=== PATIENT | female | born 1980 | race Caucasian/White ===

== ENCOUNTER 2017-12-11 01:31 | Emergency (ER) | payer SELFPAY ==
--- OUTSIDE RECORDS SUMMARY | 2017-12-11 01:33 | XMS REPORT ---
:1980 [facility] [address] [place] [address] [place] [id number] Care Team Providers Name Role Phone UNKNOWN, REFFERING Primary Care Provider Unavailable JUN LOWERY M.D. Unavailable Unavailable Problems This patient has no known problems. Allergies, Adverse Reactions, Alerts This patient has no known allergies or adverse reactions. Medications This patient has no known medications. Results Test Description Test Time Test Comments Text Results Atomic Results Result Comments Chlamydia/GC Amplification 2017-08-26 12:49:00 Test Item Value Reference Range Comments Chlamydia trachomatis, CECILIA (test vsec=601776) Negative Negative Neisseria gonorrhoeae, CECILIA (test wnwx=[id number]) Negative Negative Smear, Wet [id number] 10:19:00 Test Item Value Reference Range Comments WBC (test code=JWBC) NONE EPITHELIAL CELLS (test code=JEPITH) MODERATE BACTERIA (test code=JBACTERIA) MODERATE CLUE CELLS (test code=JCLUE) NONE YEAST (test code=JYEAST) NONE TRICHOMONAS (test code=JTRICH) NONE RPR, [id number] 02:13:00 Test Item Value Reference Range Comments RPR (test code=RPR) Non-Reactive Non-Reactive Thyroid Stimulating Hormone (TSH)2017-08-21 08:25:00 Test Item Value Reference Range Comments TSH (test code=TSH) 1.67 mIU/mL 0.270-4.200 Lipid [id number] 08:25:00 Test Item Value Reference Range Comments Cholesterol (test 172 mg/dL 0-200 code=CHOL) Triglycerides (test 106 mg/dL 9-200 code=TRIG) HDL (test code=HDL) 43 mg/dL 50-60 Chol/HDL (test 4.0 Ratio 0.0-4.4 code=CHOLPHDL) LDL, Calculated (test 108 0-130 (NOTE)RISK OF HEART code=LDLC) DISEASEPublished by [place] Heart AssociationAnalyte Optimal Boderline Increased RiskCHOL <200 200-239 >240TRIG <150 150-199 >200HDL Male: >60 <40HDL Female: >60 <50LDL <100 130-159 >160LDL NEAR OPTIMAL IS 100-129 VLDL (test code=VLDL) 21 mg/dL 5-40 LDL/HDL (test code=LDLPHDL) 3 BHCG, Serum, [id number] 07:53:00 Test Item Value Reference Range Comments Preg Qual [Se] (test code=BSHCG) Negative Negative Alcohol/Ethanol, [id number] 20:38:00 Test Item Value Reference Range Comments Alcohol, Ethyl (test <0.01 g/dL 0.00-0.01 Intoxicated 0.080 g/dL or code=ETOH) more Comprehensive Metabolic [id number] 20:38:00 Test Item Value Reference Range Comments Sodium (test code=NA) 137 mmol/L 135-145 Potassium (test code=K) 4.2 mmol/L 3.5-5.1 Chloride (test code=CL) 99 mmol/L 98-105 Carbon Dioxide (test 23 mmol/L 22-29 code=CO2) Glucose (test code=GLU) 83 mg/dL 70-115 Blood Urea Nitrogen 18 mg/dL 6-20 (test code=BUN) Creatinine (test 0.8 mg/dL 0.5-0.9 code=CREAT) Calcium (test code=CA) 10.2 mg/dL 8.3-10.5 Prot Total (test 9.1 g/dL 6.4-8.3 code=TP) Albumin (test code=ALB) 5.5 g/dL 3.5-5.2 A/G Ratio (test 1.5 Ratio code=AGRATIO) Globulin (test 3.6 2.9-3.1 code=GLOB) Bili Total (test 0.7 mg/dL 0.1-0.9 code=TBIL) Alk Phos (test 48 U/L 35-104 code=APHOS) AST (test code=AST) 16 U/L 1-32 ALT (test code=ALT) 11 U/L 1-33 BUN/Creatinine Ratio 22.5 (test code=BCRATIO) Anion Gap (test 15 mmol/L 7-16 code=AGAP) Estimated GFR (test >60 eGFR (estimated Glomerular code=GFR) mL/min/1.73m2 Filtration Rate) is an estimated value,calculated from the patient's serum creatinine using the MDRD equation.It is NOT the patient's actual GFR. The eGFR provides a more clinicallyuseful measure of kidney disease than serum creatinine alone.This calculation takes sex and race into account, if the informationis provided. If the race is not provided, and the patient isAfrican-[place]ian, multiply by 1.212. If sex is not provided, and thepatient is female, multiply by 0.742. Results for patients <18 years ofage have not been validated by the MDRD study and should be interpretedwith caution.eGFR Result Interpretation:eGFR > or=60 is in the Normal RangeeGFR < 60 may mean kidney diseaseeGFR < 15 may mean kidney failureRanges recommended by the National Kidney Foundation,http://nkdep.ni h.gov [id number] 20:31:00 Test Item Value Reference Range Comments Amphetamine (test code=AMPH) POSITIVE Negative For diagnostic purposes only, positive results should always be assessedin conjunctionwith the patient's medical history,clinical examination and otherfindings.To fulfill legal requirements, a more specific alternate chemical methodmust be used inorder to obtain a Confirmed analytical result. GC/MS is the preferred confirmatory method. Barbiturates (test code=KYRIE) Negative Negative Benzodiazepine (test Negative Negative code=CHARLIE) Cocaine (test code=COCA) Negative Negative Opiates (test code=OPIA) Negative Negative PCP (test code=PCP) Negative Negative THC (test code=THC) POSITIVE Negative CBC with [id number] 20:30:00 Test Item Value Reference Range Comments WBC (test code=WBC) 14.6 K/cumm 4.4-10.5 RBC (test code=RBC) 4.89 M/cumm 3.75-5.20 Hemoglobin (test code=HGB) 14.6 gm/dL 12.2-14.8 Hematocrit (test code=HCT) 41.7 % 36.5-44.4 MCV (test code=MCV) 85.2 fL 80-100 MCH (test code=MCH) 29.9 pg 27.0-32.5 MCHC (test code=MCHC) 35.1 g/dL 32.0-37.5 RDW (test code=RDW) 14.2 % 11.5-14.5 Platelet Count (test code=PLTCT) 351 K/cumm 140-440 MPV (test code=MPV) 9.5 fL Diff Method (test code=DIFFM) Auto Neutrophil (test code=NEUT) 51.6 % 36-70 Lymphocyte (test code=LYMPH) 39.7 % 12-44 Monocyte (test code=MONO) 5.1 % 0-11 Eosinophil (test code=EOS) 3.0 % 0-7 Basophil (test code=BASO) 0.7 % 0-2 Neutro Abs (test code=ANEUT) 7.5 K/cumm 1.6-7.4 Lymph Abs (test code=ALYMPH) 5.8 K/cumm 0.5-4.6 Limestone Abs (test code=AMONO) 0.8 K/cumm 0.0-1.2 Eos Abs (test code=AEOS) 0.43 K/cumm 0.00-0.74 Baso Abs (test code=ABASO) 0.1 K/cumm 0.00-0.21 BHCG, Serum, [id number] 20:29:00 Test Item Value Reference Range Comments Preg Qual [Se] (test code=BSHCG) Negative Negative
[2017-12-11] MEDS ORDERED: ONDANSETRON 4 MG/2 ML VIAL ONE (02:32)
[2017-12-11] MEDS ORDERED: NA CHLORIDE 0.9% 1,000 ML ONE (02:33)
[2017-12-11 02:42] LABS: Absolute Lymphocytes (CBC) 4.2 K/uL (0.7-4.9); Absolute Monocytes 0.6 K/uL (0.1-1.3); Absolute Neutrophil 3.2 K/uL (1.8-8.0); Basophils % 0.8 % (0-1.3); Eosinophils % 3.5 % (0-4.4); Hematocrit 37.6 % (36.0-45.0); Lymphocytes % 50.4 % (15.3-44.8); MCV 90.2 fL (80-100); MPV 8.6 fL (7.6-11.3); RBC Red Blood Cell Count 4.17 M/uL (3.86-4.86)
[2017-12-11 02:52] LABS: Bicarbonate 27 mEq/L (21-31); Glucose Level 91 mg/dL (65-120); Lipase 38 U/L (22-51); Potassium 3.3 mEq/L (3.6-5.0); Sodium Level 139 mEq/L (135-145)
[2017-12-11 02:58] LABS: ALT/SGPT 13 IU/L (10-60); AST/SGOT 18 IU/L (10-42); Albumin 4.1 g/dL (3.2-5.5); Alkaline Phosphatase 40 IU/L (42-121); Amylase Level 72 U/L (28-100); BUN Blood Urea Nitrogen 13 mg/dL (6-20); Bilirubin Direct < 0.1 mg/dL (0-0.2); Bilirubin Total 0.3 mg/dL (0.3-1.2)
[2017-12-11 03:05] LABS: Urine Blood NEGATIVE (NEG); Urine Glucose NEGATIVE (NEG); Urine Protein NEGATIVE (NEG); Urine Specific Gravity 1.025 (1.005-1.030)
[2017-12-11 03:09] LABS: Urine Amorphous Sediment 4+ /HPF (NONE SEEN)
[2017-12-11 03:10] LABS: Urine Bacteria <20 /HPF (<20); Urine Culture Reflex Order NOT NEEDED; Urine RBC NONE SEEN /HPF (NONE SEEN)
[2017-12-11] MEDS ORDERED: POTASSIUM CL SA 10 MEQ TAB PO ONE (03:20)
[2017-12-11] MEDS ORDERED: METRONIDAZOLE 500mg IVPB 500 MG/100 ML BAG IV ONE (05:23)
[2017-12-11] MEDS ORDERED: AZITHROMYCIN 250 MG TAB ONE (05:23)
--- NOTE | 2017-12-11 05:26 | ER ---
Nurse's Notes [facility] Name: Iliana Tolentino Age: 37 yrs Sex: Female : 1980 Arrival Date: 12/11/2017 Time: 01:33 Bed 15 Private MD: Diagnosis: Abdominal tenderness;Diverticular disease of intestine-sigmoid;Left sided colitis Presentation: 12/11 01:34 Presenting complaint: EMS states: "She is having upper abdominal pain for the last few ao days. Patient reports a positive test and a late menstruation period." Patient positive for nausea. Transition of care: patient was not received from another setting of care. Onset of symptoms is unknown. Initial Sepsis Screen: Does the patient meet any 2 criteria? No. Patient's initial sepsis screen is negative. Does the patient have a suspected source of infection? No. Patient's initial sepsis screen is negative. Care prior to arrival: None. 01:34 Method Of Arrival: EMS: [facility] ao 01:34 Acuity: KAROL 3 ao Triage Assessment: 01:39 General: Appears in no apparent distress. comfortable, Behavior is calm, cooperative, ao appropriate for age. General: Report use of meth. Pain: Complains of pain in abdomen Pain currently is 6 out of 10 on a pain scale. EENT: No signs and/or symptoms were reported regarding the EENT system. Neuro: Level of Consciousness is awake, alert, obeys commands, Oriented to person, place, time, situation, Moves all extremities. Speech is normal. Cardiovascular: Patient's skin is warm and dry. Respiratory: Airway is patent Respiratory effort is even, unlabored, Respiratory pattern is regular, symmetrical. GI: Abdomen is non-distended, Reports upper abdominal pain, nausea. : No signs and/or symptoms were reported regarding the genitourinary system. Derm: Skin is intact, Skin is pink, warm \\T\\ dry. normal. Musculoskeletal: Range of motion: intact in all extremities. 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 - Social history:: Smoking status: Patient uses tobacco products, smokes one pack cigarettes per day. Patient uses alcohol, occasionally. street drugs, Methamphetamine (Meth). - Family history:: not pertinent. Screenin:39 Abuse screen: Denies threats or abuse. Denies injuries from another. Nutritional ao screening: No deficits noted. Tuberculosis screening: No symptoms or risk factors identified. Fall Risk None identified. Assessment: 01:41 GI: Bowel sounds present X 4 quads. Abd is soft and non tender X 4 quads. ao 01:42 General: See triage note for full assessment. ao 02:52 Reassessment: Patient appears in no apparent distress at this time. No changes from ao previously documented assessment. Patient and/or family updated on plan of care and expected duration. Pain level reassessed. Patient is alert, oriented x 3, equal unlabored respirations, skin warm/dry/pink. Patient is done with contrast at 0250. CT was notified. 03:55 Reassessment: Patient appears in no apparent distress at this time. Patient and/or ao family updated on plan of care and expected duration. Pain level reassessed. Patient is alert, oriented x 3, equal unlabored respirations, skin warm/dry/pink. 04:22 Reassessment: Patient resting with significant other and shows no SS of distress. ao 05:37 Reassessment: Patient appears in no apparent distress at this time. Patient and/or ao family updated on plan of care and expected duration. Pain level reassessed. Patient is alert, oriented x 3, equal unlabored respirations, skin warm/dry/pink. Patient is currently getting Flagyl and will be discharge when is done about 30 min, Patient agree with POC. 06:26 Reassessment: DC instructions given to patient. Patient understand the POC and to ao follow up with PCP. Patient has no questions at this time. Vital Signs: 01:38 BP 134 / 91; Pulse 64; Resp 16; Temp 99.5(A); Pulse Ox 100% on R/A; Weight 54.43 kg ao (R); Height 5 ft. 1 in. (154.94 cm) (R); Pain 6/10; 02:52 BP 128 / 92; Pulse 61; Resp 12; Pulse Ox 99% on R/A; ao 03:55 BP 134 / 82; Pulse 60; Resp 14; Pulse Ox 100% on R/A; Pain 0/10; ao 04:48 BP 124 / 74; Pulse 59; Resp 16; Pulse Ox 100% on R/A; Pain 0/10; ao 06:10 BP 120 / 72; Pulse 64; Resp 14; Pulse Ox 100% ; ao 01:38 Body Mass Index 22.67 (54.43 kg, 154.94 cm) ao ED Course: 01:33 Patient arrived in ED. ao 01:36 Triage completed. ao 01:36 Arm band placed on right wrist. Patient placed in an exam room, Patient notified of ao wait time. 01:41 Patient has correct armband on for positive identification. Pulse ox on. NIBP on. ao 02:08 Wilbert Selby MD is Attending Physician. jay 02:18 Christiano Hayes RN is Primary Nurse. ao 02:25 Inserted saline lock: 22 gauge in right forearm, using aseptic technique. Blood ao collected. 02:35 X-ray completed. Portable x-ray completed in exam room. Patient tolerated procedure kw well. 02:36 Chest Single View XRAY In Process Unspecified. EDMS 04:13 CT Abd/Pelvis - W/Contrast In Process Unspecified. EDMS 05:20 Trevor Delgado MD is Referral Physician. jay 06:25 No provider procedures requiring assistance completed. IV discontinued, intact, ao bleeding controlled, No redness/swelling at site. Pressure dressing applied. Administered Medications: 02:37 Drug: NS 0.9% 1000 ml Route: IV; Rate: 1 bolus; Site: right forearm; ao 03:26 Follow up: IV Status: Completed infusion ao 02:37 Drug: Zofran 4 mg Route: IVP; Site: right forearm; ao 03:26 Follow up: Response: No adverse reaction ao 03:22 Drug: Potassium Chloride 40 mEq Route: PO; ao 05:09 Follow up: Response: No adverse reaction ao 05:37 Drug: Flagyl 500 mg Volume: 100 ml; Route: IVPB; Rate: 200 ml/hr; Infused Over: 30 ao mins; Site: right forearm; 06:44 Follow up: IV Status: Completed infusion; IV Intake: 100ml ao 05:37 Drug: Cipro 500 mg Route: PO; ao 06:43 Follow up: Response: No adverse reaction ao Intake: 06:44 IV: 100ml; Total: 100ml. ao Outcome: 05:26 Discharge ordered by . jay 06:25 Discharged to home ambulatory. ao 06:25 Condition: stable 06:25 Discharge instructions given to patient, Instructed on discharge instructions, follow up and referral plans. Demonstrated understanding of instructions, follow-up care, medications, wound care, Prescriptions given X x5 06:43 Patient left the ED. ao Signatures: Dispatcher [employer] EDSC Wilbert Selby MD MD cha Whitley, Kimberlee kw Ortiz, Alex RN RN ao Corrections: (The following items were deleted from the chart) 05:48 01:34 Presenting complaint: EMS states: " She is been having abdominal pain for the ao last few days. Patient reports upper abdominal pain. Patient reports a positive test and a late menstruation period." Patient positive for nausea. ao
--- NOTE | 2017-12-11 05:26 | EDPHYS ---
Physician Documentation [facility] Name: Iliana Tolentino Age: 37 yrs Sex: Female : 1980 Arrival Date: 12/11/2017 Time: 01:33 Bed 15 Private MD: ED Physician Wilbert Selby HPI: 12/11 02:19 This 37 yrs old Female presents to ER via EMS with complaints of Abdominal jay Pain. 02:19 The patient presents with abdominal pain in the upper abdomen, in the lower abdomen. jay Onset: The symptoms/episode began/occurred 2 day(s) ago. The symptoms do not radiate. Associated signs and symptoms: none. The symptoms are described as crampy. Modifying factors: The symptoms are alleviated by nothing, the symptoms are aggravated by nothing. Severity of pain: At its worst the pain was mild in the emergency department the pain is unchanged. The patient has not experienced similar symptoms in the past. 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 - Social history:: Smoking status: Patient uses tobacco products, smokes one pack cigarettes per day. Patient uses alcohol, occasionally. street drugs, Methamphetamine (Meth). - Family history:: not pertinent. ROS: 02:19 Constitutional: Negative for fever, chills, and weight loss, Eyes: Negative for injury, jay pain, redness, and discharge, ENT: Negative for injury, pain, and discharge, Neck: Negative for injury, pain, and swelling, Cardiovascular: Negative for chest pain, palpitations, and edema, Respiratory: Negative for shortness of breath, cough, wheezing, and pleuritic chest pain, Back: Negative for injury and pain, : Negative for injury, bleeding, discharge, and swelling, MS/Extremity: Negative for injury and deformity, Skin: Negative for injury, rash, and discoloration, Neuro: Negative for headache, weakness, numbness, tingling, and seizure, Psych: Negative for depression, anxiety, suicide ideation, homicidal ideation, and hallucinations, Allergy/Immunology: Negative for hives, rash, and allergies, Endocrine: Negative for neck swelling, polydipsia, polyuria, polyphagia, and marked weight changes. 02:19 Abdomen/GI: Positive for abdominal pain, of the right upper quadrant and left upper quadrant. Exam: 02:19 Constitutional: This is a well developed, well nourished patient who is awake, alert, jay and in no acute distress. Head/Face: Normocephalic, atraumatic. Eyes: Pupils equal round and reactive to light, extra-ocular motions intact. Lids and lashes normal. Conjunctiva and sclera are non-icteric and not injected. Cornea within normal limits. Periorbital areas with no swelling, redness, or edema. ENT: Nares patent. No nasal discharge, no septal abnormalities noted. Tympanic membranes are normal and external auditory canals are clear. Oropharynx with no redness, swelling, or masses, exudates, or evidence of obstruction, uvula midline. Mucous membranes moist. Neck: Trachea midline, no thyromegaly or masses palpated, and no cervical lymphadenopathy. Supple, full range of motion without nuchal rigidity, or vertebral point tenderness. No Meningismus. Chest/axilla: Normal chest wall appearance and motion. Nontender with no deformity. No lesions are appreciated. Cardiovascular: Regular rate and rhythm with a normal S1 and S2. No gallops, murmurs, or rubs. Normal PMI, no JVD. No pulse deficits. Respiratory: Lungs have equal breath sounds bilaterally, clear to auscultation and percussion. No rales, rhonchi or wheezes noted. No increased work of breathing, no retractions or nasal flaring. Back: No spinal tenderness. No costovertebral tenderness. Full range of motion. Female : Normal external genitalia. Skin: Warm, dry with normal turgor. Normal color with no rashes, no lesions, and no evidence of cellulitis. MS/ Extremity: Pulses equal, no cyanosis. Neurovascular intact. Full, normal range of motion. Neuro: Awake and alert, GCS 15, oriented to person, place, time, and situation. Cranial nerves II-XII grossly intact. Motor strength 5/5 in all extremities. Sensory grossly intact. Cerebellar exam normal. Normal gait. Psych: Awake, alert, with orientation to person, place and time. Behavior, mood, and affect are within normal limits. 02:19 Abdomen/GI: Inspection: abdomen appears normal, Bowel sounds: normal, Palpation: mild abdominal tenderness, in the umbilical area, right upper quadrant and left upper quadrant. Vital Signs: 01:38 BP 134 / 91; Pulse 64; Resp 16; Temp 99.5(A); Pulse Ox 100% on R/A; Weight 54.43 kg ao (R); Height 5 ft. 1 in. (154.94 cm) (R); Pain 6/10; 02:52 BP 128 / 92; Pulse 61; Resp 12; Pulse Ox 99% on R/A; ao 03:55 BP 134 / 82; Pulse 60; Resp 14; Pulse Ox 100% on R/A; Pain 0/10; ao 04:48 BP 124 / 74; Pulse 59; Resp 16; Pulse Ox 100% on R/A; Pain 0/10; ao 06:10 BP 120 / 72; Pulse 64; Resp 14; Pulse Ox 100% ; ao 01:38 Body Mass Index 22.67 (54.43 kg, 154.94 cm) ao MDM: 02:08 Patient medically screened. [facility] 02:19 Data reviewed: vital signs, nurses notes, lab test result(s), radiologic studies, CT jay scan, plain films. 12/11 02:18 Order name: Urine Dipstick--Ancillary (enter results); Complete Time: 05:18 em 12/11 02:18 Order name: Urine --Ancillary (enter results); Complete Time: 05:18 em 12/11 02:19 Order name: Amylase, Serum; Complete Time: 03:03 [facility] 12/11 02:19 Order name: Basic Metabolic Panel; Complete Time: 03:03 [facility] 12/11 02:19 Order name: CBC with Diff; Complete Time: 03:03 [facility] 12/11 02:19 Order name: Creatinine for Radiology; Complete Time: 03:03 [facility] 12/11 02:19 Order name: Hepatic Function; Complete Time: 03:03 [facility] 12/11 02:19 Order name: Lipase; Complete Time: 03:03 [facility] 12/11 02:19 Order name: Urine Microscopic Only; Complete Time: 05:18 [facility] 12/11 02:19 Order name: Chest Single View XRAY jay 12/11 02:19 Order name: CT Abd/Pelvis - W/Contrast [facility] 12/11 02:21 Order name: Test, Serum; Complete Time: 05:18 [facility] 12/11 02:18 Order name: Urine Dipstick-Ancillary (obtain specimen); Complete Time: 02:18 [facility] 12/11 02:18 Order name: Urine Test (obtain specimen); Complete Time: 02:18 em 12/11 02:19 Order name: Urine Test (obtain specimen); Complete Time: 02:22 [facility] 12/11 02:19 Order name: IV Saline Lock; Complete Time: 02:37 [facility] 12/11 02:19 Order name: Labs collected and sent; Complete Time: 02:37 [facility] 12/11 02:19 Order name: Urine Dipstick-Ancillary (obtain specimen); Complete Time: 02:21 [facility] Administered Medications: 02:37 Drug: NS 0.9% 1000 ml Route: IV; Rate: 1 bolus; Site: right forearm; ao 03:26 Follow up: IV Status: Completed infusion ao 02:37 Drug: Zofran 4 mg Route: IVP; Site: right forearm; ao 03:26 Follow up: Response: No adverse reaction ao 03:22 Drug: Potassium Chloride 40 mEq Route: PO; ao 05:09 Follow up: Response: No adverse reaction ao 05:37 Drug: Flagyl 500 mg Volume: 100 ml; Route: IVPB; Rate: 200 ml/hr; Infused Over: 30 ao mins; Site: right forearm; 06:44 Follow up: IV Status: Completed infusion; IV Intake: 100ml ao 05:37 Drug: Cipro 500 mg Route: PO; ao 06:43 Follow up: Response: No adverse reaction ao Disposition: 12/11/17 05:26 Discharged to Home. Impression: Abdominal tenderness, Diverticular disease of intestine - sigmoid, Left sided colitis. - Condition is Stable. - Discharge Instructions: Abdominal Pain, Adult, Diverticulitis, Diverticulosis, Diverticulitis, [id number], Abdominal Pain, Adult, Sudl-up-Mpup. - Prescriptions for Bentyl 20 mg Oral Tablet - take 1 tablet by ORAL route every 6 hours As needed; 20 tablet. Flagyl 500 mg Oral Tablet - take 1 tablet by ORAL route every 8 hours for 10 days; 21 tablet. Pepcid 20 mg Oral Tablet - take 1 tablet by ORAL route every 12 hours for 10 days; 20 tablet. Zofran 4 mg Oral Tablet - take 1 tablet by ORAL route every 12 hours As needed; 20 tablet. Cipro 500 mg Oral Tablet - take 1 tablet by ORAL route every 12 hours for 7 days; 14 tablet. - Medication Reconciliation Form, Thank You Letter, Antibiotic Education, Prescription Opioid Use form. - Follow up: Private Physician; When: 2 - 3 days; Reason: Recheck today's complaints, Continuance of care, Re-evaluation by your physician. Follow up: Trevor Delgado MD; When: 2 - 3 days; Reason: Recheck today's complaints, Continuance of care, Re-evaluation by your physician. - Problem is new. - Symptoms are unchanged. Signatures: Dispatcher [employer] EDWilbert Crews MD MD cha Martinez, Eric em1 Christiano Hayes, RN RN ao
--- NOTE | 2017-12-11 07:56 | RAD REPORT ---
EXAM DESCRIPTION: [facility] Single View12/11/2017 2:39 am CLINICAL HISTORY: Abdominal pain COMPARISON: 2014 FINDINGS: A 5 millimeter nodular opacity overlies the left upper lobe. The remainder of the lungs appear clear of acute infiltrate. The heart is normal size IMPRESSION: 5 millimeter nodular opacity overlies the left upper lobe. This may represent a pulmona ry nodule or confluence of bone and vessels. Followup chest film in 3 months is recommended for re-ev aluation. An apical lordotic view should also be obtained at this time
--- NOTE | 2017-12-11 08:43 | RAD REPORT ---
EXAM DESCRIPTION: CT - Abdomen Pelvis W Contrast - 12/11/2017 6:44 am CLINICAL HISTORY: Abdominal pain. Epigastric pain COMPARISON: 2014 TECHNIQUE: Computed axial tomography of the abdomen and pelvis was obtained. 100 cc Isovue-300 is ad ministered intravenously. Oral contrast was given.A preliminary report was generated by [employer] and review prior to this dictation All CT scans are performed using dose optimization technique as appropriate and may include automated exposure control or mA/KV adjustment according to patient size. FINDINGS: The liver, spleen, pancreas, adrenals and kidneys appear unremarkable. The wall of the proximal sigmoid colon is thickened. Diverticula are present. Slight stranding is see n within the adjacent fat. An adnexal mass is not noted. IMPRESSION: Thickening of the wall of the proximal sigmoid colon with slight stranding within the a djacent fat may be secondary to muscular hypertrophy related to diverticulosis and a minimal divertic ulitis. A mass can also have this appearance but is considered less likely. Direct visualization is r ecommended.
== END 2017-12-11 06:43 | disposition home or self-care (01) ==
LOC: ER 01:31
DX: K51.50 Left sided colitis without complications (principal); K57.30 Diverticulosis of large intestine without perforation or abscess without bleeding; F17.210 Nicotine dependence, cigarettes, uncomplicated; F31.9 Bipolar disorder, unspecified
CPT/HCPCS: 36415; 71045; 74177; 80048; 80076; 81003; 81015; 81025; 82150; 83690; 84703; 85025; 96361; 96365; 96375; 99284; J2405; J7030; Q9967

== ENCOUNTER 2018-06-14 16:18 | Emergency (ER) | payer SELFPAY ==
--- OUTSIDE RECORDS SUMMARY | 2018-06-14 16:19 | XMS REPORT ---
:1980 Author Organization [facility] Address [address] [place] [id number] Care Team Providers Name Role Phone UNKNOWN, [...] Reference Range Comments Chlamydia trachomatis, CECILIA (test [id number]) Negative Negative Neisseria gonorrhoeae, CECILIA (test [id number]) Negative Negative Smear, Wet [id number] 10:19:00 Test Item Value Reference Range Comments WBC (test code=JWBC) NONE EPITHELIAL CELLS (test code=JEPITH) MODERATE BACTERIA (test code=JBACTERIA) MODERATE CLUE CELLS (test code=JCLUE) NONE YEAST (test code=JYEAST) NONE TRICHOMONAS (test code=JTRICH) NONE RPR, [id number] 02:13:00 Test Item Value Reference Range Comments RPR (test code=RPR) Non-Reactive Non-Reactive Thyroid Stimulating Hormone (TSH)2017-08-21 08:25:00 Test Item Value Reference Range Comments TSH (test code=TSH) 1.67 mIU/mL 0.270-4.200 Lipid [id number] 08:25:00 Test Item Value Reference Range Comments Cholesterol (test 172 mg/dL 0-200 code=CHOL) Triglycerides (test 106 mg/dL 9-200 code=TRIG) HDL (test code=HDL) 43 mg/dL 50-60 Chol/HDL (test 4.0 Ratio 0.0-4.4 code=CHOLPHDL) LDL, Calculated (test 108 0-130 (NOTE)RISK OF HEART code=LDLC) DISEASEPublished by Barb[place] Heart AssociationAnalyte Optimal Boderline Increased RiskCHOL <200 200-239 >240TRIG <150 150-199 >200HDL Male: >60 <40HDL Female: >60 <50LDL <100 130-159 >160LDL NEAR OPTIMAL IS 100-129 VLDL (test code=VLDL) 21 mg/dL 5-40 LDL/HDL (test code=LDLPHDL) 3 BHCG, Serum, [id number] 07:53:00 Test Item Value Reference Range Comments Preg Qual [Se] (test code=BSHCG) Negative Negative Alcohol/Ethanol, [id number] 20:38:00 Test Item Value Reference Range Comments Alcohol, Ethyl (test <0.01 g/dL 0.00-0.01 Intoxicated 0.080 g/dL or code=ETOH) more Comprehensive Metabolic [id number] 20:38:00 Test Item Value Reference Range Comments [...] mmol/L 7-16 code=AGAP) Estimated GFR (test >60 mL/min/1.73m2 eGFR (estimated Glomerular code=GFR) Filtration Rate) is an estimated value,calculated from the patient's serum creatinine using the MDRD equation.It is NOT the patient's actual GFR. The eGFR provides a more clinicallyuseful measure of kidney disease than serum creatinine alone.This calculation takes sex and race into account, if the informationis provided. If the race is not provided, and the patient isAfrican-Barbadian, multiply by 1.212. If sex is not provided, and thepatient is female, multiply by 0.742. Results for patients <18 years ofage have not been validated by the MDRD study and should be interpretedwith caution.eGFR Result Interpretation:eGFR > or=60 is in the Normal RangeeGFR < 60 may mean kidney diseaseeGFR < 15 may mean kidney failureRanges recommended by the National Kidney Foundation,http://nkdep.nih .gov [id number] 20:31:00 Test Item Value Reference Range Comments [...] THC (test code=THC) POSITIVE Negative CBC with [id number] 20:30:00 Test Item Value Reference Range Comments [...] Lymph Abs (test code=ALYMPH) 5.8 K/cumm 0.5-4.6 [place]morton Abs (test code=AMONO) 0.8 K/cumm 0.0-1.2 Eos Abs (test code=AEOS) 0.43 K/cumm 0.00-0.74 Baso Abs (test code=ABASO) 0.1 K/cumm 0.00-0.21 BHCG, Serum, [id number] 20:29:00 Test Item Value Reference Range Comments Preg Qual [Se] (test code=BSHCG) Negative Negative
--- NOTE | 2018-06-14 17:27 | ER ---
Nurse's Notes [facility] Name: Iliana Tolentino Age: 38 yrs Sex: Female : 1980 Arrival Date: 06/14/2018 Time: 16:18 Bed DIS13 Private MD: Diagnosis: Encounter for Medication Refill Presentation: 06/14 16:46 Presenting complaint: Patient states: " I've been out of my meds for about 2 months.' ph Pt takes medications for bipolar disorder, reports feeling agitated. Transition of care: patient was not received from another setting of care. Onset of symptoms was June 14, 2018. Risk Assessment: Do you want to hurt yourself or someone else? Patient reports no desire to harm self or others. Initial Sepsis Screen: Does the patient meet any 2 criteria? No. Patient's initial sepsis screen is negative. Does the patient have a suspected source of infection? No. Patient's initial sepsis screen is negative. Care prior to arrival: None. 16:46 [facility]: [facility] 4 ph Historical: - Allergies: 16:46 No Known Allergies; ph - Home Meds: 16:46 Celexa Oral [Active]; Risperdal Oral [Active]; Vistaril Oral [Active]; ph - PMHx: 16:46 Bipolar disorder; Ovarian cyst; ph - Immunization history:: Adult Immunizations unknown. - Social history:: Smoking status: unknown. - Ebola Screening: : Patient denies exposure to infectious person Patient denies travel to an Ebola-affected area in the 21 days before illness onset. Screenin:25 Abuse screen: Denies threats or abuse. Denies injuries from another. Nutritional ss screening: No deficits noted. Tuberculosis screening: Never had TB. Fall Risk None identified. Assessment: 17:25 General: Appears in no apparent distress. comfortable, Behavior is calm, cooperative. ss Pain: Denies pain. Neuro: Level of Consciousness is awake, alert, obeys commands, Oriented to person, place, time, situation. Cardiovascular: Capillary refill < 3 seconds is brisk in bilateral fingers Patient's skin is warm and dry. Respiratory: Airway is patent Respiratory effort is even, unlabored, Respiratory pattern is regular, symmetrical. GI: No signs and/or symptoms were reported involving the gastrointestinal system. EENT: Nares are clear. Derm: Skin is intact, is healthy with good turgor, Skin is dry, Skin is pink, warm \\T\\ dry. normal. Vital Signs: 16:40 BP 183 / 80; Pulse 120; Resp 18; Temp 97.9; Pulse Ox 99% on R/A; Pain 0/10; dm5 ED Course: 16:18 Patient arrived in ED. as 16:47 Triage completed. ph 16:47 Arm band placed on. ph 17:21 Marc Reynolds PA is PHCP. jr8 17:21 Wilbert Selby MD is Attending Physician. jr8 17:25 Andria Castillo, RN is Primary Nurse. ss 17:25 Patient has correct armband on for positive identification. Bed in low position. Call ss light in reach. 17:34 No provider procedures requiring assistance completed. Patient did not have IV access ss during this emergency room visit. Administered Medications: No medications were administered Outcome: 17:27 Discharge ordered by . [facility] 17:34 Discharged to home ambulatory. ss 17:34 Condition: good 17:34 Discharge instructions given to patient, Instructed on discharge instructions, follow up and referral plans. medication usage, Demonstrated understanding of instructions, follow-up care, medications, Prescriptions given X 3. 17:34 Patient left the ED. ss Signatures: Cheyanne Gautam, RN RN dm5 Renee Berry as Andria Castillo, PUMA RN Marc Reynolds PA PA jr8 Martina Jimenez RN RN
--- NOTE | 2018-06-14 17:27 | EDPHYS ---
Physician Documentation [facility] Name: Iliana Tolentino Age: 38 yrs Sex: Female : 1980 Arrival Date: 06/14/2018 Time: 16:18 Bed DIS13 Private MD: ED Physician Wilbert Selby HPI: 06/14 17:31 This 38 yrs old Female presents to ER via EMS with complaints of Medication jr8 Refill. 17:31 The patient presents to the emergency department requesting refill(s) for: Celexa, jr8 Risperedol, and Hydroxizine. The patient chronically suffers from Bipoloar disorder . chronically . The patient has not recently seen a physician. Stated that her woman's insurance had lapsed and just got it back. Has been out of her meds and is needing back on them so she does not go into acute depression or rita. Starting to feel more aggravated. Has appointment with [facility] but not for another month . Historical: - Allergies: 16:46 No Known Allergies; ph - Home Meds: 16:46 Celexa Oral [Active]; Risperdal Oral [Active]; Vistaril Oral [Active]; ph - PMHx: 16:46 Bipolar disorder; Ovarian cyst; ph - Immunization history:: Adult Immunizations unknown. - Social history:: Smoking status: unknown. - Ebola Screening: : Patient denies exposure to infectious person Patient denies travel to an Ebola-affected area in the 21 days before illness onset. ROS: 17:31 Psych: Positive for depression, Negative for anxiety, auditory hallucinations, visual jr8 hallucinations, suicide gesture, suicidal ideation. 17:31 Constitutional: Negative for fever, chills, and weight loss. jr8 17:31 All other systems are negative. Exam: 17:31 Eyes: Pupils equal round and reactive to light, extra-ocular motions intact. Lids and jr8 lashes normal. Conjunctiva and sclera are non-icteric and not injected. Cornea within normal limits. Periorbital areas with no swelling, redness, or edema. ENT: Nares patent. No nasal discharge, no septal abnormalities noted. Tympanic membranes are normal and external auditory canals are clear. Oropharynx with no redness, swelling, or masses, exudates, or evidence of obstruction, uvula midline. Mucous membranes moist. Neck: Trachea midline, no thyromegaly or masses palpated, and no cervical lymphadenopathy. Supple, full range of motion without nuchal rigidity, or vertebral point tenderness. No Meningismus. Cardiovascular: Regular rate and rhythm with a normal S1 and S2. No gallops, murmurs, or rubs. Normal PMI, no JVD. No pulse deficits. Respiratory: Lungs have equal breath sounds bilaterally, clear to auscultation and percussion. No rales, rhonchi or wheezes noted. No increased work of breathing, no retractions or nasal flaring. Abdomen/GI: Soft, non-tender, with normal bowel sounds. No distension or tympany. No guarding or rebound. No evidence of tenderness throughout. Back: No spinal tenderness. No costovertebral tenderness. Full range of motion. Skin: Warm, dry with normal turgor. Normal color with no rashes, no lesions, and no evidence of cellulitis. MS/ Extremity: Pulses equal, no cyanosis. Neurovascular intact. Full, normal range of motion. Neuro: Awake and alert, GCS 15, oriented to person, place, time, and situation. Cranial nerves II-XII grossly intact. Motor strength 5/5 in all extremities. Sensory grossly intact. Cerebellar exam normal. Normal gait. Psych: Awake, alert, with orientation to person, place and time. Behavior, mood, and affect are within normal limits. Vital Signs: 16:40 BP 183 / 80; Pulse 120; Resp 18; Temp 97.9; Pulse Ox 99% on R/A; Pain 0/10; dm5 MDM: 17:21 Patient medically screened. [facility] 17:26 Data reviewed: vital signs, nurses notes, and as a result, I will discharge patient. [facility] Data interpreted: Pulse oximetry: on room air is 99 %. Interpretation: normal. Counseling: I had a detailed discussion with the patient and/or guardian regarding: the historical points, exam findings, and any diagnostic results supporting the discharge/admit diagnosis, the need for outpatient follow up, a psychiatrist, to return to the emergency department if symptoms worsen or persist or if there are any questions or concerns that arise at home. Administered Medications: No medications were administered Disposition: 06/15 09:26 Co-signature as Attending Physician, Wilbert Selby MD I agree with the assessment and jay plan of care. Disposition: 06/14/18 17:27 Discharged to Home. Impression: Encounter for Medication Refill . - Condition is Stable. - Prescriptions for Risperdal 2 mg Oral tablet - take 1 tablet by ORAL route once daily; 30 tablet. Celexa 20 mg Oral Tablet - take 1 tablet by ORAL route once daily; 30 tablet. Hydroxyzine HCl 50 mg Oral Tablet - take 1 tablet by ORAL route every 8 hours As needed; 30 tablet. - Medication Reconciliation Form, Thank You Letter, Antibiotic Education, Prescription Opioid Use form. - Follow up: Private Physician; When: 10 - 14 days; Reason: Recheck today's complaints, Continuance of care, Re-evaluation by your physician. - Problem is new. - Symptoms have improved. Signatures: Wilbert Selby MD MD cha Smirch, Shelby RN RN Marc Reynolds PA PA jr8 Martina Jimenez RN RN ph Corrections: (The following items were deleted from the chart) 06/14 17:34 17:27 06/14/2018 17:27 Discharged to Home. Impression: Encounter for Medication Refill ss . Condition is Stable. Forms are Medication Reconciliation Form, Thank You Letter, Antibiotic Education, Prescription Opioid Use. Follow up: Private Physician; When: 10 - 14 days; Reason: Recheck today's complaints, Continuance of care, Re-evaluation by your physician. Problem is new. Symptoms have improved. jr8
== END 2018-06-14 17:34 | disposition home or self-care (01) ==
LOC: ER 16:18
DX: Z76.0 Encounter for issue of repeat prescription (principal); F31.9 Bipolar disorder, unspecified
CPT/HCPCS: 99283

== ENCOUNTER 2019-05-19 12:17 | Emergency (ER) | payer SELFPAY ==
[2019-05-19 12:49] LABS: Absolute Lymphocytes (CBC) 3.7 K/uL (0.7-4.9); Hematocrit 36.8 % (36.0-45.0); Lymphocytes % 50.2 % (15.3-44.8); MPV 8.4 fL (7.6-11.3); RBC Red Blood Cell Count 3.86 M/uL (3.86-4.86)
[2019-05-19 12:54] LABS: Protime INR 0.96
[2019-05-19 12:55] LABS: Barbiturates NEGATIVE (NEGATIVE); Benzodiazepines NEGATIVE (NEGATIVE); Cocaine NEGATIVE (NEGATIVE); METHAMPHETAM POSITIVE (NEGATIVE); Methadone NEGATIVE (NEGATIVE); Opiates NEGATIVE (NEGATIVE); Phencyclidine NEGATIVE (NEGATIVE); THC Cannibis NEGATIVE (NEGATIVE)
[2019-05-19 13:02] LABS: Urine Blood NEGATIVE (NEG); Urine Glucose NEGATIVE (NEG); Urine Protein NEGATIVE (NEG); Urine Specific Gravity 1.025 (1.005-1.030); Urine pH 5.5 (5.0-7.0)
[2019-05-19 13:10] LABS: ALT/SGPT 24 U/L (12-78); AST/SGOT 13 U/L (15-37); Albumin 3.9 g/dL (3.4-5.0); Alkaline Phosphatase 56 U/L (45-117); BUN Blood Urea Nitrogen 13 mg/dL (7-18); Bicarbonate 31 mmol/L (21-32); Bilirubin Direct < 0.1 mg/dL (0-0.2); Bilirubin Total 0.1 mg/dL (0.2-1.0); Glucose Level 76 mg/dL (74-106); Potassium 3.8 mmol/L (3.5-5.1); Protein, Total 7.3 g/dL (6.4-8.2); Sodium Level 139 mmol/L (136-145)
[2019-05-19 15:54] LABS: Blood Morphology Comment NOT SEEN (NOT SEEN); Platelet Estimate ADEQ
--- NOTE | 2019-05-19 17:34 | ER ---
Nurse's Notes [facility] Name: Iliana Tolentino Age: 39 yrs Sex: Female : 1980 Arrival Date: 05/19/2019 Time: 12:22 Bed 17 Private MD: Diagnosis: suicidal ideations, resolved Presentation: 05/19 12:26 Presenting complaint: [facility] 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 Does not currently have a plan, but does have previous attempts by hanging. When asked if she is still suicidal, patient states that she is unsure. Denies HI. Transition of care: [facility]. Onset of symptoms is unknown. Risk Assessment: Do you want to hurt yourself or someone else? Patient reports no desire to harm self or others. Initial Sepsis Screen: Does the patient meet any 2 criteria? No. Patient's initial sepsis screen is negative. Does the patient have a suspected source of infection? No. Patient's initial sepsis screen is negative. Note Last used meth 2 days ago. Care prior to arrival: None. 12:26 Acuity: KAROL 2 ss 12:26 Method Of Arrival: Law Enforcement: [facility] deputy Historical: - Allergies: 12:32 No Known Allergies; ss - PMHx: 12:32 Bipolar disorder; Ovarian cyst; ss - Immunization history:: Adult Immunizations unknown. - Social history:: Smoking status: Patient uses tobacco products, smokes one pack cigarettes per day. Patient uses street drugs, marijuana, Methamphetamine (Meth) admits to abuses Suboxone . - Ebola Screening: : Patient denies exposure to infectious person Patient denies travel to an Ebola-affected area in the 21 days before illness onset. Screenin:39 Abuse screen: Denies threats or abuse. Denies injuries from another. Nutritional jl7 screening: No deficits noted. Tuberculosis screening: No symptoms or risk factors identified. Fall Risk IV access (20 points). Total Erwin Fall Scale indicates No Risk (0-24 pts). Assessment: 12:30 General: Appears in no apparent distress. uncomfortable, unkempt, Behavior is jl7 cooperative, quiet. Pain: Denies pain. Neuro: Level of Consciousness is awake, alert, obeys commands, Oriented to person, place, time, situation. Cardiovascular: Patient's skin is warm and dry. Respiratory: Airway is patent Respiratory effort is even, unlabored, Respiratory pattern is regular, symmetrical. GI: No signs and/or symptoms were reported involving the gastrointestinal system. : No signs and/or symptoms were reported regarding the genitourinary system. EENT: No signs and/or symptoms were reported regarding the EENT system. Derm: Skin is pink, warm \T\ dry. Musculoskeletal: No signs and/or symptoms reported regarding the musculoskeletal system. 13:30 Reassessment: Pt laying in bed with eyes closed, respirations even and unlabored, no [facility] signs of distress noted at this time. 14:44 Reassessment: [facility] at bedside. [facility] 14:57 Reassessment: Called [facility] center who reports that they do not ss have any female psych beds available at this time. 15:27 Reassessment: Patient appears in no apparent distress at this time. No changes from 7 previously documented assessment. Patient and/or family updated on plan of care and expected duration. Pain level reassessed. Patient is alert, oriented x 3, equal unlabored respirations, skin warm/dry/pink. 16:30 Reassessment: Patient appears in no apparent distress at this time. No changes from jl7 previously documented assessment. 17:30 Reassessment: Patient appears in no apparent distress at this time. No changes from jl7 previously documented assessment. 18:30 Reassessment: Patient appears in no apparent distress at this time. No changes from jl7 previously documented assessment. 19:00 General: Appears in no apparent distress. comfortable, Behavior is cooperative, quiet, rr5 sitter at bedside, awaiting for mental facility acceptance.. Pain: Denies pain. Neuro: Level of Consciousness is awake, alert, obeys commands, Oriented to person, place, time, situation. Cardiovascular: Capillary refill < 3 seconds Patient's skin is warm and dry. Respiratory: Airway is patent Respiratory effort is even, unlabored, Respiratory pattern is regular, symmetrical. GI: No signs and/or symptoms were reported involving the gastrointestinal system. : No signs and/or symptoms were reported regarding the genitourinary system. EENT: No signs and/or symptoms were reported regarding the EENT system. Derm: Skin is pink, warm \T\ dry. Musculoskeletal: No signs and/or symptoms reported regarding the musculoskeletal system. 20:00 Reassessment: Patient appears in no apparent distress at this time. No changes from rr5 previously documented assessment. 22:00 Reassessment: Patient appears in no apparent distress at this time. Patient is alert, rr5 oriented x 3, equal unlabored respirations, skin warm/dry/pink. went to restroom calm cooperative, not aggressive assisted by the sitter. 05/20 00:00 Reassessment: Patient appears in no apparent distress at this time. No changes from rr5 previously documented assessment. 01:15 Reassessment: Patient appears in no apparent distress at this time. Patient and/or rr5 family updated on plan of care and expected duration. Pain level reassessed. went to restroom voided freely. 02:32 Reassessment: eyes closed breathing spontaneously at room. not in distress. rr5 04:30 Reassessment: Patient appears in no apparent distress at this time. No changes from rr5 previously documented assessment. 06:30 Reassessment: Patient appears in no apparent distress at this time. went to restroom rr5 calm, quiet, not aggressive. no complaints made. awaiting for mental facility acceptance. 07:30 Reassessment: Patient appears in no apparent distress at this time. Patient and/or hb family updated on plan of care and expected duration. Pain level reassessed. Sitter remains at bedside. 13:59 Reassessment: Patient appears in no apparent distress at this time. Patient is alert, mg2 oriented x 3, equal unlabored respirations, skin warm/dry/pink. sitter at bedside.. 14:54 Reassessment: patient complained of itchiness in the left upper thigh. provider mg2 informed and ordered medicine. 16:56 Reassessment: Patient appears in no apparent distress at this time. Patient is alert, mg2 oriented x 3, equal unlabored respirations, skin warm/dry/pink. 18:37 Reassessment: patient complained of itchiness again in the same area. provider informed mg2 and ordered medicine. 19:17 Reassessment: Patient appears in no apparent distress at this time. patient sleeping on mg2 bed. sitter at the bedside. 20:00 Reassessment: Patient appears in no apparent distress at this time. Patient is alert, mg2 oriented x 3, equal unlabored respirations, skin warm/dry/pink. sitter at bedside. meal served. 21:00 Reassessment: Patient appears in no apparent distress at this time. patient sleeping on mg2 bed. 23:30 Reassessment: Patient appears in no apparent distress at this time. sitter at bedside. mg2 05/21 01:39 Reassessment: Patient appears in no apparent distress at this time. sitter at bedside. mg2 07:10 Reassessment: sitter at bedside. em 07:30 General: Appears in no apparent distress. comfortable, Behavior is calm, cooperative, em Denies SI/HI at this time. Neuro: Level of Consciousness is awake, alert, obeys commands, Oriented to person, place, time, situation. Cardiovascular: Capillary refill < 3 seconds Patient's skin is warm and dry. Respiratory: Airway is patent Respiratory effort is even, unlabored, Respiratory pattern is regular, symmetrical. Derm: Skin is intact, is healthy with good turgor, Skin is pink, warm \T\ dry. Reports itching. Musculoskeletal: Capillary refill < 3 seconds, Range of motion: intact in all extremities. 07:30 Reassessment: I agree with assessment completed by Guevara Saini LVN . aa5 09:30 Reassessment: Patient appears in no apparent distress at this time. Patient and/or em family updated on plan of care and expected duration. Pain level reassessed. Patient is alert, oriented x 3, equal unlabored respirations, skin warm/dry/pink. 11:30 Reassessment: Patient appears in no apparent distress at this time. Patient and/or em family updated on plan of care and expected duration. Pain level reassessed. Patient is alert, oriented x 3, equal unlabored respirations, skin warm/dry/pink. 13:00 Reassessment: Patient appears in no apparent distress at this time. Patient and/or em family updated on plan of care and expected duration. Pain level reassessed. Patient is alert, oriented x 3, equal unlabored respirations, skin warm/dry/pink. 14:03 Reassessment: Patient appears in no apparent distress at this time. showered and given em new gown, pt reports feeling better, pending placement, sitter at bedside. 16:00 Reassessment: Patient appears in no apparent distress at this time. Patient and/or em family updated on plan of care and expected duration. Pain level reassessed. Patient is alert, oriented x 3, equal unlabored respirations, skin warm/dry/pink. 18:40 Reassessment: Patient appears in no apparent distress at this time. Patient and/or em family updated on plan of care and expected duration. Pain level reassessed. Patient is alert, oriented x 3, equal unlabored respirations, skin warm/dry/pink. dinner tray given, request Atarax for itching, provider notified. 05/22 07:15 Reassessment: Patient appears in no apparent distress at this time. Patient and/or em family updated on plan of care and expected duration. Pain level reassessed. Patient is alert, oriented x 3, equal unlabored respirations, skin warm/dry/pink. 09:00 Reassessment: Patient appears in no apparent distress at this time. Patient and/or em family updated on plan of care and expected duration. Pain level reassessed. Patient is alert, oriented x 3, equal unlabored respirations, skin warm/dry/pink. 11:00 Reassessment: Patient appears in no apparent distress at this time. Patient and/or em family updated on plan of care and expected duration. Pain level reassessed. Patient is alert, oriented x 3, equal unlabored respirations, skin warm/dry/pink. 12:33 Reassessment: [facility] case hardener at bedside. em Psych: 05/19 12:30 Subjective: Patient's mood is sad, Delusions are denied, Hallucinations are auditory, jl7 Having thoughts of suicide. Denies suicidal plan. Objective: Patient is cooperative, using poor eye contact, Speech is soft. Interventions: Removed personal items and placed in bag. Patient placed in hospital gown. Searched person for dangerous items. Urine collected and sent for urine drug test. Belonging list filled out. Suicide Risk Assessment: Sad Person Scale: Sex of patient: Female: Score 0 points. Age of patient: Score 0 point if patient falls outside of specified age parameters. Depression: Score 1 point if signs of depression are present. Previous Attempt: Score 1 point if patient has previously attempted suicide. Substance Abuse: Score 1 point if patient abuses alcohol or drugs. Rational Thinking: Score 0 point if patient has rational thinking. Social Support: Score 0 if social support is present/available. Organized Plan: Score 0 if patient did not have an organized plan in place. Relationship: Score 0 point if patient has a spouse or domestic partner. Chronic Sickness: Score 0 point if patient does not have a chronic illness, debilitating, or severe disorder. TOTAL POINTS: If total points are 3-4, proposed clinical action is close follow-up/consider hospitalization. Safety Checks: Personal items have been removed. Door is open. No visitors are present at this time. Patient uses marijuana Last use was 2 days ago. Patient uses methamphetamines Last use was 2 days ago. Patient uses tobacco 1 pack Frequency daily. 05/21 19:00 Safety Checks: Personal items have been removed. Door is open. No visitors are present fs at this time. 19:15 Safety Checks: Personal items have been removed. Door is open. No visitors are present fs at this time. 19:30 Safety Checks: Personal items have been removed. Door is open. No visitors are present fs at this time. 19:45 Safety Checks: Personal items have been removed. Door is open. No visitors are present fs at this time. 20:00 Safety Checks: Personal items have been removed. Door is open. No visitors are present fs at this time. 20:15 Safety Checks: Personal items have been removed. Door is open. No visitors are present fs at this time. 20:30 Safety Checks: Personal items have been removed. Door is open. No visitors are present fs at this time. 20:45 Safety Checks: Personal items have been removed. Door is open. No visitors are present fs at this time. 21:00 Safety Checks: Personal items have been removed. Door is open. No visitors are present fs at this time. 21:15 Safety Checks: Personal items have been removed. Door is open. No visitors are present fs at this time. 21:30 Safety Checks: Personal items have been removed. Door is open. No visitors are present fs at this time. 21:45 Safety Checks: Personal items have been removed. Door is open. No visitors are present fs at this time. 22:00 Safety Checks: Personal items have been removed. Door is open. No visitors are present fs at this time. 22:15 Safety Checks: Personal items have been removed. Door is open. No visitors are present fs at this time. 22:30 Safety Checks: Personal items have been removed. Door is open. No visitors are present fs at this time. 22:45 Safety Checks: Personal items have been removed. Door is open. No visitors are present fs at this time. 23:00 Safety Checks: Personal items have been removed. Door is open. No visitors are present fs at this time. 23:15 Safety Checks: Personal items have been removed. Door is open. No visitors are present fs at this time. 23:30 Safety Checks: Personal items have been removed. Door is open. No visitors are present fs at this time. 23:45 Safety Checks: Personal items have been removed. Door is open. No visitors are present fs at this time. 05/22 00:00 Safety Checks: Personal items have been removed. Door is open. No visitors are present fs at this time. 00:15 Safety Checks: Personal items have been removed. Door is open. No visitors are present fs at this time. 00:30 Safety Checks: Personal items have been removed. Door is open. No visitors are present fs at this time. 00:45 Safety Checks: Personal items have been removed. Door is open. No visitors are present fs at this time. 01:00 Safety Checks: Personal items have been removed. Door is open. No visitors are present fs at this time. 01:15 Safety Checks: Personal items have been removed. Door is open. No visitors are present fs at this time. 01:30 Safety Checks: Personal items have been removed. Door is open. No visitors are present fs at this time. 01:45 Safety Checks: Personal items have been removed. Door is open. No visitors are present fs at this time. 02:00 Safety Checks: Personal items have been removed. Door is open. No visitors are present fs at this time. 02:15 Safety Checks: Personal items have been removed. Door is open. No visitors are present fs at this time. 02:30 Safety Checks: Personal items have been removed. Door is open. No visitors are present fs at this time. 02:45 Safety Checks: Personal items have been removed. Door is open. No visitors are present fs at this time. 03:00 Safety Checks: Personal items have been removed. Door is open. No visitors are present fs at this time. 03:15 Safety Checks: Personal items have been removed. Door is open. No visitors are present fs at this time. 03:30 Safety Checks: Personal items have been removed. Door is open. No visitors are present fs at this time. 03:45 Safety Checks: Personal items have been removed. Door is open. No visitors are present fs at this time. 04:00 Safety Checks: Personal items have been removed. Door is open. No visitors are present fs at this time. 04:15 Safety Checks: Personal items have been removed. Door is open. No visitors are present fs at this time. 04:30 Safety Checks: Personal items have been removed. Door is open. No visitors are present fs at this time. 04:45 Safety Checks: Personal items have been removed. Door is open. No visitors are present fs at this time. 05:00 Safety Checks: Personal items have been removed. Door is open. No visitors are present fs at this time. 05:15 Safety Checks: Personal items have been removed. Door is open. No visitors are present fs at this time. 05:30 Safety Checks: Personal items have been removed. Door is open. No visitors are present fs at this time. 05:45 Safety Checks: Personal items have been removed. Door is open. No visitors are present fs at this time. 06:00 Safety Checks: Personal items have been removed. Door is open. No visitors are present fs at this time. 06:15 Safety Checks: Personal items have been removed. Door is open. No visitors are present fs at this time. 06:30 Safety Checks: Personal items have been removed. Door is open. No visitors are present fs at this time. 06:45 Safety Checks: Personal items have been removed. Door is open. No visitors are present fs at this time. 07:00 Safety Checks: Personal items have been removed. Door is open. No visitors are present fs at this time. Vital Signs: 05/19 12:25 BP 146 / 97; Pulse 70; Resp 15; Temp 98.0(O); Pulse Ox 99% on R/A; Weight 54.43 kg; dh3 Height 5 ft. 3 in. (160.02 cm); Pain 0/10; 17:00 BP 106 / 61; Pulse 70; Resp 16; Temp 97.6(TE); Pulse Ox 97% on R/A; dh3 21:00 BP 122 / 75; Pulse 66; Resp 16; Pulse Ox 99% on R/A; mw2 10 01:00 BP 122 / 75; Pulse 70; Resp 16; Pulse Ox 100% on R/A; mw2 05:40 BP 120 / 70; Pulse 68; Resp 18; Pulse Ox 99% on R/A; mw2 09:06 BP 118 / 68; Pulse 70; Resp 16; Temp 97.8(O); Pulse Ox 99% on R/A; mh5 12:48 BP 108 / 68; Pulse 68; Resp 17; Temp 98.0(O); Pulse Ox 99% on R/A; mh5 16:40 BP 116 / 62; Pulse 68; Resp 17; Temp 97.6(O); Pulse Ox 99% on R/A; mh5 20:55 BP 120 / 84; Pulse 79; Resp 18; Temp 97.4(O); Pulse Ox 99% on R/A; ar5 10 03:09 BP 117 / 67; Pulse 69; Resp 16; Temp 98.5(O); Pulse Ox 99% on R/A; ar5 07:50 BP 116 / 82; Pulse 79; Resp 16; Temp 98.2(O); Pulse Ox 100% ; dh3 12:01 BP 117 / 83; Pulse 70; Resp 16; Temp 98.1(O); Pulse Ox 100% on R/A; dh3 16:04 BP 118 / 81; Pulse 71; Resp 16; Pulse Ox 100% on R/A; dh3 20:00 BP 109 / 61; Pulse 70; Resp 18; Temp 98.5; Pulse Ox 98% ; fs 10 00:16 BP 112 / 74; Pulse 67; Resp 16; Pulse Ox 98% on R/A; mt 04:34 BP 104 / 72; Pulse 77; Resp 16; Temp 98.1; Pulse Ox 98% ; fs 08:07 BP 127 / 78; Pulse 70; Resp 18; Temp 98.5; Pulse Ox 97% ; jd2 12:52 BP 134 / 70; Pulse 85; Resp 20; Temp 98; Pulse Ox 98% on R/A; jd2 05/19 12:25 Body Mass Index 21.26 (54.43 kg, 160.02 cm) 3 ED Course: 05/19 12:22 Patient arrived in ED. bd 12:25 Arm band placed on left wrist. ss 12:25 Safety checks: Items removed: yes. Door open/sign placed on door: yes. Family/friend dh3 present: no. Sitter present: Yes. 12:25 Patient has correct armband on for positive identification. Placed in gown. Bed in low jl7 position. Call light in reach. Side rails up X 1. Sitter at bedside. Warm blanket given. 12:25 Urine collected: clean catch specimen, clear. dh3 12:26 Asia Ramos FNP-C is PHCP. kb 12:26 Wilbert Selby MD is Attending Physician. kb 12:30 Triage completed. ss 12:30 Safety checks: Items removed: yes. Door open/sign placed on door: yes. Family/friend dh3 present: no. Sitter present: Yes. 12:32 Initial lab(s) drawn, by me, sent to lab. Inserted saline lock: 22 gauge in right [facility] antecubital area, using aseptic technique. Blood collected. 12:35 Mariola Rubalcava, RN is Primary Nurse. jl7 12:40 Diet: Patient given snack. Patient given juice. Patient given water. 3 12:45 Safety checks: Items removed: yes. Door open/sign placed on door: yes. Family/friend dh3 present: no. Sitter present: Yes. 13:00 Safety checks: Items removed: yes. Door open/sign placed on door: yes. Family/friend dh3 present: no. Sitter present: Yes. 13:07 EKG done, by nursery technician. reviewed by Wilbert Selby MD. 3 13:15 Safety checks: Items removed: yes. Door open/sign placed on door: yes. Family/friend dh3 present: no. Sitter present: Yes. 13:30 Safety checks: Items removed: yes. Door open/sign placed on door: yes. Family/friend dh3 present: no. Sitter present: Yes. 13:36 contacted [facility], screener will come out to evaluate pt. bd 13:37 faxed chart to [facility], (hospital is on diversion, per mental health deputy ( jeana pereira vandergrift but pt is on waiting list) faxed chart to chanda salgado,. 13:40 Diet: Patient given a regular meal tray. dh3 13:45 Safety checks: Items removed: yes. Door open/sign placed on door: yes. Family/friend jp3 present: no. Sitter present: Yes. 14:00 Safety checks: Items removed: yes. Door open/sign placed on door: yes. Family/friend jp3 present: no. Sitter present: Yes. 14:15 Safety checks: Items removed: yes. Door open/sign placed on door: yes. Family/friend jp3 present: no. Sitter present: Yes. 14:30 Safety checks: Items removed: yes. Door open/sign placed on door: yes. Family/friend dh3 present: no. Sitter present: Yes. 14:45 Safety checks: Items removed: yes. Door open/sign placed on door: yes. Family/friend dh3 present: no. Sitter present: Yes. 14:48 screener from [facility] arrived to evaluate pt. bd 15:00 Safety checks: Items removed: yes. Door open/sign placed on door: yes. Family/friend dh3 present: no. Sitter present: Yes. 15:04 refaxed chart to [facility]. bd 15:15 Safety checks: Items removed: yes. Door open/sign placed on door: yes. Family/friend dh3 present: no. Sitter present: Yes. 15:24 talked to [facility], chart was received, no beds at this time, pt is on waiting bd list. 15:30 Safety checks: Items removed: yes. Door open/sign placed on door: yes. Family/friend dh3 present: no. Sitter present: Yes. 15:45 Safety checks: Items removed: yes. Door open/sign placed on door: yes. Family/friend dh3 present: no. Sitter present: Yes. 16:00 Safety checks: Items removed: yes. Door open/sign placed on door: yes. Family/friend dh3 present: no. Sitter present: Yes. 16:15 Safety checks: Items removed: yes. Door open/sign placed on door: yes. Family/friend dh3 present: no. Sitter present: Yes. 16:30 Safety checks: Items removed: yes. Door open/sign placed on door: yes. Family/friend dh3 present: no. Sitter present: Yes. 16:45 Safety checks: Items removed: yes. Door open/sign placed on door: yes. Family/friend dh3 present: no. Sitter present: Yes. 17:00 Safety checks: Items removed: yes. Door open/sign placed on door: yes. Family/friend dh3 present: no. Sitter present: Yes. 17:15 Safety checks: Items removed: yes. Door open/sign placed on door: yes. Family/friend dh3 present: no. Sitter present: Yes. 17:20 Diet: Patient given a regular meal tray. dh3 17:30 Safety checks: Items removed: yes. Door open/sign placed on door: yes. Family/friend dh3 present: no. Sitter present: Yes. 17:45 Safety checks: Items removed: yes. Door open/sign placed on door: yes. Family/friend dh3 present: no. Sitter present: Yes. 18:00 Safety checks: Items removed: yes. Door open/sign placed on door: yes. Family/friend dh3 present: no. Sitter present: Yes. 18:15 Safety checks: Items removed: yes. Door open/sign placed on door: yes. Family/friend dh3 present: no. Sitter present: Yes. 18:30 Safety checks: Items removed: yes. Door open/sign placed on door: yes. Family/friend dh3 present: no. Sitter present: Yes. 18:41 PHCP role handed off by Asia Ramos FNP-C sn 18:41 Trish Lobato FNP-C is PHCP. formerly [facility] 18:45 Safety checks: Items removed: yes. Door open/sign placed on door: yes. Family/friend dh3 present: no. Sitter present: Yes. 19:00 Safety checks: Items removed: yes. Door open/sign placed on door: yes. Family/friend dh3 present: no. Sitter present: Yes. 19:15 Safety checks: Items removed: yes. Door open/sign placed on door: yes. Family/friend mw2 present: no. Sitter present: Yes. 19:30 Safety checks: Items removed: yes. Door open/sign placed on door: yes. Family/friend mw2 present: no. Sitter present: Yes. 19:45 Safety checks: Items removed: yes. Door open/sign placed on door: yes. Family/friend mw2 present: no. Sitter present: Yes. 20:00 Safety checks: Items removed: yes. Door open/sign placed on door: yes. Family/friend mw2 present: no. Sitter present: Yes. 20:15 Safety checks: Items removed: yes. Door open/sign placed on door: yes. Family/friend mw2 present: no. Sitter present: Yes. 20:30 Safety checks: Items removed: yes. Door open/sign placed on door: yes. Family/friend mw2 present: no. Sitter present: Yes. 20:45 Safety checks: Items removed: yes. Door open/sign placed on door: yes. Family/friend mw2 present: no. Sitter present: Yes. 21:00 Safety checks: Items removed: yes. Door open/sign placed on door: yes. Family/friend mw2 present: no. Sitter present: Yes. 21:06 Diet: Patient given juice. mw2 21:15 Safety checks: Items removed: yes. Door open/sign placed on door: yes. Family/friend mw2 present: no. Sitter present: Yes. 21:30 Safety checks: Items removed: yes. Door open/sign placed on door: yes. Family/friend mw2 present: no. Sitter present: Yes. 21:45 Safety checks: Items removed: yes. Door open/sign placed on door: yes. Family/friend mw2 present: no. Sitter present: Yes. 22:00 Safety checks: Items removed: yes. Door open/sign placed on door: yes. Family/friend mw2 present: no. Sitter present: Yes. 22:15 Safety checks: Items removed: yes. Door open/sign placed on door: yes. Family/friend mw2 present: no. Sitter present: Yes. 22:30 Safety checks: Items removed: yes. Door open/sign placed on door: yes. Family/friend mw2 present: no. Sitter present: Yes. 22:45 Safety checks: Items removed: yes. Door open/sign placed on door: yes. Family/friend mw2 present: no. Sitter present: Yes. 23:00 Safety checks: Items removed: yes. Door open/sign placed on door: yes. Family/friend mw2 present: no. Sitter present: Yes. 23:15 Safety checks: Items removed: yes. Door open/sign placed on door: yes. Family/friend mw2 present: no. Sitter present: Yes. 23:30 Safety checks: Items removed: yes. Door open/sign placed on door: yes. Family/friend mw2 present: no. Sitter present: Yes. 23:45 Safety checks: Items removed: yes. Door open/sign placed on door: yes. Family/friend mw2 present: no. Sitter present: Yes. 05/20 00:00 Safety checks: Items removed: yes. Door open/sign placed on door: yes. Family/friend mw2 present: no. Sitter present: Yes. 00:00 Safety checks: Items removed: yes. Door open/sign placed on door: yes. Family/friend ar5 present: no. Sitter present: Yes. 00:15 Safety checks: Items removed: yes. Door open/sign placed on door: yes. Family/friend mw2 present: no. Sitter present: Yes. 00:30 Safety checks: Items removed: yes. Door open/sign placed on door: yes. Family/friend mw2 present: no. Sitter present: Yes. 00:45 Safety checks: Items removed: yes. Door open/sign placed on door: yes. Family/friend mw2 present: no. Sitter present: Yes. 01:00 Safety checks: Items removed: yes. Door open/sign placed on door: yes. Family/friend mw2 present: no. Sitter present: Yes. 01:15 Safety checks: Items removed: yes. Door open/sign placed on door: yes. Family/friend mw2 present: no. Sitter present: Yes. 01:18 Diet: pt given sandwhich and chips with a soda.. mw2 01:30 Safety checks: Items removed: yes. Door open/sign placed on door: yes. Family/friend mw2 present: no. Sitter present: Yes. 01:45 Safety checks: Items removed: yes. Door open/sign placed on door: yes. Family/friend mw2 present: no. Sitter present: Yes. 02:00 Safety checks: Items removed: yes. Door open/sign placed on door: yes. Family/friend mw2 present: no. Sitter present: Yes. 02:15 Safety checks: Items removed: yes. Door open/sign placed on door: yes. Family/friend mw2 present: no. Sitter present: Yes. 02:30 Safety checks: Items removed: yes. Door open/sign placed on door: yes. Family/friend mw2 present: no. Sitter present: Yes. 02:45 Safety checks: Items removed: yes. Door open/sign placed on door: yes. Family/friend mw2 present: no. Sitter present: Yes. 03:00 Safety checks: Items removed: yes. Door open/sign placed on door: yes. Family/friend mw2 present: no. Sitter present: Yes. 03:15 Safety checks: Items removed: yes. Door open/sign placed on door: yes. Family/friend mw2 present: no. Sitter present: Yes. 03:30 Safety checks: Items removed: yes. Door open/sign placed on door: yes. Family/friend mw2 present: no. Sitter present: Yes. 03:45 Safety checks: Items removed: yes. Door open/sign placed on door: yes. Family/friend mw2 present: no. Sitter present: Yes. 04:00 Safety checks: Items removed: yes. Door open/sign placed on door: yes. Family/friend mw2 present: no. Sitter present: Yes. 04:15 Safety checks: Items removed: yes. Door open/sign placed on door: yes. Family/friend mw2 present: no. Sitter present: Yes. 04:30 Safety checks: Items removed: yes. Door open/sign placed on door: yes. Family/friend mw2 present: no. Sitter present: Yes. 04:45 Safety checks: Items removed: yes. Door open/sign placed on door: yes. Family/friend mw2 present: no. Sitter present: Yes. 05:00 Safety checks: Items removed: yes. Door open/sign placed on door: yes. Family/friend mw2 present: no. Sitter present: Yes. 05:15 Safety checks: Items removed: yes. Door open/sign placed on door: yes. Family/friend mw2 present: no. Sitter present: Yes. 05:30 Safety checks: Items removed: yes. Door open/sign placed on door: yes. Family/friend mw2 present: no. Sitter present: Yes. 05:45 Safety checks: Items removed: yes. Door open/sign placed on door: yes. Family/friend mw2 present: no. Sitter present: Yes. 06:00 Safety checks: Items removed: yes. Door open/sign placed on door: yes. Family/friend mw2 present: no. Sitter present: Yes. 06:15 Safety checks: Items removed: yes. Door open/sign placed on door: yes. Family/friend mw2 present: no. Sitter present: Yes. 06:30 Safety checks: Items removed: yes. Door open/sign placed on door: yes. Family/friend mw2 present: no. Sitter present: Yes. 06:39 PHCP role handed off by Trish Lobato FNP-C kb 06:39 Asia Ramos FNP-C is PHCP. kb 06:45 Safety checks: Items removed: yes. Door open/sign placed on door: yes. Family/friend mw2 present: no. Sitter present: Yes. 06:48 Diet: Patient given juice. mw2 07:00 Safety checks: Items removed: yes. Door open/sign placed on door: yes. Family/friend mh5 present: no. Sitter present: Yes. 07:15 Safety checks: Items removed: yes. Door open/sign placed on door: yes. Family/friend mh5 present: no. Sitter present: Yes. 07:30 Safety checks: Items removed: yes. Door open/sign placed on door: yes. Family/friend mh5 present: no. Sitter present: Yes. 07:45 Safety checks: Items removed: yes. Door open/sign placed on door: yes. Family/friend mh5 present: no. Sitter present: Yes. 08:00 Safety checks: Items removed: yes. Door open/sign placed on door: yes. Family/friend mh5 present: no. Sitter present: Yes. 08:45 Diet: Patient given a regular meal tray. mh5 08:45 Safety checks: Items removed: yes. Door open/sign placed on door: yes. Family/friend mh5 present: no. Sitter present: Yes. 09:00 Safety checks: Items removed: yes. Door open/sign placed on door: yes. Family/friend mh5 present: no. Sitter present: Yes. 09:15 Safety checks: Items removed: yes. Door open/sign placed on door: yes. Family/friend mh5 present: no. Sitter present: Yes. 09:30 Safety checks: Items removed: yes. Door open/sign placed on door: yes. Family/friend mh5 present: no. Sitter present: Yes. 09:45 Safety checks: Items removed: yes. Door open/sign placed on door: yes. Family/friend mh5 present: no. Sitter present: Yes. 10:00 Safety checks: Items removed: yes. Door open/sign placed on door: yes. Family/friend mh5 present: no. Sitter present: Yes. 10:15 Safety checks: Items removed: yes. Door open/sign placed on door: yes. Family/friend mh5 present: no. Sitter present: Yes. 10:30 Safety checks: Items removed: yes. Door open/sign placed on door: yes. Family/friend mh5 present: no. Sitter present: Yes. 10:45 Safety checks: Items removed: yes. Door open/sign placed on door: yes. Family/friend mh5 present: no. Sitter present: Yes. 11:00 Safety checks: Items removed: yes. Door open/sign placed on door: yes. Family/friend mh5 present: no. Sitter present: Yes. 11:15 Safety checks: Items removed: yes. Door open/sign placed on door: yes. Family/friend mh5 present: no. Sitter present: Yes. 11:30 Safety checks: Items removed: yes. Door open/sign placed on door: yes. Family/friend mh5 present: no. Sitter present: Yes. 11:45 Safety checks: Items removed: yes. Door open/sign placed on door: yes. Family/friend mh5 present: no. Sitter present: Yes. 12:00 Safety checks: Items removed: yes. Door open/sign placed on door: yes. Family/friend mh5 present: no. Sitter present: Yes. 12:15 Safety checks: Items removed: yes. Door open/sign placed on door: yes. Family/friend mh5 present: no. Sitter present: Yes. 12:30 Safety checks: Items removed: yes. Door open/sign placed on door: yes. Family/friend mh5 present: no. Sitter present: Yes. 12:30 Diet: Patient given a regular meal tray. mh5 12:45 Safety checks: Items removed: yes. Door open/sign placed on door: yes. Family/friend mh5 present: no. Sitter present: Yes. 13:00 Safety checks: Items removed: yes. Door open/sign placed on door: yes. Family/friend mh5 present: yes. Sitter present: Yes. 13:15 Safety checks: Items removed: yes. Door open/sign placed on door: yes. Family/friend mh5 present: no. Sitter present: Yes. 13:30 Safety checks: Items removed: yes. Door open/sign placed on door: yes. Family/friend mh5 present: no. 13:45 Safety checks: Items removed: yes. Door open/sign placed on door: yes. Family/friend mh5 present: no. Sitter present: Yes. 14:00 Safety checks: Items removed: yes. Door open/sign placed on door: yes. Family/friend mh5 present: no. Sitter present: Yes. 14:15 Safety checks: Items removed: yes. Door open/sign placed on door: yes. Family/friend mh5 present: no. Sitter present: Yes. 14:30 Safety checks: Items removed: yes. Door open/sign placed on door: yes. Family/friend mh5 present: no. Sitter present: Yes. Diet: Patient given juice. 14:45 Safety checks: Items removed: yes. Door open/sign placed on door: yes. Family/friend mh5 present: no. Sitter present: Yes. 14:55 Patient did not have IV access during this emergency room visit. Pressure dressing mh5 applied. 15:00 Safety checks: Items removed: yes. Door open/sign placed on door: yes. Family/friend mh5 present: no. Sitter present: Yes. 15:15 Safety checks: Items removed: yes. Door open/sign placed on door: yes. Family/friend mh5 present: no. Sitter present: Yes. 15:30 Safety checks: Items removed: yes. Door open/sign placed on door: yes. Family/friend mh5 present: no. Sitter present: Yes. 15:45 Safety checks: Items removed: yes. Door open/sign placed on door: yes. Family/friend mh5 present: no. Sitter present: Yes. 16:00 Safety checks: Items removed: yes. Door open/sign placed on door: yes. Family/friend mh5 present: no. Sitter present: Yes. 16:15 Safety checks: Items removed: yes. Door open/sign placed on door: yes. Family/friend mh5 present: no. Sitter present: Yes. 16:30 Safety checks: Items removed: yes. Door open/sign placed on door: yes. Family/friend mh5 present: no. Sitter present: Yes. 16:30 Diet: Patient given snack. 5 16:45 Safety checks: Items removed: yes. Door open/sign placed on door: yes. Family/friend mh5 present: no. Sitter present: Yes. 17:00 PHCP role handed off by Asia Ramos FNP-C 17:00 Wilbert Shea PA is PHCP. 17:00 Safety checks: Items removed: yes. Door open/sign placed on door: yes. Family/friend mh5 present: no. Sitter present: Yes. 17:15 Safety checks: Items removed: yes. Door open/sign placed on door: yes. Family/friend mh5 present: no. Sitter present: Yes. 17:30 Safety checks: Items removed: yes. Door open/sign placed on door: yes. Family/friend mh5 present: no. Sitter present: Yes. 17:30 Diet: Patient given a regular meal tray. [facility] 17:45 Safety checks: Items removed: yes. Door open/sign placed on door: yes. Family/friend mh5 present: no. Sitter present: Yes. 18:00 Safety checks: Items removed: yes. Door open/sign placed on door: yes. Family/friend mh5 present: no. Sitter present: Yes. 18:14 Diet: Patient given snack. Patient given juice. Patient given water. 5 18:15 Safety checks: Items removed: yes. Door open/sign placed on door: yes. Family/friend mh5 present: no. Sitter present: Yes. 18:30 Safety checks: Items removed: yes. Door open/sign placed on door: yes. Family/friend mh5 present: no. Sitter present: Yes. 18:45 Safety checks: Items removed: yes. Door open/sign placed on door: yes. Family/friend mh5 present: no. Sitter present: Yes. 19:00 Safety checks: Items removed: yes. Door open/sign placed on door: yes. Family/friend ar5 present: no. Sitter present: Yes. 19:15 Safety checks: Items removed: yes. Door open/sign placed on door: yes. Family/friend ar5 present: no. Sitter present: Yes. 19:17 No provider procedures requiring assistance completed. mg2 19:30 Safety checks: Items removed: yes. Door open/sign placed on door: yes. Family/friend ar5 present: no. Sitter present: Yes. 19:45 Safety checks: Items removed: yes. Door open/sign placed on door: yes. Family/friend ar5 present: no. Sitter present: Yes. 20:00 Safety checks: Items removed: yes. Door open/sign placed on door: yes. Family/friend ar5 present: no. Sitter present: Yes. 20:15 Safety checks: Items removed: yes. Door open/sign placed on door: yes. Family/friend ar5 present: no. Sitter present: Yes. 20:30 Safety checks: Items removed: yes. Door open/sign placed on door: yes. Family/friend ar5 present: no. Sitter present: Yes. 20:45 Safety checks: Items removed: yes. Door open/sign placed on door: yes. Family/friend ar5 present: no. Sitter present: Yes. 21:00 Safety checks: Items removed: yes. Door open/sign placed on door: yes. Family/friend ar5 present: no. Sitter present: Yes. 21:15 Safety checks: Items removed: yes. Door open/sign placed on door: yes. Family/friend ar5 present: no. Sitter present: Yes. 21:30 Safety checks: Items removed: yes. Door open/sign placed on door: yes. Family/friend ar5 present: no. Sitter present: Yes. 21:45 Safety checks: Items removed: yes. Door open/sign placed on door: yes. Family/friend ar5 present: no. Sitter present: Yes. 22:00 Safety checks: Items removed: yes. Door open/sign placed on door: yes. Family/friend ar5 present: no. Sitter present: Yes. 22:15 Safety checks: Items removed: yes. Door open/sign placed on door: yes. Family/friend ar5 present: no. Sitter present: Yes. 22:30 Safety checks: Items removed: yes. Door open/sign placed on door: yes. Family/friend ar5 present: no. Sitter present: Yes. 22:45 Safety checks: Items removed: yes. Door open/sign placed on door: yes. Family/friend ar5 present: no. Sitter present: Yes. 23:00 Safety checks: Items removed: yes. Door open/sign placed on door: yes. Family/friend ar5 present: no. Sitter present: Yes. 23:15 Safety checks: Items removed: yes. Door open/sign placed on door: yes. Family/friend ar5 present: no. Sitter present: Yes. 23:30 Safety checks: Items removed: yes. Door open/sign placed on door: yes. Family/friend ar5 present: no. Sitter present: Yes. 23:45 Safety checks: Items removed: yes. Door open/sign placed on door: yes. Family/friend ar5 present: no. Sitter present: Yes. 05/21 00:15 Safety checks: Items removed: yes. Door open/sign placed on door: yes. Family/friend ar5 present: no. Sitter present: Yes. 00:30 Safety checks: Items removed: yes. Door open/sign placed on door: yes. Family/friend ar5 present: no. Sitter present: Yes. 00:45 Safety checks: Items removed: yes. Door open/sign placed on door: yes. Family/friend ar5 present: no. Sitter present: Yes. 01:00 Safety checks: Items removed: yes. Door open/sign placed on door: yes. Family/friend ar5 present: no. Sitter present: Yes. 01:15 Safety checks: Items removed: yes. Door open/sign placed on door: yes. Family/friend ar5 present: no. Sitter present: Yes. 01:30 Safety checks: Items removed: yes. Door open/sign placed on door: yes. Family/friend ar5 present: no. Sitter present: Yes. 01:45 Safety checks: Items removed: yes. Door open/sign placed on door: yes. Family/friend ar5 present: no. Sitter present: Yes. 02:00 Safety checks: Items removed: yes. Door open/sign placed on door: yes. Family/friend ar5 present: no. Sitter present: Yes. 02:15 Safety checks: Items removed: yes. Door open/sign placed on door: yes. Family/friend ar5 present: no. Sitter present: Yes. 02:30 Safety checks: Items removed: yes. Door open/sign placed on door: yes. Family/friend ar5 present: no. Sitter present: Yes. 02:45 Safety checks: Items removed: yes. Door open/sign placed on door: yes. Family/friend ar5 present: no. Sitter present: Yes. 03:00 Safety checks: Items removed: yes. Door open/sign placed on door: yes. Family/friend ar5 present: no. Sitter present: Yes. 03:15 Safety checks: Items removed: yes. Door open/sign placed on door: yes. Family/friend ar5 present: no. Sitter present: Yes. 03:30 Safety checks: Items removed: yes. Door open/sign placed on door: yes. Family/friend ar5 present: no. Sitter present: Yes. 03:45 Safety checks: Items removed: yes. Door open/sign placed on door: yes. Family/friend ar5 present: no. Sitter present: Yes. 04:00 Safety checks: Items removed: yes. Door open/sign placed on door: yes. Family/friend ar5 present: no. Sitter present: Yes. 04:15 Safety checks: Items removed: yes. Door open/sign placed on door: yes. Family/friend ar5 present: no. Sitter present: Yes. 04:30 Safety checks: Items removed: yes. Door open/sign placed on door: yes. Family/friend ar5 present: no. Sitter present: Yes. 04:45 Safety checks: Items removed: yes. Door open/sign placed on door: yes. Family/friend ar5 present: no. Sitter present: Yes. 05:00 Safety checks: Items removed: yes. Door open/sign placed on door: yes. Family/friend ar5 present: no. Sitter present: Yes. 05:15 Safety checks: Items removed: yes. Door open/sign placed on door: yes. Family/friend ar5 present: no. Sitter present: Yes. 05:30 Safety checks: Items removed: yes. Door open/sign placed on door: yes. Family/friend ar5 present: no. Sitter present: Yes. 05:45 Safety checks: Items removed: yes. Door open/sign placed on door: yes. Family/friend ar5 present: no. Sitter present: Yes. 06:00 Safety checks: Items removed: yes. Door open/sign placed on door: yes. Family/friend ar5 present: no. Sitter present: Yes. 06:15 Safety checks: Items removed: yes. Door open/sign placed on door: yes. Family/friend ar5 present: no. Sitter present: Yes. 06:30 Safety checks: Items removed: yes. Door open/sign placed on door: yes. Family/friend ar5 present: no. Sitter present: Yes. 07:00 Safety checks: Items removed: yes. Door open/sign placed on door: yes. Family/friend dh3 present: no. Sitter present: Yes. 07:15 Safety checks: Items removed: yes. Door open/sign placed on door: yes. Family/friend dh3 present: no. Sitter present: Yes. 07:30 Safety checks: Items removed: yes. Door open/sign placed on door: yes. Family/friend dh3 present: no. Sitter present: Yes. 07:45 Safety checks: Items removed: yes. Door open/sign placed on door: yes. Family/friend dh3 present: no. Sitter present: Yes. 08:00 Safety checks: Items removed: yes. Door open/sign placed on door: yes. Family/friend dh3 present: no. Sitter present: Yes. 08:06 Attending Physician role handed off by Wilbert Selby MD rn 08:06 Adalberto Slater MD is Attending Physician. rn 08:15 Safety checks: Items removed: yes. Door open/sign placed on door: yes. Family/friend dh3 present: no. Sitter present: Yes. 08:30 Safety checks: Items removed: yes. Door open/sign placed on door: yes. Family/friend dh3 present: no. Sitter present: Yes. 08:41 Diet: Patient given a regular meal tray. dh3 08:45 Safety checks: Items removed: yes. Door open/sign placed on door: yes. Family/friend dh3 present: no. Sitter present: Yes. 08:57 \[id number] called [facility] [phone]. patient is third on the wait list. gm 09:00 Safety checks: Items removed: yes. Door open/sign placed on door: yes. Family/friend dh3 present: no. Sitter present: Yes. 09:01 \T\[id number] called [facility] spoke with jatinder and she stated there was no bed for psych. 09:04 faxed to [facility], [facility], [facility], [facility]. \T\ 0907 on 05/21/19 GM. 09:15 Safety checks: Items removed: yes. Door open/sign placed on door: yes. Family/friend dh3 present: no. Sitter present: Yes. 09:30 Safety checks: Items removed: yes. Door open/sign placed on door: yes. Family/friend dh3 present: no. Sitter present: Yes. 09:45 Safety checks: Items removed: yes. Door open/sign placed on door: yes. Family/friend dh3 present: no. Sitter present: Yes. 10:00 \T\1000 trinity from [facility] [address] called and said they have to deny patient due to lack of capacity. 10:00 Safety checks: Items removed: yes. Door open/sign placed on door: yes. Family/friend dh3 present: no. Sitter present: Yes. 10:15 Safety checks: Items removed: yes. Door open/sign placed on door: yes. Family/friend dh3 present: no. Sitter present: Yes. 10:30 Safety checks: Items removed: yes. Door open/sign placed on door: yes. Family/friend dh3 present: no. Sitter present: Yes. 10:45 Safety checks: Items removed: yes. Door open/sign placed on door: yes. Family/friend dh3 present: no. Sitter present: Yes. 11:00 Safety checks: Items removed: yes. Door open/sign placed on door: yes. Family/friend ms present: no. Sitter present: Yes. 11:15 Safety checks: Items removed: yes. Door open/sign placed on door: yes. Family/friend dh3 present: no. Sitter present: Yes. 11:30 Safety checks: Items removed: yes. Door open/sign placed on door: yes. Family/friend dh3 present: no. Sitter present: Yes. 11:45 Safety checks: Items removed: yes. Door open/sign placed on door: yes. Family/friend dh3 present: no. Sitter present: Yes. 12:00 Safety checks: Items removed: yes. Door open/sign placed on door: yes. Family/friend dh3 present: no. Sitter present: Yes. 12:15 Safety checks: Items removed: yes. Door open/sign placed on door: yes. Family/friend dh3 present: no. Sitter present: Yes. 12:30 Safety checks: Items removed: yes. Door open/sign placed on door: yes. Family/friend dh3 present: no. Sitter present: Yes. 12:45 Safety checks: Items removed: yes. Door open/sign placed on door: yes. Family/friend dh3 present: no. Sitter present: Yes. 13:00 Safety checks: Items removed: yes. Door open/sign placed on door: yes. Family/friend dh3 present: no. Sitter present: Yes. 13:15 Safety checks: Items removed: yes. Door open/sign placed on door: yes. Family/friend dh3 present: no. Sitter present: Yes. 13:30 Safety checks: Items removed: yes. Door open/sign placed on door: yes. Family/friend dh3 present: no. Sitter present: Yes. 13:45 Safety checks: Items removed: yes. Door open/sign placed on door: yes. Family/friend dh3 present: no. Sitter present: Yes. 14:00 Oral care given. Shower given. dh3 14:00 Safety checks: Items removed: yes. Door open/sign placed on door: yes. Family/friend dh3 present: no. Sitter present: Yes. 14:15 Safety checks: Items removed: yes. Door open/sign placed on door: yes. Family/friend dh3 present: no. Sitter present: Yes. 14:30 Safety checks: Items removed: yes. Door open/sign placed on door: yes. Family/friend dh3 present: no. Sitter present: Yes. 14:45 Safety checks: Items removed: yes. Door open/sign placed on door: yes. Family/friend dh3 present: no. Sitter present: Yes. 15:00 Safety checks: Items removed: yes. Door open/sign placed on door: yes. Family/friend dh3 present: no. Sitter present: Yes. 15:15 Safety checks: Items removed: yes. Door open/sign placed on door: yes. Family/friend dh3 present: no. Sitter present: Yes. Diet: Patient given snack. 15:30 Safety checks: Items removed: yes. Door open/sign placed on door: yes. Family/friend dh3 present: no. Sitter present: Yes. 15:45 Safety checks: Items removed: yes. Door open/sign placed on door: yes. Family/friend dh3 present: no. Sitter present: Yes. 16:00 Safety checks: Items removed: yes. Door open/sign placed on door: yes. Family/friend dh3 present: no. Sitter present: Yes. 16:15 Safety checks: Items removed: yes. Door open/sign placed on door: yes. Family/friend dh3 present: no. Sitter present: Yes. 16:30 Safety checks: Items removed: yes. Door open/sign placed on door: yes. Family/friend dh3 present: no. Sitter present: Yes. 16:45 Safety checks: Items removed: yes. Door open/sign placed on door: yes. Family/friend dh3 present: no. Sitter present: Yes. 17:00 Safety checks: Items removed: yes. Door open/sign placed on door: yes. Family/friend dh3 present: no. Sitter present: Yes. 17:15 Safety checks: Items removed: yes. Door open/sign placed on door: yes. Family/friend dh3 present: no. Sitter present: Yes. 17:30 Safety checks: Items removed: yes. Door open/sign placed on door: yes. Family/friend dh3 present: no. Sitter present: Yes. 17:45 Safety checks: Items removed: yes. Door open/sign placed on door: yes. Family/friend dh3 present: no. Sitter present: Yes. 18:00 Safety checks: Items removed: yes. Door open/sign placed on door: yes. Family/friend dh3 present: no. Sitter present: Yes. 18:00 Diet: Patient given a regular meal tray. dh3 18:15 Safety checks: Items removed: yes. Door open/sign placed on door: yes. Family/friend dh3 present: no. Sitter present: Yes. 18:30 Safety checks: Items removed: yes. Door open/sign placed on door: yes. Family/friend dh3 present: no. Sitter present: Yes. 18:45 Safety checks: Items removed: yes. Door open/sign placed on door: yes. Family/friend dh3 present: no. Sitter present: Yes. 19:00 Safety Checks: Sitter present at this time. fs 19:00 Safety checks: Items removed: yes. Door open/sign placed on door: yes. Family/friend dh3 present: no. Sitter present: Yes. 19:15 Safety Checks: Sitter present at this time. fs 19:30 Safety Checks: Sitter present at this time. fs 19:45 Safety Checks: Sitter present at this time. fs 20:00 Safety Checks: Sitter present at this time. fs 20:15 Safety Checks: Sitter present at this time. fs 20:30 Safety Checks: Sitter present at this time. fs 20:37 Diet: Patient given snack. Patient given juice. fs 20:45 Safety Checks: Sitter present at this time. fs 21:00 Safety Checks: Sitter present at this time. fs 21:15 Safety Checks: Sitter present at this time. fs 21:30 Safety Checks: Sitter present at this time. fs 21:45 Safety Checks: Sitter present at this time. fs 22:00 Safety Checks: Sitter present at this time. fs 22:15 Safety Checks: Sitter present at this time. fs 22:30 Safety Checks: Sitter present at this time. fs 22:45 Safety Checks: Sitter present at this time. fs 23:00 Safety Checks: Sitter present at this time. fs 23:00 Appears to be sleeping. fs 23:15 Safety Checks: Sitter present at this time. fs 23:30 Safety Checks: Sitter present at this time. fs 23:45 Safety Checks: Sitter present at this time. fs 05/22 00:00 Safety Checks: Sitter present at this time. fs 00:00 Appears to be sleeping. fs 00:15 Safety Checks: Sitter present at this time. fs 00:15 Safety checks: Items removed: yes. Door open/sign placed on door: yes. Family/friend mt present: no. Sitter present: Yes. 00:30 Safety Checks: Sitter present at this time. fs 00:30 Safety checks: Items removed: yes. Door open/sign placed on door: yes. Family/friend mt present: no. Sitter present: Yes. 00:45 Safety Checks: Sitter present at this time. fs 00:45 Safety checks: Items removed: yes. Door open/sign placed on door: yes. Family/friend mt present: no. Sitter present: Yes. 01:00 Safety Checks: Sitter present at this time. fs 01:00 Appears to be sleeping. fs 01:15 Safety Checks: Sitter present at this time. fs 01:30 Safety Checks: Sitter present at this time. fs 01:45 Safety Checks: Sitter present at this time. fs 02:00 Appears to be sleeping. fs 02:00 Safety Checks: Sitter present at this time. fs 02:15 Safety Checks: Sitter present at this time. fs 02:30 Safety Checks: Sitter present at this time. fs 02:45 Safety Checks: Sitter present at this time. fs 03:00 Safety Checks: Sitter present at this time. fs 03:00 Appears to be sleeping. fs 03:15 Safety Checks: Sitter present at this time. fs 03:30 Safety Checks: Sitter present at this time. fs 03:45 Safety Checks: Sitter present at this time. fs 04:00 Appears to be sleeping. fs 04:00 Safety Checks: Sitter present at this time. fs 04:15 Safety Checks: Sitter present at this time. fs 04:30 Safety Checks: Sitter present at this time. fs 04:45 Safety Checks: Sitter present at this time. fs 04:45 Diet: Patient given snack. Patient given juice. fs 05:00 Safety Checks: Sitter present at this time. fs 05:15 Safety Checks: Sitter present at this time. fs 05:15 Appears to be sleeping. fs 05:30 Safety Checks: Sitter present at this time. fs 05:45 Safety Checks: Sitter present at this time. fs 06:00 Safety Checks: Sitter present at this time. fs 06:00 Appears to be sleeping. fs 06:15 Safety Checks: Sitter present at this time. fs 06:30 Safety Checks: Sitter present at this time. fs 06:45 Safety Checks: Sitter present at this time. fs 07:00 Safety Checks: Sitter present at this time. fs 07:15 Safety checks: Items removed: yes. Door open/sign placed on door: yes. Family/friend jd2 present: no. Sitter present: Yes. 07:30 Safety checks: Items removed: yes. Door open/sign placed on door: yes. Family/friend jd2 present: no. Sitter present: Yes. 07:45 Safety checks: Items removed: yes. Door open/sign placed on door: yes. Family/friend jd2 present: no. Sitter present: Yes. 08:00 Safety checks: Items removed: yes. Door open/sign placed on door: yes. Family/friend jd2 present: no. Sitter present: Yes. 08:15 Safety checks: Items removed: yes. Door open/sign placed on door: yes. Family/friend jd2 present: no. Sitter present: Yes. 08:28 Patient up to restroom coffee,juice and water given breakfast tray ordered. jd2 08:30 Safety checks: Items removed: yes. Door open/sign placed on door: yes. Family/friend jd2 present: no. Sitter present: Yes. 08:45 Safety checks: Items removed: yes. Door open/sign placed on door: yes. Family/friend jd2 present: no. Sitter present: Yes. 09:00 Safety checks: Items removed: yes. Door open/sign placed on door: yes. Family/friend jd2 present: no. Sitter present: Yes. 09:15 Safety checks: Items removed: yes. Door open/sign placed on door: yes. Family/friend jd2 present: yes. Sitter present: Yes. 09:30 Safety checks: Items removed: yes. Door open/sign placed on door: yes. Family/friend jd2 present: no. Sitter present: Yes. 09:45 Safety checks: Items removed: yes. Door open/sign placed on door: yes. Family/friend jd2 present: no. Sitter present: Yes. 10:00 Safety checks: Items removed: yes. Door open/sign placed on door: yes. Family/friend jd2 present: no. Sitter present: Yes. 10:15 Safety checks: Items removed: yes. Door open/sign placed on door: yes. Family/friend jd2 present: no. Sitter present: Yes. 10:30 Safety checks: Items removed: yes. Door open/sign placed on door: yes. Family/friend jd2 present: no. Sitter present: Yes. 10:37 called [facility] at 1033. spoke with Yusef. let her know provider wants patient to be gm re evaluation. 10:45 Safety checks: Items removed: yes. Door open/sign placed on door: yes. Family/friend jd2 present: no. Sitter present: Yes. 11:00 Safety checks: Items removed: yes. Door open/sign placed on door: yes. Family/friend jd2 present: no. Sitter present: Yes. 11:15 Safety checks: Items removed: yes. Door open/sign placed on door: yes. Family/friend jd2 present: no. Sitter present: Yes. 11:30 Safety checks: Items removed: yes. Door open/sign placed on door: yes. Family/friend jd2 present: no. Sitter present: Yes. 11:45 Safety checks: Items removed: yes. Door open/sign placed on door: yes. Family/friend jd2 present: no. Sitter present: Yes. 12:00 Patient and I went outside looking for something to smoke, I told her this is a smoke jd2 free campus, she felt better just by getting some fresh air. 12:15 Patient is making phone calls to her family states she's ready to leave this place she jd2 has been here to long. 12:30 [facility] phone representative here to re evaluate patient. jd2 12:45 Safety checks: Items removed: yes. Door open/sign placed on door: yes. Family/friend jd2 present: no. Sitter present: Yes. 13:00 Safety checks: Items removed: yes. Door open/sign placed on door: yes. Family/friend jd2 present: no. Sitter present: Yes. 13:15 Safety checks: Items removed: yes. Door open/sign placed on door: yes. Family/friend jd2 present: no. Sitter present: Yes. 13:40 IV discontinued, intact, bleeding controlled, No redness/swelling at site. Pressure em dressing applied. Administered Medications: 05/20 14:51 Drug: Benadryl 25 mg Route: PO; mg2 15:30 Follow up: Response: No adverse reaction; Marked relief of symptoms mg2 18:37 Drug: Atarax 25 mg Route: PO; mg2 05/21 08:06 Follow up: Response: No adverse reaction em 12:34 Drug: Atarax 25 mg Route: PO; em 13:30 Follow up: Response: No adverse reaction em 21:04 Drug: Atarax 25 mg Route: PO; ea 05/22 09:06 Follow up: Response: No adverse reaction em 09:44 Drug: Atarax 25 mg Route: PO; em 12:35 Follow up: Response: No adverse reaction; Marked relief of symptoms em Outcome: 05/19 17:33 ER care complete, transfer ordered by . jay 05/22 13:22 Discharge ordered by MD. rn 13:37 Discharged to home ambulatory, with friend. em 13:37 Condition: stable 13:37 Discharge instructions given to patient, Instructed on discharge instructions, follow up and referral plans. Demonstrated understanding of instructions, follow-up care. 13:41 Patient left the ED. em Signatures: Asia Ramos, COMMUNITY MARKETING MANAGER-C COMMUNITY MARKETING MANAGER-CkMary Hill Corey, MD MD cha Therrien, Shelly, COMMUNITY MARKETING MANAGER-C COMMUNITY MARKETING MANAGER-Csnw Guevara Saini, WOOD FURNITURE ASSEMBLER WOOD FURNITURE ASSEMBLER [place] Ambrocio ms, Roman, MD MD rn Calderon, Audri RN PUMA aa5 Andria Castillo RN Wilbert Burks PA PA cp Baxter, Heather RN Citlali Del Angel Maria Mariola Gomez RN RN jl7 Yani Riggins mt, Deanna 3 Shellie Valladares RN RN ea Hugo Lion 2 Wesley Heaton RN RN mg2 Angelica Douglass 3 Alex Ocampo 3 Chase Mendez RN RN rr5 Yulissa Velazquez gm, Autumn ny5 Mora García Corrections: (The following items were deleted from the chart) 05/19 15:26 12:30 Subjective: Patient's mood is sad, Delusions are denied, Hallucinations are jl7 denied Having thoughts of suicide. Denies suicidal plan. jl7 17:23 12:25 BP 146 / 97; Pulse 70bpm; Resp 15bpm; Pulse Ox 99% RA; 54.43 kg; Height 5 ft. 3 [facility] in.; BMI: 21.2; Pain 0/10; ss 17:23 17:00 BP 106 / 61; Pulse 70bpm; Resp 16bpm; Pulse Ox 97% RA; 3 3 21:05 20:58 BP 122 / 75; Pulse 66bpm; Resp 16bpm; Pulse Ox 99% RA; mw2 mw2 10 05:32 05:31 Safety checks: Items removed: yes. Door open/sign placed on door: yes. ar5 Family/friend present: no. Sitter present: Yes. [facility] 14:03 13:34 Safety checks: Items removed: yes. Door open/sign placed on door: yes. 3 Family/friend present: no. Sitter present: Yes. [facility] 14:06 14:02 Safety checks: Items removed: yes. Door open/sign placed on door: yes. 3 Family/friend present: no. Sitter present: Yes. [facility] 05/22 00:50 00:30 Safety checks: Items removed: yes. Door open/sign placed on door: yes. mt Family/friend present: no. Sitter present: Yes. mt
--- NOTE | 2019-05-19 17:34 | EDPHYS ---
Physician Documentation [facility] Name: Iliana Tolentino Age: 39 yrs Sex: Female : 1980 Arrival Date: 05/19/2019 Time: 12:22 Bed 17 Private MD: ED Physician Adalberto Slater HPI: 05/19 14:31 This 39 yrs old Female presents to ER via [employer] with complaints of kb Suicidal Ideation. 14:31 The patient presents to the emergency department with suicide ideation, but the patient kb has no formulated plan. Onset: The symptoms/episode began/occurred today. Past psychiatric history: Prior diagnosis: bipolar disorder. Associated signs and symptoms: Pertinent positives; substance abuse, suicide ideation. Severity of symptoms: At their worst the symptoms were moderate in the emergency department the symptoms are unchanged. The patient has experienced similar episodes in the past. The patient has not recently seen a physician. Pt reports she was at a drug rehab and told them she had thoughts of harming herself. Reports she is coming off of meth and thinks that is why she is having the feelings. Has tried to hang herself before and it a recreational cutter. . Historical: - Allergies: 12:32 No Known Allergies; ss - PMHx: 12:32 Bipolar disorder; Ovarian cyst; ss - Immunization history:: Adult Immunizations unknown. - Social history:: Smoking status: Patient uses tobacco products, smokes one pack cigarettes per day. Patient uses street drugs, marijuana, Methamphetamine (Meth) admits to abuses Suboxone . - Ebola Screening: : Patient denies exposure to infectious person Patient denies travel to an Ebola-affected area in the 21 days before illness onset. ROS: 14:30 Constitutional: Negative for fever, chills, and weight loss, ENT: Negative for injury, kb pain, and discharge, Neck: Negative for injury, pain, and swelling, Cardiovascular: Negative for chest pain, palpitations, and edema, Respiratory: Negative for shortness of breath, cough, wheezing, and pleuritic chest pain, Abdomen/GI: Negative for abdominal pain, nausea, vomiting, diarrhea, and constipation, Back: Negative for injury and pain, MS/Extremity: Negative for injury and deformity, Skin: Negative for injury, rash, and discoloration, Neuro: Negative for headache, weakness, numbness, tingling, and seizure. 14:30 Psych: Positive for suicidal ideation. Exam: 14:29 Constitutional: This is a well developed, well nourished patient who is awake, alert, kb and in no acute distress. Head/Face: Normocephalic, atraumatic. ENT: Nares patent. No nasal discharge, no septal abnormalities noted. Tympanic membranes are normal and external auditory canals are clear. Oropharynx with no redness, swelling, or masses, exudates, or evidence of obstruction, uvula midline. Mucous membranes moist. Neck: Trachea midline, no thyromegaly or masses palpated, and no cervical lymphadenopathy. Supple, full range of motion without nuchal rigidity, or vertebral point tenderness. No Meningismus. Chest/axilla: Normal chest wall appearance and motion. Nontender with no deformity. No lesions are appreciated. Cardiovascular: Regular rate and rhythm with a normal S1 and S2. No gallops, murmurs, or rubs. Normal PMI, no JVD. No pulse deficits. Respiratory: Lungs have equal breath sounds bilaterally, clear to auscultation and percussion. No rales, rhonchi or wheezes noted. No increased work of breathing, no retractions or nasal flaring. Abdomen/GI: Soft, non-tender, with normal bowel sounds. No distension or tympany. No guarding or rebound. No evidence of tenderness throughout. Back: No spinal tenderness. No costovertebral tenderness. Full range of motion. Skin: Warm, dry with normal turgor. Normal color with no rashes, no lesions, and no evidence of cellulitis. MS/ Extremity: Pulses equal, no cyanosis. Neurovascular intact. Full, normal range of motion. Neuro: Awake and alert, GCS 15, oriented to person, place, time, and situation. Cranial nerves II-XII grossly intact. Motor strength 5/5 in all extremities. Sensory grossly intact. Cerebellar exam normal. Normal gait. 14:29 Psych: Behavior/mood is cooperative, Affect is calm, Oriented to person, place, time, Patient having thoughts of suicide. Denies suicidal plan. Judgement / Insight is normal. Memory is normal. Delusions/hallucinations are not present. Vital Signs: 12:25 BP 146 / 97; Pulse 70; Resp 15; Temp 98.0(O); Pulse Ox 99% on R/A; Weight 54.43 kg; dh3 Height 5 ft. 3 in. (160.02 cm); Pain 0/10; 17:00 BP 106 / 61; Pulse 70; Resp 16; Temp 97.6(TE); Pulse Ox 97% on R/A; dh3 21:00 BP 122 / 75; Pulse 66; Resp 16; Pulse Ox 99% on R/A; mw2 10 01:00 BP 122 / 75; Pulse 70; Resp 16; Pulse Ox 100% on R/A; mw2 05:40 BP 120 / 70; Pulse 68; Resp 18; Pulse Ox 99% on R/A; mw2 09:06 BP 118 / 68; Pulse 70; Resp 16; Temp 97.8(O); Pulse Ox 99% on R/A; 5 12:48 BP 108 / 68; Pulse 68; Resp 17; Temp 98.0(O); Pulse Ox 99% on R/A; 5 16:40 BP 116 / 62; Pulse 68; Resp 17; Temp 97.6(O); Pulse Ox 99% on R/A; mh5 20:55 BP 120 / 84; Pulse 79; Resp 18; Temp 97.4(O); Pulse Ox 99% on R/A; ar5 1005 03:09 BP 117 / 67; Pulse 69; Resp 16; Temp 98.5(O); Pulse Ox 99% on R/A; ar5 07:50 BP 116 / 82; Pulse 79; Resp 16; Temp 98.2(O); Pulse Ox 100% ; dh3 12:01 BP 117 / 83; Pulse 70; Resp 16; Temp 98.1(O); Pulse Ox 100% on R/A; dh3 16:04 BP 118 / 81; Pulse 71; Resp 16; Pulse Ox 100% on R/A; dh3 20:00 BP 109 / 61; Pulse 70; Resp 18; Temp 98.5; Pulse Ox 98% ; fs 10 00:16 BP 112 / 74; Pulse 67; Resp 16; Pulse Ox 98% on R/A; mt 04:34 BP 104 / 72; Pulse 77; Resp 16; Temp 98.1; Pulse Ox 98% ; fs 08:07 BP 127 / 78; Pulse 70; Resp 18; Temp 98.5; Pulse Ox 97% ; jd2 12:52 BP 134 / 70; Pulse 85; Resp 20; Temp 98; Pulse Ox 98% on R/A; jd2 05/19 12:25 Body Mass Index 21.26 (54.43 kg, 160.02 cm) dh3 MDM: 05/19 12:26 Patient medically screened. kb 14:29 Data reviewed: vital signs, nurses notes. Data interpreted: Pulse oximetry: on room air kb is 99 %. Interpretation: normal. 05/20 02:21 ED course: pt has been sleeping peacefully most of shift. walks to bathroom at snw intervals. no needs/concerns voiced. 12:37 ED course: Pt still reportinh suicidal ideations. kb 05/21 08:06 ED course: Pt sleeping and cooperative. Reports indifference and not sure if she will rn harm herself. Evaluated by mental health and recommended transfer, awaiting transfer. . 05/22 13:22 ED course: Patient denies suicidal ideation since last night, called out [facility] to rn reevaluate, they confirmed that patient is no longer suicidal, patient denies suicidal ideation to me. Is supposed to be discharged to [facility], completed safety plan, has outpt f/u. [facility] braille teacher states ok to dc home at this point.. 05/19 12:26 Order name: Acetaminophen; Complete Time: 13:11 kb 05/19 12:26 Order name: Basic Metabolic Panel; Complete Time: 13:11 kb 05/19 12:26 Order name: CBC with Diff; Complete Time: 15:57 kb 05/19 12:26 Order name: ETOH Level; Complete Time: 13:10 kb 05/19 12:26 Order name: Hepatic Function; Complete Time: 13:11 kb 05/19 12:26 Order name: PT-INR; Complete Time: 13:10 kb 05/19 12:26 Order name: Ptt, Activated; Complete Time: 13:10 kb 05/19 12:26 Order name: Salicylate; Complete Time: 13:24 kb 05/19 12:26 Order name: Urine Drug Screen; Complete Time: 12:56 kb 05/19 12:59 Order name: Urine Dipstick--Ancillary (enter results); Complete Time: 13:07 bd 05/19 12:59 Order name: Urine --Ancillary (enter results); Complete Time: 13:07 bd 05/19 13:11 Order name: Manual Differential; Complete Time: 15:57 EDMS 05/19 12:26 Order name: Urine Test (obtain specimen); Complete Time: 12:47 kb 05/19 12:26 Order name: EKG; Complete Time: 12:28 kb 05/19 12:26 Order name: EKG - Nurse/Tech; Complete Time: 13:00 kb 05/19 12:26 Order name: IV Saline Lock; Complete Time: 12:47 kb 05/19 13:01 Order name: Diet Regular; Complete Time: 13:02 3 05/19 15:50 Order name: Diet Regular; Complete Time: 15:51 3 05/20 05:01 Order name: Diet Regular; Complete Time: 05:02 2 05/20 10:11 Order name: Diet Regular; Complete Time: 10:12 5 05/20 14:17 Order name: Diet Regular; Complete Time: 14:17 5 05/21 07:34 Order name: Diet Regular; Complete Time: 07:34 3 05/21 10:49 Order name: Diet Regular; Complete Time: 10:49 3 05/21 14:33 Order name: Diet Regular; Complete Time: 14:34 3 05/22 08:27 Order name: Diet Regular; Complete Time: 08:27 jd2 05/19 12:26 Order name: Labs collected and sent; Complete Time: 12:47 kb 05/19 12:26 Order name: Urine Dipstick-Ancillary (obtain specimen); Complete Time: 12:47 kb Administered Medications: 05/20 14:51 Drug: Benadryl 25 mg Route: PO; mg2 15:30 Follow up: Response: No adverse reaction; Marked relief of symptoms mg2 18:37 Drug: Atarax 25 mg Route: PO; mg2 05/21 08:06 Follow up: Response: No adverse reaction em 12:34 Drug: Atarax 25 mg Route: PO; em 13:30 Follow up: Response: No adverse reaction em 21:04 Drug: Atarax 25 mg Route: PO; ea 05/22 09:06 Follow up: Response: No adverse reaction em 09:44 Drug: Atarax 25 mg Route: PO; em 12:35 Follow up: Response: No adverse reaction; Marked relief of symptoms em Disposition: 17:28 Co-signature as Attending Physician, Adalberto Slater MD. rn Disposition: 05/22/19 13:22 Discharged to Home. Impression: suicidal ideations, resolved. - Condition is Stable. - Discharge Instructions: Suicidal Feelings: How to Help Yourself. - Medication Reconciliation Form, Thank You Letter, Antibiotic Education, Prescription Opioid Use form. - Follow up: Private Physician; When: As needed; Reason: Recheck today's complaints, Re-evaluation by your physician. - Problem is new. - Symptoms have improved. Signatures: Dispatcher [employer] EDMS Asia Ramos, RESEARCH DIETITIAN-C RESEARCH DIETITIAN-Ckb Wilbert Selby MD MD cha Therrien, Shelly, RESEARCH DIETITIAN-C RESEARCH DIETITIAN-Csnw Guevara Saini, SECURITY STRATEGIST SECURITY STRATEGIST em Adalberto Slater MD MD rn Smirch, Shelby, RN RN ss Page, Corey, PA PA cp Antunez, Elena, RN Wesley Woodward ea RN PUMA mg2 Corrections: (The following items were deleted from the chart) 13:21 05/19 17:33 05/19/2019 17:33 Transfer ordered to Psych Facility. Diagnosis is Suicidal rn ideations; Bipolar disorder. Reason for transfer: Higher level of care. Accepting physician is to psych. Condition is Stable. Problem is new. Symptoms have improved. [facility] 05/22 13:41 13:22 05/22/2019 13:22 Discharged to Home. Impression: suicidal ideations, resolved. em Condition is Stable. Forms are Medication Reconciliation Form, Thank You Letter, Antibiotic Education, Prescription Opioid Use. Follow up: Private Physician; When: As needed; Reason: Recheck today's complaints, Re-evaluation by your physician. Problem is new. Symptoms have improved. rn
[2019-05-20] MEDS ORDERED: DIPHENHYDRAMINE 25 MG TAB/CAP ONE (14:51)
[2019-05-20] MEDS ORDERED: hydrOXYzine HCl 25 MG TAB ONE (18:27)
--- NOTE | 2019-05-20 19:07 | EKG ---
Test Date: 2019-05-19 Test Time: 13:01:08 Intermediate Teacher: HERNANDEZ MEASUREMENT RESULTS: Intervals: Rate: 68 KS: 126 QRSD: 94 QT: 406 QTc: 431 [place]: P: 46 KS: 126 QRS: 82 T: 25 INTERPRETIVE STATEMENTS: Normal sinus rhythm Normal ECG Compared to ECG 03/16/2015 02:40:16 Sinus arrhythmia no longer present Electronically Signed On 05-19-19 17:50:48 CDT by Wilver Lawrence
[2019-05-21] MEDS ORDERED: hydrOXYzine HCl 25 MG TAB ONE ×2 (12:15→20:53)
[2019-05-22] MEDS ORDERED: hydrOXYzine HCl 25 MG TAB ONE (09:42)
[2019-05-22 14:18] VITALS: BP 134/70; TEMP 98; O2SAT 98
== END 2019-05-22 13:41 | disposition home or self-care (01) ==
LOC: ER 12:17
DX: R45.851 Suicidal ideations (principal); F17.210 Nicotine dependence, cigarettes, uncomplicated
CPT/HCPCS: 36415; 80048; 80076; 80307; 80320; 80329; 81003; 81025; 85025; 85610; 85730; 93005; 99285

== ENCOUNTER 2019-05-25 16:16 | Emergency (ER) | payer SELFPAY ==
[2019-05-25] MEDS ORDERED: NA CHLORIDE 0.9% 1,000 ML ONE (17:28)
[2019-05-25 17:36] LABS: Protime INR 1.12
[2019-05-25 17:57] LABS: ALT/SGPT 43 U/L (12-78); AST/SGOT 30 U/L (15-37); Albumin 4.4 g/dL (3.4-5.0); Alkaline Phosphatase 74 U/L (45-117); BUN Blood Urea Nitrogen 19 mg/dL (7-18); Bicarbonate 28 mmol/L (21-32); Bilirubin Direct 0.1 mg/dL (0-0.2); Bilirubin Total 0.4 mg/dL (0.2-1.0); Glucose Level 88 mg/dL (74-106); Potassium 3.8 mmol/L (3.5-5.1); Sodium Level 139 mmol/L (136-145)
[2019-05-25 18:07] LABS: Absolute Lymphocytes (CBC) 3.6 K/uL (0.7-4.9); Hematocrit 36.5 % (36.0-45.0); MPV 8.6 fL (7.6-11.3); RBC Red Blood Cell Count 3.87 M/uL (3.86-4.86)
--- NOTE | 2019-05-25 18:24 | EKG ---
Test Date: 2019-05-25 Test Time: 17:28:36 Disciplinary Hearing Officer: JORDON MEASUREMENT RESULTS: Intervals: Rate: 72 OR: 122 QRSD: 94 QT: 422 QTc: 462 [place]: P: 47 OR: 122 QRS: 67 T: 26 INTERPRETIVE STATEMENTS: Normal sinus rhythm Normal ECG Compared to ECG 05/19/2019 13:01:08 No significant changes Electronically Signed On 05-25-19 18:23:33 CDT by Wilver Lawrence
--- NOTE | 2019-05-25 18:30 | EDPHYS ---
Physician Documentation [facility] Name: Iliana Tolentino Age: 39 yrs Sex: Female : 1980 Arrival Date: 05/25/2019 Time: 16:19 Bed 25 Private MD: ED Physician Wilbert Selby HPI: 05/25 17:13 This 39 yrs old Female presents to ER via Ambulatory with complaints of jay Unable to sleep. 17:13 substance abuse, insomnia. Severity of symptoms: At their worst the symptoms were mild jay in the emergency department the symptoms are unchanged. The patient has experienced similar episodes in the past, a few times. 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 - Social history:: Smoking status: Patient uses tobacco products, smokes one pack cigarettes per day. - Ebola Screening: : No symptoms or risks identified at this time. - Family history:: not pertinent. ROS: 17:13 Constitutional: Negative for fever, chills, and weight loss, Eyes: Negative for injury, jay pain, redness, and discharge, ENT: Negative for injury, pain, and discharge, Neck: Negative for injury, pain, and swelling, Cardiovascular: Negative for chest pain, palpitations, and edema, Respiratory: Negative for shortness of breath, cough, wheezing, and pleuritic chest pain, Abdomen/GI: Negative for abdominal pain, nausea, vomiting, diarrhea, and constipation, Back: Negative for injury and pain, : Negative for injury, bleeding, discharge, and swelling, MS/Extremity: Negative for injury and deformity, Skin: Negative for injury, rash, and discoloration, Neuro: Negative for headache, weakness, numbness, tingling, and seizure, Allergy/Immunology: Negative for hives, rash, and allergies, Endocrine: Negative for neck swelling, polydipsia, polyuria, polyphagia, and marked weight changes, Hematologic/Lymphatic: Negative for swollen nodes, abnormal bleeding, and unusual bruising. 17:13 Psych: Positive for drug dependence, insomnia. Exam: 17:13 Constitutional: This is a well developed, well nourished patient who is awake, alert, jay and in no acute distress. Head/Face: Normocephalic, atraumatic. Eyes: Pupils equal round and reactive to light, extra-ocular motions intact. Lids and lashes normal. Conjunctiva and sclera are non-icteric and not injected. Cornea within normal limits. Periorbital areas with no swelling, redness, or edema. ENT: Nares patent. No nasal discharge, no septal abnormalities noted. Tympanic membranes are normal and external auditory canals are clear. Oropharynx with no redness, swelling, or masses, exudates, or evidence of obstruction, uvula midline. Mucous membranes moist. Neck: Trachea midline, no thyromegaly or masses palpated, and no cervical lymphadenopathy. Supple, full range of motion without nuchal rigidity, or vertebral point tenderness. No Meningismus. Chest/axilla: Normal chest wall appearance and motion. Nontender with no deformity. No lesions are appreciated. Cardiovascular: Regular rate and rhythm with a normal S1 and S2. No gallops, murmurs, or rubs. Normal PMI, no JVD. No pulse deficits. Respiratory: Lungs have equal breath sounds bilaterally, clear to auscultation and percussion. No rales, rhonchi or wheezes noted. No increased work of breathing, no retractions or nasal flaring. Abdomen/GI: Soft, non-tender, with normal bowel sounds. No distension or tympany. No guarding or rebound. No evidence of tenderness throughout. Back: No spinal tenderness. No costovertebral tenderness. Full range of motion. Skin: Warm, dry with normal turgor. Normal color with no rashes, no lesions, and no evidence of cellulitis. MS/ Extremity: Pulses equal, no cyanosis. Neurovascular intact. Full, normal range of motion. Neuro: Awake and alert, GCS 15, oriented to person, place, time, and situation. Cranial nerves II-XII grossly intact. Motor strength 5/5 in all extremities. Sensory grossly intact. Cerebellar exam normal. Normal gait. Psych: Awake, alert, with orientation to person, place and time. Behavior, mood, and affect are within normal limits. Vital Signs: 16:27 BP 121 / 87; Pulse 95; Resp 20 S; Temp 97.8(TE); Pulse Ox 97% on R/A; aa5 17:38 BP 126 / 85; Pulse 89; Resp 17 S; Pulse Ox 100% on R/A; ca1 18:31 BP 132 / 89; Pulse 92; Resp 17 S; Pulse Ox 98% on R/A; ca1 MDM: 16:30 Patient medically screened. [facility] 18:29 Data reviewed: vital signs, nurses notes, lab test result(s), EKG. [facility] 05/25 17:12 Order name: Acetaminophen; Complete Time: 18:28 [facility] 05/25 17:12 Order name: Basic Metabolic Panel; Complete Time: 18:28 [facility] 05/25 17:12 Order name: CBC with Diff; Complete Time: 18:28 [facility] 05/25 17:12 Order name: ETOH Level; Complete Time: 18:28 [facility] 05/25 17:12 Order name: Hepatic Function; Complete Time: 18:28 [facility] 05/25 17:12 Order name: PT-INR; Complete Time: 17:49 [facility] 05/25 17:12 Order name: Urine Test (obtain specimen); Complete Time: 18:26 [facility] 05/25 17:12 Order name: Ptt, Activated; Complete Time: 17:49 [facility] 05/25 17:12 Order name: Salicylate; Complete Time: 18:28 [facility] 05/25 17:12 Order name: Urine Drug Screen [facility] 05/25 17:12 Order name: EKG; Complete Time: 17:13 [facility] 05/25 18:26 Order name: Urine Dipstick--Ancillary (enter results) 05/25 18:26 Order name: Urine --Ancillary (enter results) 05/25 17:12 Order name: EKG - Nurse/Tech; Complete Time: 17:28 [facility] 05/25 17:12 Order name: IV Saline Lock; Complete Time: 17:28 [facility] 05/25 17:12 Order name: Labs collected and sent; Complete Time: 17:28 [facility] 05/25 17:12 Order name: Urine Dipstick-Ancillary (obtain specimen); Complete Time: 18:26 [facility] Administered Medications: 17:34 Drug: NS 0.9% 1000 ml Route: IV; Rate: 1 bolus; Site: left antecubital; [facility] 18:25 Follow up: Urine output 210 ml; Response: No adverse reaction; IV Status: Completed ca1 infusion Disposition: 05/25/19 18:29 Discharged to Home. Impression: Bipolar disorder, Abuse of non-psychoactive substances, Adverse effect of amphetamines, Insomnia. - Condition is Stable. - Discharge Instructions: Stimulant Use Disorder-Amphetamines, Insomnia, Bipolar Disorder, Substance Use Disorder, Stimulant Use Disorder-Methamphetamines. - Prescriptions for Benadryl 25 mg Oral Capsule - take 1 capsule by ORAL route every 6 hours As needed; 30 tablet. - Medication Reconciliation Form, Thank You Letter, Antibiotic Education, Prescription Opioid Use form. - Follow up: Private Physician; When: 2 - 3 days; Reason: Recheck today's complaints, Continuance of care, Re-evaluation by your physician. - Problem is new. - Symptoms have improved. Signatures: Dispatcher [employer] EDMS Wilbert Selby MD MD cha Calderon, Audri RN RN aa5 Avril Troncoso RN RN ca1 Corrections: (The following items were deleted from the chart) 18:37 18:29 05/25/2019 18:29 Discharged to Home. Impression: Bipolar disorder; Abuse of ca1 non-psychoactive substances; Adverse effect of amphetamines; Insomnia. Condition is Stable. Discharge Instructions: Stimulant Use Disorder-Amphetamines, Insomnia, Substance Use Disorder, Stimulant Use Disorder-Methamphetamines. Prescriptions for Benadryl 25 mg Oral Capsule - take 1 capsule by ORAL route every 6 hours As needed; 30 tablet. and Forms are Medication Reconciliation Form, Thank You Letter, Antibiotic Education, Prescription Opioid Use. Follow up: Private Physician; When: 2 - 3 days; Reason: Recheck today's complaints, Continuance of care, Re-evaluation by your physician. Problem is new. Symptoms have improved. jay
--- NOTE | 2019-05-25 18:30 | ER ---
Nurse's Notes [facility] Name: Iliana Tolentino Age: 39 yrs Sex: Female : 1980 Arrival Date: 05/25/2019 Time: 16:19 Bed 25 Private MD: Diagnosis: Bipolar disorder;Abuse of non-psychoactive substances;Adverse effect of amphetamines;Insomnia Presentation: 05/25 16:24 Presenting complaint: Patient states: "I was discharged a few days ago from here and I aa5 went to [facility] the next day but then I ended up leaving to go get high". Pt states "I did some meth and heroin". Pt states "I am here because I haven't been able to sleep in days". Pt denies suicidal or homicidal thoughts. 16:24 Method Of Arrival: Ambulatory aa5 16:24 Transition of care: patient was not received from another setting of care. Onset of aa5 symptoms was May 25, 2019. Risk Assessment: Do you want to hurt yourself or someone else? Patient reports no desire to harm self or others. Initial Sepsis Screen: Does the patient meet any 2 criteria? No. Patient's initial sepsis screen is negative. Does the patient have a suspected source of infection? No. Patient's initial sepsis screen is negative. Care prior to arrival: None. 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 - Social history:: Smoking status: Patient uses tobacco products, smokes one pack cigarettes per day. - Ebola Screening: : No symptoms or risks identified at this time. - Family history:: not pertinent. Screenin:38 Abuse screen: Denies threats or abuse. Denies injuries from another. Nutritional ca1 screening: No deficits noted. Tuberculosis screening: No symptoms or risk factors identified. Fall Risk None identified. Assessment: 16:32 General: Appears in no apparent distress. comfortable, Behavior is calm, cooperative, ca1 appropriate for age, Reports fatigue for >3 days, inability to sleep for about a week now. Pain: Denies pain. Neuro: Level of Consciousness is awake, alert, obeys commands, Oriented to person, place, time, situation, Appropriate for age. Cardiovascular: Heart tones S1 S2 present Capillary refill < 3 seconds Patient's skin is warm and dry. Respiratory: Airway is patent Respiratory effort is even, unlabored, Respiratory pattern is regular, symmetrical, Breath sounds are clear bilaterally. GI: Abdomen is flat, non-distended, Bowel sounds present X 4 quads. Abd is soft and non tender X 4 quads. : No deficits noted. No signs and/or symptoms were reported regarding the genitourinary system. EENT: No deficits noted. No signs and/or symptoms were reported regarding the EENT system. Derm: Skin is intact, is healthy with good turgor, Skin is pink, warm \\T\\ dry. Rash noted that is red, raised, urticaria, on gluteal cleft, groin. Musculoskeletal: Circulation, motion, and sensation intact. Capillary refill < 3 seconds, Range of motion: intact in all extremities. 17:38 Reassessment: Patient appears in no apparent distress at this time. Patient and/or ca1 family updated on plan of care and expected duration. Pain level reassessed. Patient is alert, oriented x 3, equal unlabored respirations, skin warm/dry/pink. 18:31 Reassessment: Patient appears in no apparent distress at this time. Patient is alert, ca1 oriented x 3, equal unlabored respirations, skin warm/dry/pink. Vital Signs: 16:27 BP 121 / 87; Pulse 95; Resp 20 S; Temp 97.8(TE); Pulse Ox 97% on R/A; aa5 17:38 BP 126 / 85; Pulse 89; Resp 17 S; Pulse Ox 100% on R/A; ca1 18:31 BP 132 / 89; Pulse 92; Resp 17 S; Pulse Ox 98% on R/A; ca1 ED Course: 16:19 Patient arrived in ED. as 16:23 Arm band placed on. aa5 16:26 Triage completed. aa5 16:28 Avril Troncoso, PUMA is Primary Nurse. ca1 16:30 Wilbert Selby MD is Attending Physician. [facility] 16:38 Patient has correct armband on for positive identification. Bed in low position. Call ca1 light in reach. Side rails up X 1. Pulse ox on. NIBP on. Warm blanket given. 16:38 No provider procedures requiring assistance completed. ca1 17:30 Initial lab(s) drawn, by me, sent to lab. Inserted saline lock: 20 gauge in left ca1 antecubital area, using aseptic technique. Blood collected. 17:31 EKG done, by glass technician/installer. reviewed by Wilbert Selby MD. 3 18:36 IV discontinued, intact, bleeding controlled, No redness/swelling at site. Pressure ca1 dressing applied. Administered Medications: 17:34 Drug: NS 0.9% 1000 ml Route: IV; Rate: 1 bolus; Site: left antecubital; ca1 18:25 Follow up: Urine output 210 ml; Response: No adverse reaction; IV Status: Completed ca1 infusion Output: 18:25 Urine: 210ml; Total: 210ml. ca1 Outcome: 18:29 Discharge ordered by . jay 18:36 Discharged to home ambulatory. ca1 18:36 Condition: stable 18:36 Discharge instructions given to patient, Instructed on discharge instructions, follow up and referral plans. medication usage, Demonstrated understanding of instructions, follow-up care, medications, Prescriptions given X 1. 18:37 Patient left the ED. ca1 Signatures: Wilbert Selby MD MD cha Martinez, Amelia as Calderon, Audri, RN RN aa5 Angelica Douglass 3 Avril Troncoso, RN RN ca1 Corrections: (The following items were deleted from the chart) 16:26 16:24 Presenting complaint: Patient states: "I was discharged a few days ago from here aa5 and I went to [facility] the next day but then I ended up leaving to go get high" aa5 17:35 16:38 Patient did not have IV access during this emergency room visit. ca1 ca1
[2019-05-25 18:54] LABS: Barbiturates NEGATIVE (NEGATIVE); Benzodiazepines NEGATIVE (NEGATIVE); Cocaine NEGATIVE (NEGATIVE); METHAMPHETAM POSITIVE (NEGATIVE); Methadone NEGATIVE (NEGATIVE); Opiates NEGATIVE (NEGATIVE); Phencyclidine NEGATIVE (NEGATIVE); THC Cannibis NEGATIVE (NEGATIVE)
[2019-05-25 19:12] VITALS: TEMP 97.8
[2019-05-25 19:15] VITALS: BP 132/89; O2SAT 98
[2019-05-25 19:40] LABS: Urine Blood NEGATIVE (NEG); Urine Glucose NEGATIVE (NEG); Urine Protein NEGATIVE (NEG); Urine Specific Gravity >1.030 (1.005-1.030)
== END 2019-05-25 18:37 | disposition home or self-care (01) ==
LOC: ER 16:16
DX: F31.9 Bipolar disorder, unspecified (principal); T43.625A Adverse effect of amphetamines, initial encounter; Y92.9 Unspecified place or not applicable; F55.8 Abuse of other non-psychoactive substances; G47.00 Insomnia, unspecified; F17.210 Nicotine dependence, cigarettes, uncomplicated
CPT/HCPCS: 36415; 80048; 80076; 80307; 80320; 80329; 81003; 81025; 85025; 85610; 85730; 93005; 96360; 99284; J7030

== ENCOUNTER 2019-08-15 17:44 | Inpatient (IN) | payer SELFPAY ==
--- OUTSIDE RECORDS SUMMARY | 2019-08-15 17:47 | XMS REPORT ---
:1980 [facility] Address [address] [place] [address] [place] [id number] Care Team Providers Name Role Phone UNKNOWN, [...] Reference Range Comments Chlamydia trachomatis, CECILIA (test [id number]) Negative Negative Neisseria gonorrhoeae, CECILIA (test [id number]) Negative Negative Smear, Wet [id number] 10:19:00 Test Item Value Reference Range Comments WBC (test code=JWBC) NONE EPITHELIAL CELLS (test code=JEPITH) MODERATE BACTERIA (test code=JBACTERIA) MODERATE CLUE CELLS (test code=JCLUE) NONE YEAST (test code=JYEAST) NONE TRICHOMONAS (test code=JTRICH) NONE RPR, [id number] 02:13:00 Test Item Value Reference Range Comments RPR (test code=RPR) Non-Reactive Non-Reactive Thyroid Stimulating Hormone (TSH)2017-08-21 08:25:00 Test Item Value Reference Range Comments TSH (test code=TSH) 1.67 mIU/mL 0.270-4.200 Lipid [id number] 08:25:00 Test Item Value Reference Range Comments Cholesterol (test 172 mg/dL 0-200 code=CHOL) Triglycerides (test 106 mg/dL 9-200 code=TRIG) HDL (test code=HDL) 43 mg/dL 50-60 Chol/HDL (test 4.0 Ratio 0.0-4.4 code=CHOLPHDL) LDL, Calculated (test 108 0-130 (NOTE)RISK OF HEART code=LDLC) DISEASEPublished by Indian Heart AssociationAnalyte Optimal Boderline Increased RiskCHOL <200 200-239 >240TRIG <150 150-199 >200HDL Male: >60 <40HDL Female: >60 <50LDL <100 130-159 >160LDL NEAR OPTIMAL IS 100-129 VLDL (test code=VLDL) 21 mg/dL 5-40 LDL/HDL (test code=LDLPHDL) 3 BHCG, Serum, [id number] 07:53:00 Test Item Value Reference Range Comments Preg Qual [Se] (test code=BSHCG) Negative Negative Alcohol/Ethanol, [id number] 20:38:00 Test Item Value Reference Range Comments Alcohol, Ethyl (test <0.01 g/dL 0.00-0.01 Intoxicated 0.080 g/dL or code=ETOH) more Comprehensive Metabolic [id number] 20:38:00 Test Item Value Reference Range Comments [...] race is not provided, and the patient isAfrican-Indian, multiply by 1.212. If sex is not provided, and thepatient is female, multiply by 0.742. Results for patients <18 years ofage have not been validated by the MDRD study and should be interpretedwith caution.eGFR Result Interpretation:eGFR > or=60 is in the Normal RangeeGFR < 60 may mean kidney diseaseeGFR < 15 may mean kidney failureRanges recommended by the National Kidney Foundation,http://nkdep.nih .gov [id number] 20:31:00 Test Item Value Reference Range Comments [...] THC (test code=THC) POSITIVE Negative CBC with [id number] 20:30:00 Test Item Value Reference Range Comments [...] Lymph Abs (test code=ALYMPH) 5.8 K/cumm 0.5-4.6 Pacific Abs (test code=AMONO) 0.8 K/cumm 0.0-1.2 Eos Abs (test code=AEOS) 0.43 K/cumm 0.00-0.74 Baso Abs (test code=ABASO) 0.1 K/cumm 0.00-0.21 BHCG, Serum, [id number] 20:29:00 Test Item Value Reference Range Comments Preg Qual [Se] (test code=BSHCG) Negative Negative
--- NOTE | 2019-08-15 19:22 | RAD REPORT ---
EXAM DESCRIPTION: RAD - Humerus Right - 08/15/2019 7:11 pm CLINICAL HISTORY: Right arm pain FINDINGS: No fracture is seen No bony lesion noted
--- NOTE | 2019-08-15 19:23 | RAD REPORT ---
EXAM DESCRIPTION: RAD - Forearm Right - 08/15/2019 7:11 pm CLINICAL HISTORY: Right arm pain FINDINGS: No fracture is seen. No bony destructive lesion noted. Edema is present within the subcutaneous tissues
[2019-08-15 19:42] LABS: Potassium 3.1 mmol/L (3.5-5.1)
[2019-08-15] MEDS ORDERED: CLINDAMYCIN 900MG/D5W 900 MG/50 ML IVPB IV ONE (19:45)
[2019-08-15] MEDS ORDERED: ONDANSETRON 4 MG/2 ML VIAL ONE (19:45)
[2019-08-15] MEDS ORDERED: MORPHINE 4 MG/ML SYR ONE (19:45)
[2019-08-15 19:54] LABS: Absolute Lymphocytes (CBC) 1.3 K/uL (0.7-4.9); Basophils % 0.3 % (0-1.3); Hematocrit 38.2 % (36.0-45.0); Lymphocytes % 8.4 % (15.3-44.8); MPV 8.8 fL (7.6-11.3); RBC Red Blood Cell Count 4.06 M/uL (3.86-4.86)
[2019-08-15] MEDS ORDERED: FENTANYL CITR 100 MCG/2 ML ONE (20:01)
--- NOTE | 2019-08-15 20:16 | ER ---
Nurse's Notes [facility] Name: Iliana Tolentino Age: 39 yrs Sex: Female : 1980 Arrival Date: 08/15/2019 Time: 17:48 Bed 17 Private MD: None, None Diagnosis: Cellulitis of right upper limb;Urinary tract infection, site not specified Presentation: 08/15 18:19 Presenting complaint: Patient states: Fever and body aches for 1-2 days, reports pain sg and swelling to the right elbow and right fore arm with reddness, pt states having chills as well. Transition of care: patient was not received from another setting of care. Onset of symptoms was August 15, 2019. Risk Assessment: Do you want to hurt yourself or someone else? Patient reports no desire to harm self or others. Initial Sepsis Screen: Does the patient meet any 2 criteria? HR > 90 bpm. Does the patient have a suspected source of infection? Yes: Skin breakdown/wound. Care prior to arrival: None. 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 - Social history:: Smoking status: Patient/guardian denies using tobacco. - Ebola Screening: : Patient negative for fever greater than or equal to 101.5 degrees Fahrenheit, and additional compatible Ebola Virus Disease symptoms Patient denies exposure to infectious person Patient denies travel to an Ebola-affected area in the 21 days before illness onset No symptoms or risks identified at this time. Screenin:56 Abuse screen: Denies threats or abuse. Nutritional screening: No deficits noted. tw2 Tuberculosis screening: No symptoms or risk factors identified. Fall Risk None identified. Assessment: 18:25 General: Appears uncomfortable, Behavior is cooperative. Pain: Complains of pain in tw2 right arm. Neuro: Level of Consciousness is awake, alert, obeys commands, Oriented to person, place, time, situation. Cardiovascular: Heart tones S1 S2 Patient's skin is warm and dry. Respiratory: Airway is patent Respiratory effort is even, unlabored, Respiratory pattern is regular, symmetrical, Breath sounds are clear bilaterally. GI: No signs and/or symptoms were reported involving the gastrointestinal system. Abdomen is flat, Bowel sounds present X 4 quads. : No signs and/or symptoms were reported regarding the genitourinary system. EENT: No signs and/or symptoms were reported regarding the EENT system. Derm: redness and swelling noted to right arm. 18:55 Reassessment: xray at bedside at this time. tw2 19:15 Musculoskeletal: Reports pain in right arm. tw2 19:42 Reassessment: Verbal order from Provider for Morphine 4mg IV now, Zofran 4 mg IV now. lp1 20:00 Reassessment: Patient blood pressure low, Provider notified, new orders as follows, vc fentanyl 25mg IVP times one dose. VORB. 21:00 Reassessment: Patient and/or family updated on plan of care and expected duration. Pain vc level reassessed. Patient is alert, oriented x 3, equal unlabored respirations, skin warm/dry/pink. Patient running oral temp of 103.2, provider notified. 22:00 Reassessment: Patient resting with eyes closed. Family at bedside. Waiting on a room. vc 23:00 Reassessment: Patient laying with eyes closed, resting comfortably. No complaints of vc pain at this time. 23:00 Reassessment: Patient resting comfortable, waiting on room assignment. No complaints of vc pain at this time. 08/16 00:46 Reassessment: Attempted to call report to 4th floor. Will try back. vc 01:20 Reassessment: Attempted to call report to 4th floor, nurse states they will call back. vc Patient resting with eyes closed, no complaint of pain at this time. 01:35 Reassessment: Patient ambulating to bathroom. vc Vital Signs: 08/15 18:21 BP 106 / 66; Pulse 106; Resp 18; Temp 99.1; Pulse Ox 99% on R/A; Weight 63.5 kg; Pain sg 10/10; 19:30 BP 97 / 59; Pulse 110; Resp 20; Pulse Ox 100% on R/A; Pain 10/10; vc 20:00 BP 83 / 47; Pulse 106; Resp 22; Pulse Ox 100% on R/A; Pain 10/10; vc 21:00 BP 110 / 67; Pulse 103; Resp 18; Pulse Ox 100% on R/A; Pain 10/10; vc 21:30 Temp 103.2(O); vc 22:00 BP 93 / 55; Pulse 99; Resp 18; Pulse Ox 100% on R/A; vc 23:00 BP 96 / 61; Pulse 87; Resp 16; Temp 98.1(O); Pulse Ox 97% on R/A; Pain 0/10; vc 08/16 00:00 BP 74 / 52; Pulse 83; Resp 16; Pulse Ox 100% on R/A; vc 01:00 BP 99 / 61; Pulse 80; Resp 18; Temp 99.1(O); Pulse Ox 100% on R/A; vc ED Course: 08/15 17:48 Patient arrived in ED. mr 17:48 None, None is Private Physician. mr 18:10 Bed in low position. Call light in reach. Adult w/ patient. tw2 18:21 Triage completed. sg 18:21 Asia Ramos FNP-C is PHCP. kb 18:21 Wilbert Selby MD is Attending Physician. kb 18:22 Arm band placed on. sg 19:11 Humerus Right XRAY In Process Unspecified. EDMS 19:12 Forearm Right XRAY In Process Unspecified. EDMS 20:07 Notified Nurse Practitioner and/or Physician Graphite Disk Assembler of a critical lab result(s), lp1 Lactate 2.2. 20:14 Mary Wang MD is Hospitalizing Provider. kb 20:35 Nidia Issa, RN is Primary Nurse. vc 20:37 Blood Culture Adult (2) Sent. vc 20:37 Inserted saline lock: 22 gauge. vc 20:38 Urine Culture Sent. vc 20:38 Urine Microscopic Only Sent. vc 08/16 01:53 No provider procedures requiring assistance completed. vc 01:54 Patient admitted, IV remains in place. vc Administered Medications: 08/15 19:58 CANCELLED (Other Intervention Used): morphine 4 mg IVP once; RASS on ADMIN: Combtv4, kb Very Agttd3, Agttd2, Rstlss1, AlertClm0, Drwsy-1, Lt Sdtn-2, Mod Sdtn-3, Dp Sdtn-4, UnArsble-5 20:05 Drug: Clindamycin 900 mg Route: IVPB; Infused Over: 30 mins; Site: left forearm; vc 21:00 Follow up: Response: No adverse reaction; IV Status: Completed infusion vc 20:05 Drug: Zofran 4 mg Route: IVP; Site: left antecubital; vc 08/16 00:10 Follow up: Response: No adverse reaction vc 08/15 20:05 Drug: fentaNYL (PF) 25 mcg Route: IVP; Site: left antecubital; vc 08/16 00:09 Follow up: Response: No adverse reaction; Pain is decreased vc 08/15 21:35 Drug: NS 0.9% 1000 ml Route: IV; Rate: 1000 ml; Site: left antecubital; vc 08/16 00:09 Follow up: Response: No adverse reaction; IV Status: Completed infusion vc 08/15 21:35 Drug: Macrobid 100 mg Route: PO; vc 23:00 Follow up: Response: No adverse reaction vc 21:35 Drug: Ibuprofen 600 mg {Note: Temp 103.2.} Route: PO; vc 23:00 Follow up: Response: No adverse reaction; Temperature is decreased vc Outcome: 20:15 Decision to Hospitalize by Provider. kb 08/16 01:53 Admitted to Tele accompanied by tech, via wheelchair, room 424, Report called to Fabian Mota Condition: improved Discharge instructions given to patient, Instructed on the need for admit, Demonstrated understanding of instructions. 02:26 Patient left the ED. vc Signatures: Dispatcher [employer] EDMS Asia Ramos, YASMEEN GARSIAP-Estuardo Lyon RN PUMA MasBlaire mr Shruthi Amaya RN RN lp1 May Loco RN RN tw2 Nidia Issa RN RN vc Corrections: (The following items were deleted from the chart) 08/15 19:15 18:25 Derm: redness and swelling noted to right arm. tw2 tw2
--- NOTE | 2019-08-15 20:17 | EDPHYS ---
Physician Documentation [facility] Name: Iliana Tolentino Age: 39 yrs Sex: Female : 1980 Arrival Date: 08/15/2019 Time: 17:48 Bed 17 Private MD: None, None ED Physician Wilbert Selby HPI: 08/15 21:21 This 39 yrs old Female presents to ER via Ambulatory with complaints of Fall kb Injury, Arm Pain, Fever. 21:23 The patient presents with cellulitis of the right arm. Description: erythematous, hot, kb swollen, tense. Onset: The symptoms/episode began/occurred 2 day(s) ago. Possible cause(s): unknown. Associated signs and symptoms: Pertinent positives: erythema, fever, swelling. Modifying factors: the symptoms are alleviated by nothing, the symptoms are aggravated by movement, pressure, squeezing the lesion and expressing the contents, touching. Severity of symptoms: At their worst the symptoms were moderate, severe, in the emergency department the symptoms are unchanged. The patient has not experienced similar symptoms in the past. The patient has not recently seen a physician. 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 - Social history:: Smoking status: Patient/guardian denies using tobacco. - Ebola Screening: : Patient negative for fever greater than or equal to 101.5 degrees Fahrenheit, and additional compatible Ebola Virus Disease symptoms Patient denies exposure to infectious person Patient denies travel to an Ebola-affected area in the 21 days before illness onset No symptoms or risks identified at this time. ROS: 21:20 Constitutional: Negative for fever, chills, and weight loss, ENT: Negative for injury, kb pain, and discharge, Neck: Negative for injury, pain, and swelling, Cardiovascular: Negative for chest pain, palpitations, and edema, Respiratory: Negative for shortness of breath, cough, wheezing, and pleuritic chest pain, Abdomen/GI: Negative for abdominal pain, nausea, vomiting, diarrhea, and constipation, Back: Negative for injury and pain, Neuro: Negative for headache, weakness, numbness, tingling, and seizure. 21:20 MS/extremity: Positive for decreased range of motion, erythema, pain, swelling, tenderness, warmth. 21:20 Skin: Positive for cellulitis, erythema, swelling. 21:22 : Positive for burning with urination. kb Exam: 21:18 Constitutional: This is a well developed, well nourished patient who is awake, alert, kb and in no acute distress. Head/Face: Normocephalic, atraumatic. ENT: Nares patent. No nasal discharge, no septal abnormalities noted. Tympanic membranes are normal and external auditory canals are clear. Oropharynx with no redness, swelling, or masses, exudates, or evidence of obstruction, uvula midline. Mucous membranes moist. Neck: Trachea midline, no thyromegaly or masses palpated, and no cervical lymphadenopathy. Supple, full range of motion without nuchal rigidity, or vertebral point tenderness. No Meningismus. Chest/axilla: Normal chest wall appearance and motion. Nontender with no deformity. No lesions are appreciated. Cardiovascular: Regular rate and rhythm with a normal S1 and S2. No gallops, murmurs, or rubs. Normal PMI, no JVD. No pulse deficits. Respiratory: Lungs have equal breath sounds bilaterally, clear to auscultation and percussion. No rales, rhonchi or wheezes noted. No increased work of breathing, no retractions or nasal flaring. Abdomen/GI: Soft, non-tender, with normal bowel sounds. No distension or tympany. No guarding or rebound. No evidence of tenderness throughout. Neuro: Awake and alert, GCS 15, oriented to person, place, time, and situation. Cranial nerves II-XII grossly intact. Motor strength 5/5 in all extremities. Sensory grossly intact. Cerebellar exam normal. Normal gait. 21:18 Musculoskeletal/extremity: Extremities: grossly normal except: noted in the right arm: decreased ROM, erythema, pain, swelling, tenderness, ROM: limited active range of motion due to pain, in the right elbow, Circulation is intact in all extremities. Sensation intact. 21:21 Skin: cellulitis, that is severe, on the right arm. kb Vital Signs: 18:21 BP 106 / 66; Pulse 106; Resp 18; Temp 99.1; Pulse Ox 99% on R/A; Weight 63.5 kg; Pain sg 10/10; 19:30 BP 97 / 59; Pulse 110; Resp 20; Pulse Ox 100% on R/A; Pain 10/10; vc 20:00 BP 83 / 47; Pulse 106; Resp 22; Pulse Ox 100% on R/A; Pain 10/10; vc 21:00 BP 110 / 67; Pulse 103; Resp 18; Pulse Ox 100% on R/A; Pain 10/10; vc 21:30 Temp 103.2(O); vc 22:00 BP 93 / 55; Pulse 99; Resp 18; Pulse Ox 100% on R/A; vc 23:00 BP 96 / 61; Pulse 87; Resp 16; Temp 98.1(O); Pulse Ox 97% on R/A; Pain 0/10; vc 12 00:00 BP 74 / 52; Pulse 83; Resp 16; Pulse Ox 100% on R/A; vc 01:00 BP 99 / 61; Pulse 80; Resp 18; Temp 99.1(O); Pulse Ox 100% on R/A; vc MDM: 08/15 18:21 Patient medically screened. kb 20:13 Data reviewed: vital signs, nurses notes. Data interpreted: Pulse oximetry: on room air kb is 99 %. Interpretation: normal. Counseling: I had a detailed discussion with the patient and/or guardian regarding: the historical points, exam findings, and any diagnostic results supporting the discharge/admit diagnosis, lab results, radiology results, the need for further work-up and treatment in the hospital. Physician consultation: Mary Wang MD was called at 20:14, regarding admission, to the medical/surgical unit. patient's condition, and will see patient. 08/15 18:29 Order name: CBC with Diff kb 08/15 18: Order name: Basic Metabolic Panel; Complete Time: 19:49 kb 08/15 18:29 Order name: Blood Culture Adult (2) kb 08/15 18:29 Order name: Procalcitonin; Complete Time: 19:58 kb 08/15 18: Order name: Lactate; Complete Time: 20:11 kb 08/15 20:32 Order name: Urine Microscopic Only; Complete Time: 21:04 ar5 08/15 20:32 Order name: Urine Culture ar5 08/15 20:35 Order name: Urine Dipstick--Ancillary (enter results); Complete Time: 21:04 ar5 08/15 20:35 Order name: Urine --Ancillary (enter results); Complete Time: 21:04 ar5 08/15 21:31 Order name: Manual Differential EDMS 08/15 21:34 Order name: CBC Smear Scan EDMS 08/15 21:44 Order name: Basic Metabolic Panel EDMS 08/15 21:44 Order name: Basic Metabolic Panel EDMS 08/15 21:44 Order name: CBC with Automated Diff EDMS 08/15 18:29 Order name: Humerus Right XRAY; Complete Time: 19:27 kb 08/15 18:29 Order name: Forearm Right XRAY; Complete Time: 19:30 kb 08/15 21:44 Order name: CBC with Automated Diff EDMS 08/15 21:44 Order name: Protime (+INR) EDMS 08/15 21:44 Order name: Protime (+INR) EDMS 08/15 21:44 Order name: PTT, Activated Partial Thromb EDMS 08/15 21:44 Order name: PTT, Activated Partial Thromb EDMS 08/15 21:52 Order name: Urine Drug Screen; Complete Time: 02:10 EDMS 08/16 00:28 Order name: Lactate Sepsis 2 HR Follow-up; Complete Time: 00:29 EDMS 08/15 18:29 Order name: IV Start; Complete Time: 20:37 kb 08/15 18:29 Order name: Urine Dipstick-Ancillary (obtain specimen); Complete Time: 20:36 kb 08/15 21:43 Order name: CONS Pharmacy Consult EDMS 08/15 21:43 Order name: CONS Pharmacy Consult EDMS 08/15 21:44 Order name: CONS Pharmacy Consult EDMS 08/15 21:44 Order name: CONS Physician Consult EDMS 08/15 21:44 Order name: NPO EDMS Administered Medications: 19:58 CANCELLED (Other Intervention Used): morphine 4 mg IVP once; RASS on ADMIN: Combtv4, kb Very Agttd3, Agttd2, Rstlss1, AlertClm0, Drwsy-1, Lt Sdtn-2, Mod Sdtn-3, Dp Sdtn-4, UnArsble-5 20:05 Drug: Clindamycin 900 mg Route: IVPB; Infused Over: 30 mins; Site: left forearm; vc 21:00 Follow up: Response: No adverse reaction; IV Status: Completed infusion vc 20:05 Drug: Zofran 4 mg Route: IVP; Site: left antecubital; vc 08/16 00:10 Follow up: Response: No adverse reaction vc 08/15 20:05 Drug: fentaNYL (PF) 25 mcg Route: IVP; Site: left antecubital; vc 08/16 00:09 Follow up: Response: No adverse reaction; Pain is decreased vc 08/15 21:35 Drug: NS 0.9% 1000 ml Route: IV; Rate: 1000 ml; Site: left antecubital; vc 08/16 00:09 Follow up: Response: No adverse reaction; IV Status: Completed infusion vc 08/15 21:35 Drug: Macrobid 100 mg Route: PO; vc 23:00 Follow up: Response: No adverse reaction vc 21:35 Drug: Ibuprofen 600 mg {Note: Temp 103.2.} Route: PO; vc 23:00 Follow up: Response: No adverse reaction; Temperature is decreased vc Disposition: 08/15/19 20:15 Hospitalization ordered by Mary Wang for Inpatient Admission. Preliminary diagnosis are Cellulitis of right upper limb, Urinary tract infection, site not specified. - Bed requested for Telemetry/MedSurg (Inpatient). - Status is Inpatient Admission. vc - Condition is Stable. - Problem is new. - Symptoms are unchanged. UTI on Admission? Yes Addendum: 08/22/2019 10:49 Co-signature as Attending Physician, Wilbert Selby MD I agree with the assessment and c chavez plan of care. Signatures: Dispatcher [employer] Asia Belle, CASSIDY-C [employer]INDOW GL[employer] CUTTER OFF-Estuardo Lyon, RN Wilbert Kenny MD MD cha Pena, Laura, RN RN lp1 Jasmina Arnold RN RN cg May Loco RN RN tw2 Nidia Issa RN RN vc Corrections: (The following items were deleted from the chart) 08/15 19:58 19:42 morphine 4 mg IVP once; RASS on ADMIN: Combtv4, Very Agttd3, Agttd2, Rstlss1, kb AlertClm0, Drwsy-1, Lt Sdtn-2, Mod Sdtn-3, Dp Sdtn-4, UnArsble-5 ordered. lp1 19:58 19:57 morphine 4 mg IVP once; RASS on ADMIN: Combtv4, Very Agttd3, Agttd2, Rstlss1, kb AlertClm0, Drwsy-1, Lt Sdtn-2, Mod Sdtn-3, Dp Sdtn-4, UnArsble-5 ordered. kb 20:32 20:15 Hospitalization Ordered by Mary Wang MD for Inpatient Admission. Preliminary kb diagnosis is Cellulitis of right upper limb. Bed requested for Telemetry/MedSurg (Inpatient). Status is Inpatient Admission. Condition is Stable. Problem is new. Symptoms are unchanged. UTI on Admission? No. kb 21:21 21:18 Constitutional: This is a well developed, well nourished patient who is awake, kb alert, and in no acute distress. Head/Face: Normocephalic, atraumatic. ENT: Nares patent. No nasal discharge, no septal abnormalities noted. Tympanic membranes are normal and external auditory canals are clear. Oropharynx with no redness, swelling, or masses, exudates, or evidence of obstruction, uvula midline. Mucous membranes moist. Neck: Trachea midline, no thyromegaly or masses palpated, and no cervical lymphadenopathy. Supple, full range of motion without nuchal rigidity, or vertebral point tenderness. No Meningismus. Chest/axilla: Normal chest wall appearance and motion. Nontender with no deformity. No lesions are appreciated. Cardiovascular: Regular rate and rhythm with a normal S1 and S2. No gallops, murmurs, or rubs. Normal PMI, no JVD. No pulse deficits. Respiratory: Lungs have equal breath sounds bilaterally, clear to auscultation and percussion. No rales, rhonchi or wheezes noted. No increased work of breathing, no retractions or nasal flaring. Abdomen/GI: Soft, non-tender, with normal bowel sounds. No distension or tympany. No guarding or rebound. No evidence of tenderness throughout. Neuro: Awake and alert, GCS 15, oriented to person, place, time, and situation. Cranial nerves II-XII grossly intact. Motor strength 5/5 in all extremities. Sensory grossly intact. Cerebellar exam normal. Normal gait. 21:22 21:20 Constitutional: Negative for fever, chills, and weight loss, ENT: Negative for kb injury, pain, and discharge, Neck: Negative for injury, pain, and swelling, Cardiovascular: Negative for chest pain, palpitations, and edema, Respiratory: Negative for shortness of breath, cough, wheezing, and pleuritic chest pain, Abdomen/GI: Negative for abdominal pain, nausea, vomiting, diarrhea, and constipation, Back: Negative for injury and pain, Neuro: Negative for headache, weakness, numbness, tingling, and seizure, 08/16 00:08 08/15 20:32 08/15/2019 20:15 Hospitalization Ordered by Mary Wang MD for Inpatient cg Admission. Preliminary diagnosis is Cellulitis of right upper limb; Urinary tract infection, site not specified. Bed requested for Telemetry/MedSurg (Inpatient). Status is Inpatient Admission. Condition is Stable. Problem is new. Symptoms are unchanged. UTI on Admission? Yes. 08/16 02:26 00:08 08/15/2019 20:15 Hospitalization Ordered by Mary Wang MD for Inpatient vc Admission. Preliminary diagnosis is Cellulitis of right upper limb; Urinary tract infection, site not specified. Bed requested for Telemetry/MedSurg (Inpatient). Status is Inpatient Admission. Condition is Stable. Problem is new. Symptoms are unchanged. UTI on Admission? Yes. cg
[2019-08-15] MEDS ORDERED: NITROFURAN MACRO 100 MG CAP PO ONE (20:49)
[2019-08-15] MEDS ORDERED: NA CHLORIDE 0.9% 1,000 ML ONE (20:49)
[2019-08-15 21:00] LABS: Urine Bacteria LOADED /HPF (<20); Urine Culture Reflex Order NOT NEEDED; Urine RBC <5 /HPF (NONE SEEN); Urine Urothelial Cells <5 /HPF (NONE SEEN)
[2019-08-15 21:00] LABS: Urine Blood 2+ (NEG); Urine Glucose NEGATIVE (NEG); Urine Protein 3+ (NEG); Urine Specific Gravity 1.025 (1.005-1.030)
[2019-08-15 21:29] LABS: Platelet Estimate ADEQ; Urine White Blood Cell Casts OK
[2019-08-15 21:30] LABS: Blood Morphology Comment NOT SEEN (NOT SEEN)
[2019-08-15] MEDS ORDERED: IBUPROFEN 200 MG TAB PO ONE (21:34)
[2019-08-15] MEDS ORDERED: ONDANSETRON 4 MG/2 ML VIAL IV PRN (21:38)
[2019-08-15] MEDS ORDERED: MORPHINE 4 MG/ML SYR IV PRN (21:38)
[2019-08-16 02:08] LABS: Barbiturates NEGATIVE (NEGATIVE); Benzodiazepines NEGATIVE (NEGATIVE); Cocaine NEGATIVE (NEGATIVE); METHAMPHETAM NEGATIVE (NEGATIVE); Methadone NEGATIVE (NEGATIVE); Opiates NEGATIVE (NEGATIVE); Phencyclidine NEGATIVE (NEGATIVE); THC Cannibis NEGATIVE (NEGATIVE)
[2019-08-16 02:53] VITALS: BMI 20.9
[2019-08-16] MEDS: Levofloxacin 750mg IV 750 MG/150 ML BAG IV SCH (03:45)
[2019-08-16] MEDS: NA CHLORIDE 0.9% 1,000 ML IV SCH ×3 (03:45→22:34)
[2019-08-16] MEDS ORDERED: VANCOMYCIN/NS 1 gm 1 GM/250 ML BAG IVPB SCH (04:00)
[2019-08-16 04:17] LABS: Absolute Lymphocytes (CBC) 1.3 K/uL (0.7-4.9); Basophils % 0.5 % (0-1.3); Hematocrit 32.3 % (36.0-45.0); Lymphocytes % 11.2 % (15.3-44.8); MPV 8.7 fL (7.6-11.3); Protime INR 1.2; RBC Red Blood Cell Count 3.43 M/uL (3.86-4.86)
[2019-08-16 04:27] LABS: Potassium 3.3 mmol/L (3.5-5.1)
[2019-08-16] MEDS ORDERED: VANCOMYCIN 1 GM/VIAL ONE (05:15)
[2019-08-16] MEDS ORDERED: NA CHLORIDE 0.9% 250 ML ONE (06:11)
[2019-08-16] MEDS: FENTANYL CITR 100 MCG/2 ML IV PRN ×2 (07:30→11:41)
[2019-08-16] MEDS ORDERED: NA CHLORIDE 0.9% 500 ML IV ONE (07:35)
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
--- NOTE | 2019-08-16 09:15 | RAD REPORT ---
EXAM DESCRIPTION: CT - Upper Extremity W/ Cont - 08/16/2019 8:56 am CLINICAL HISTORY: Arm swelling and pain COMPARISON: None. TECHNIQUE: Computed axial tomography of the right arm obtained. 50 cc Isovue-300 administered intrav enously. Coronal and sagittal reconstruction All CT scans are performed using dose optimization technique as appropriate and may include automated exposure control or mA/KV adjustment according to patient size. FINDINGS: Edema is present within predominately the dorsal subcutaneous tissues of the upper elbow e xtending into the forearm. An abscess is not visualized. No bony destructive lesion noted. IMPRESSION: Cellulitis involving the right arm.
[2019-08-16] MEDS ORDERED: INFLUENZA VACCINE (for 3y+) 0.5 ML DOSE IMVAC ONE (10:00)
[2019-08-16] MEDS: ACETAMINOPHEN 500 MG TAB PO PRN ×2 (16:28→22:50)
[2019-08-16] MEDS: HYDROMORPHONE HCL 1 MG/ML INJ IV PRN ×2 (16:34→22:35)
[2019-08-16] MEDS: VANCOMYCIN/NS 1 gm 1 GM/250 ML BAG IVPB SCH (22:29)
[2019-08-17] MEDS: Levofloxacin 750mg IV 750 MG/150 ML BAG IV SCH (02:13)
[2019-08-17] MEDS: HYDROMORPHONE HCL 1 MG/ML INJ IV PRN ×4 (06:30→20:59)
[2019-08-17] MEDS: ACETAMINOPHEN 500 MG TAB PO PRN (06:37)
[2019-08-17] MEDS: VANCOMYCIN/NS 1 gm 1 GM/250 ML BAG IVPB SCH (16:41)
[2019-08-17] MEDS ORDERED: HYDROCORTISONE SUC 100 MG INJ IV ONE (18:16)
[2019-08-17] MEDS: NICOTINE 21 MG/PAT TD SCH (22:43)
[2019-08-18] MEDS: Levofloxacin 750mg IV 750 MG/150 ML BAG IV SCH (01:46)
[2019-08-18] MEDS: HYDROMORPHONE HCL 1 MG/ML INJ IV PRN ×4 (01:59→14:35)
[2019-08-18] MEDS ORDERED: HYDROCORTISONE SUC 100 MG INJ IV ONE (03:42)
[2019-08-18] MEDS ORDERED: DIPHENHYDRAMINE 50 MG/ML VIAL IV ONE (03:43)
[2019-08-18 07:35] LABS: ALT/SGPT 117 U/L (12-78); AST/SGOT 30 U/L (15-37); Albumin 2.4 g/dL (3.4-5.0); Alkaline Phosphatase 157 U/L (45-117); BUN Blood Urea Nitrogen 9 mg/dL (7-18); Bicarbonate 27 mmol/L (21-32); Bilirubin Total 0.5 mg/dL (0.2-1.0); Creatine Phosphokinase 37 U/L (26-192); Glucose Level 131 mg/dL (74-106); Potassium 3.4 mmol/L (3.5-5.1); Protein, Total 6.4 g/dL (6.4-8.2); Sodium Level 137 mmol/L (136-145)
[2019-08-18 07:45] LABS: Absolute Lymphocytes (CBC) 0.7 K/uL (0.7-4.9); Basophils % 0.2 % (0-1.3); Hematocrit 26.4 % (36.0-45.0); Lymphocytes % 4.2 % (15.3-44.8); MPV 8.9 fL (7.6-11.3); RBC Red Blood Cell Count 2.84 M/uL (3.86-4.86)
[2019-08-18 07:48] LABS: Protime INR 1.22
[2019-08-18 08:40] LABS: Blood Morphology Comment NOT SEEN (NOT SEEN); Platelet Estimate ADEQ
--- NOTE | 2019-08-18 08:55 | P.PN ---
Subjective Date of Service: 08/16/19 Subjective: No new changes, Other (Patient still having significant pain in the right arm. CT of the right upper extremity is pending) Review of Systems 10-point ROS is otherwise unremarkable Physical Examination - Vital Signs Temperature: 97.4 F Blood Pressure: 103/60 Pulse: 75 Respirations: 18 Pulse Ox (%): 98 - Physical Exam General: Alert, In no apparent distress, Oriented x3 Respiratory: Clear to auscultation bilaterally, Normal air movement Cardiovascular: Regular rate/rhythm, Normal S1 S2 Gastrointestinal: Normal bowel sounds, Soft and benign, Non-distended, No tenderness Musculoskeletal: No clubbing, No swelling, No tenderness Neurological: Normal tone, Sensation intact, Cranial nerves 3-12 intact, Normal affect - Studies Microbiology Data (last 24 hrs): 08/15/19 20:36 Clean Catch Urine [place] Count - Final >100,000 CFU/ML. 08/15/19 20:36 Clean Catch Urine - Final Escherichia Coli Medications List Reviewed: Yes Assessment & Plan - Problems (Diagnosis) (1) Cellulitis of right upper extremity Current Visit: Yes Status: Acute (2) History of drug abuse Current Visit: Yes Status: Acute - Plan Continue with current plan of care as mentioned 1. Continue with IV antibiotic 2. Continue with local wound care 3. Wound care consultation/ID consultation 4. Gentle IV hydration 5. Monitor CBC 6. Strict blood sugar monitoring 7. Pain control 8. GI and DVT prophylaxis Discharge Plan: Home Plan to discharge in: Greater than 2 days - Advance Directives Does patient have a Living Will: No Does patient have a Durable POA for Healthcare: No - Code Status/Comfort Care Code Status: Full Code Critical Care: No Time Spent Managing PTS Care (In Minutes): 30
--- NOTE | 2019-08-18 08:58 | P.PN ---
Date of Service: 08/17/19 Subjective Subjective: No new changes, Other (Patient still having significant pain in the right arm. CT of the right upper extremity is pending) Review of Systems 10-point ROS is otherwise unremarkable Physical Examination - Vital Signs reviewed - Physical Exam General: Alert, In no apparent distress, Oriented x3 Respiratory: Clear to auscultation bilaterally, Normal air movement Cardiovascular: Regular rate/rhythm, Normal S1 S2 Gastrointestinal: Normal bowel sounds, Soft and benign, Non-distended, No tenderness Musculoskeletal: Significant pain in cellulitis of the right upper extremity extends from the bicep elbow and to the forearm and wrist Neurological: Normal tone, Sensation intact, Cranial nerves 3-12 intact, Normal affect Assessment & Plan - Problems (Diagnosis) (1) Cellulitis of right upper extremity Current Visit: Yes Status: Acute (2) History of drug abuse Current Visit: Yes Status: Acute - Plan Continue with current plan of care as mentioned 1. Continue with IV antibiotic 2. Continue with keeping right upper extremity elevated 3. Hand surgery consultation 4. Hep-Lock IV 5. Monitor CBC 6. Strict blood sugar monitoring 7. Pain control 8. GI and DVT prophylaxis
[2019-08-18] MEDS: VANCOMYCIN/NS 1 gm 1 GM/250 ML BAG IVPB SCH ×2 (09:54→21:00)
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
--- NOTE | 2019-08-18 15:45 | P.PN ---
Subjective Date of Service: 08/18/19 Primary Care Provider: None Chief Complaint: Right upper extremity cellulitis Subjective: Improving Physical Examination - Vital Signs Temperature: 97.3 F Blood Pressure: 97/53 Pulse: 78 Respirations: 18 Pulse Ox (%): 98 - Physical Exam General: Alert HEENT: Atraumatic Neck: Supple Respiratory: Clear to auscultation bilaterally, Normal air movement Cardiovascular: Normal pulses, Regular rate/rhythm Integumentary: Other (Upper extremity edema noted.) - Studies Medications List Reviewed: Yes Assessment & Plan Discharge Plan: Home Plan to discharge in: 24 Hours Physician Review Additional Text: Impression: Right upper extremity cellulitis with history of IV drug use. UTI, urine culture positive for E coli Tobacco abuse Plan: Right upper extremity cellulitis with history of IV drug use: Continue IV antibiotic therapy-Levaquin and vancomycin. Will transition off IV pain medication. Will provide medication for pain. Plastic surgery has evaluated patient. No surgical intervention required. White count remains elevated but pro calcitonin negative. Anticipate discharge in the next 1-2 days with clinical improvement. UTI, urine culture positive for E coli: Will continue with antibiotic therapy. Will transition Levaquin to oral medication. Tobacco abuse: Will provide nicotine patch. Encourage cessation education. Time Spent Managing Pts Care (In Minutes): 55
[2019-08-18] MEDS: HYDROCODONE/APAP 7.5/325 MG TAB PO PRN (18:54)
[2019-08-18] MEDS ORDERED: FLUCONAZOLE 100mg IVPB 100 MG/50 ML BAG IV SCH (19:00)
[2019-08-18] MEDS ORDERED: FLUCONAZOLE 200mg IVPB 200 MG/100 ML BAG IV ONE (20:47)
[2019-08-18] MEDS: LACTOBACILLUS/ACIDOPHILUS TAB PO SCH (20:54)
[2019-08-18] MEDS: FLUCONAZOLE 200mg IVPB 100 MG/50 ML BAG IV SCH (20:54)
[2019-08-18] MEDS ORDERED: MICONAZOLE 7 APPL/48 GM TUBE VAG SCH (21:00)
[2019-08-19] MEDS: HYDROCODONE/APAP 7.5/325 MG TAB PO PRN ×3 (03:41→18:43)
[2019-08-19 06:02] LABS: Absolute Lymphocytes (CBC) 2.6 K/uL (0.7-4.9); Basophils % 0.5 % (0-1.3); Lymphocytes % 18.9 % (15.3-44.8); RBC Red Blood Cell Count 2.78 M/uL (3.86-4.86)
[2019-08-19 06:11] LABS: BUN Blood Urea Nitrogen 13 mg/dL (7-18); Bicarbonate 30 mmol/L (21-32); Glucose Level 94 mg/dL (74-106); Magnesium 1.8 mg/dL (1.8-2.4); Potassium 3.5 mmol/L (3.5-5.1); Sodium Level 143 mmol/L (136-145)
[2019-08-19] MEDS ORDERED: MAGNESIUM SULFATE 1 gm IVPB 1 GM/100 ML BAG IV ONE (08:00)
[2019-08-19] MEDS: NICOTINE 21 MG/PAT TD SCH (08:25)
[2019-08-19] MEDS: levoFLOXacin 500 MG TAB PO SCH (08:26)
[2019-08-19] MEDS: LACTOBACILLUS/ACIDOPHILUS TAB PO SCH ×2 (08:26→21:03)
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
[2019-08-19] MEDS: VANCOMYCIN/NS 1 gm 1 GM/250 ML BAG IVPB SCH ×3 (09:36→23:31)
--- NOTE | 2019-08-19 13:43 | P.PN ---
Date of Service: 08/19/19 Subjective Subjective: Patient continues to improve; pain is minimal; increased ROM Review of Systems 10-point ROS is otherwise unremarkable Physical Examination - Vital Signs reviewed - Physical Exam General: Alert, In no apparent distress, Oriented x3 Respiratory: Clear to auscultation bilaterally, Normal air movement Cardiovascular: Regular rate/rhythm, Normal S1 S2 Gastrointestinal: Normal bowel sounds, Soft and benign, Non-distended, No tenderness Musculoskeletal: Significant pain in cellulitis of the right upper extremity extends from the bicep elbow and to the forearm and wrist Neurological: Normal tone, Sensation intact, Cranial nerves 3-12 intact, Normal affect Assessment & Plan - Problems (Diagnosis) (1) Cellulitis of right upper extremity Current Visit: Yes Status: Acute (2) History of drug abuse Current Visit: Yes Status: Acute - Plan Continue with current plan of care as mentioned 1. Continue with IV antibiotic 2. Continue with keeping right upper extremity elevated 3. Hand surgery consultation appreciated 4. Hep-Lock IV 5. Monitor CBC 6. Strict blood sugar monitoring 7. Pain control 8. Anticipate DC later today or in the AM 9. GI and DVT prophylaxis
[2019-08-19] MEDS: MORPHINE 2 MG/ML SYR IV PRN ×2 (15:43→21:01)
--- NOTE | 2019-08-19 18:27 | RAD REPORT ---
EXAM DESCRIPTION: MRI - Upper Extremity Wo Con - 08/19/2019 5:01 pm CLINICAL HISTORY: Arm swelling and pain COMPARISON: July cat scan TECHNIQUE: Axial, sagittal and coronal magnetic resonance imaging of right elbow was obtained. Axial coronal images of the right forearm obtained. Patient refused to have images of upper arm. Contrast was not requested FINDINGS: Extensive edema is present throughout the subcutaneous tissues of the forearm and elbow. T1 weighted sequences demonstrate increased signal within the brachioradialis muscle just above the e lbow measuring 2.3 centimeters. This probably represents hemorrhage No abnormal signal within the bones to suggest osteomyelitis. A soft tissue abscess is not seen. Small to moderate elbow joint effusion IMPRESSION: Extensive cellulitis involving of the forearm and elbow. Small amount of hemorrhage within the brachioradialis muscle just above the elbow
[2019-08-19] MEDS: FLUCONAZOLE 200mg IVPB 100 MG/50 ML BAG IV SCH (21:00)
[2019-08-19] MEDS: MICONAZOLE 7 APPL/48 GM TUBE VAG SCH (21:02)
[2019-08-20] MEDS ORDERED: DIPHENHYDRAMINE 50 MG/ML VIAL IV ONE (02:03)
[2019-08-20] MEDS ORDERED: HYDROCORTISONE SUC 100 MG INJ IV ONE (02:03)
[2019-08-20 04:57] LABS: Magnesium 1.8 mg/dL (1.8-2.4); Potassium 3.8 mmol/L (3.5-5.1)
[2019-08-20 05:46] LABS: Absolute Lymphocytes (CBC) 1.4 K/uL (0.7-4.9); Basophils % 0.6 % (0-1.3); Hematocrit 27.3 % (36.0-45.0); Lymphocytes % 9.4 % (15.3-44.8); MPV 8.2 fL (7.6-11.3); RBC Red Blood Cell Count 2.97 M/uL (3.86-4.86)
[2019-08-20] MEDS: MORPHINE 2 MG/ML SYR IV PRN ×3 (07:28→20:49)
[2019-08-20] MEDS ORDERED: MAGNESIUM SULFATE 1 gm IVPB 1 GM/100 ML BAG IV ONE (09:00)
--- NOTE | 2019-08-20 09:25 | PN ---
The patient is better today. We drained the abscess of the right cheek. She has swelling has decreased. erythema of her breasts, left greater than right and also her lower abdominal wall persist. SANTIAGO/JERI Voice ID: [id number] Report ID: [id number] MTDD
[2019-08-20] MEDS: VANCOMYCIN/NS 1 gm 1 GM/250 ML BAG IVPB SCH ×2 (10:34→22:17)
[2019-08-20] MEDS: NICOTINE 21 MG/PAT TD SCH (10:35)
[2019-08-20] MEDS: levoFLOXacin 500 MG TAB PO SCH (10:35)
[2019-08-20] MEDS: LACTOBACILLUS/ACIDOPHILUS TAB PO SCH ×2 (10:35→20:49)
[2019-08-20] MEDS: HYDROCODONE/APAP 7.5/325 MG TAB PO PRN ×2 (10:40→22:24)
--- NOTE | 2019-08-20 10:40 | PN ---
Ms. Tolentino underwent a scan of her right upper extremity. Swelling in the brachioradialis area and cellulitis of the elbow . I will continue elevation. She is discharged home. SANTIAGO/JERI Voice ID: [id number] Report ID: [id number] MTDD
--- NOTE | 2019-08-20 14:38 | P.PN ---
Subjective Date of Service: 08/20/19 Primary Care Provider: None Chief Complaint: Right upper extremity cellulitis Subjective: Improving, Doing well Physical Examination - Vital Signs Temperature: 97.3 F Blood Pressure: 106/65 Pulse: 77 Respirations: 16 Pulse Ox (%): 97 - Physical Exam General: Alert, In no apparent distress, Oriented x3 HEENT: Atraumatic Neck: Supple Respiratory: Clear to auscultation bilaterally Cardiovascular: Normal pulses, Regular rate/rhythm Musculoskeletal: Other (Right upper extremity shows improvement. Less swelling noted.) - Studies Medications List Reviewed: Yes Assessment & Plan Discharge Plan: Home Plan to discharge in: 24 Hours Physician Review Additional Text: Impression: Right upper extremity cellulitis with history of IV drug use. UTI, urine culture positive for E coli Tobacco abuse Plan: Right upper extremity cellulitis with history of IV drug use: MRI reviewed. Continue antibiotic therapy. Improvement noted. Case discussed with orthopedics. No septic arthritis noted. No need for aspiration of fluid. Likely 1 more day of antibiotic therapy then possible discharge tomorrow. UTI, urine culture positive for E coli: Will continue with antibiotic therapy. Will transition Levaquin to oral medication. Patient also given antifungal Tobacco abuse: Will provide nicotine patch. Encourage cessation education. Time Spent Managing Pts Care (In Minutes): 55
--- NOTE | 2019-08-20 15:25 | CON ---
Reason For Consultation: Cellulitis involving forearm and elbow. History Of Present Illness: Ms. Tolentino has been in the hospital since August 15. She is being ma naged with intravenous antibiotics. She has been under the care of Dr. Wang and Dr. Salcedo. She has extensive cellulitis involving the forearm. We were asked to evaluate her from orthopedic standp oint, reviewing the MRI scan reveals that she has no suggestion of osteomyelitis, very small elbow sammy int effusion. It is unlikely that this is a septic joint. Her white count has been elevated. The s tudy did show that there is an extensive soft tissue involvement in the upper extremity. From an ort hopedic standpoint, this does not appear to be solely within the realm of orthopedic surgery. The sammy int appears to be normal. Assessment: Effusion is quite small. There is study of circumferential cellulitic change. I sugges t management with the plastic surgery services and the intravenous antibiotics. CAMERON/JERI Voice ID: [id number] Report ID: [id number]
[2019-08-20] MEDS: FLUCONAZOLE 200mg IVPB 100 MG/50 ML BAG IV SCH (20:46)
[2019-08-20] MEDS: MICONAZOLE 7 APPL/48 GM TUBE VAG SCH (20:51)
[2019-08-21] MEDS: TEMAZEPAM 15 MG CAP PO PRN (00:03)
[2019-08-21] MEDS ORDERED: FUROSEMIDE 20 MG/ 2ML VIAL IV ONE (01:33)
[2019-08-21] MEDS ORDERED: ALBUMIN HUMAN 25% 100 ML IV ONE (01:33)
[2019-08-21] MEDS: MORPHINE 2 MG/ML SYR IV PRN ×3 (02:07→17:52)
[2019-08-21 05:48] LABS: Absolute Lymphocytes (CBC) 2.5 K/uL (0.7-4.9); Basophils % 0.8 % (0-1.3); Hematocrit 28.5 % (36.0-45.0); Lymphocytes % 18.6 % (15.3-44.8); MPV 7.2 fL (7.6-11.3); RBC Red Blood Cell Count 3.08 M/uL (3.86-4.86)
[2019-08-21 06:22] LABS: BUN Blood Urea Nitrogen 11 mg/dL (7-18); Bicarbonate 18 mmol/L (21-32); Glucose Level 92 mg/dL (74-106); Magnesium 2.1 mg/dL (1.8-2.4); Potassium 3.6 mmol/L (3.5-5.1); Sodium Level 140 mmol/L (136-145)
[2019-08-21] MEDS: NICOTINE 21 MG/PAT TD SCH (08:30)
[2019-08-21] MEDS: LACTOBACILLUS/ACIDOPHILUS TAB PO SCH ×2 (08:31→21:17)
[2019-08-21] MEDS: HYDROCODONE/APAP 7.5/325 MG TAB PO PRN ×2 (08:31→21:17)
[2019-08-21] MEDS: levoFLOXacin 500 MG TAB PO SCH (08:31)
[2019-08-21] MEDS: VANCOMYCIN/NS 1 gm 1 GM/250 ML BAG IVPB SCH ×2 (09:46→22:38)
--- NOTE | 2019-08-21 10:31 | P.PN ---
Subjective Date of Service: 08/21/19 Primary Care Provider: None Chief Complaint: Right upper extremity cellulitis Subjective: Improving (Improving slowly. Swelling improved. Still warm to touch.) Physical Examination - Vital Signs Temperature: 97.3 F Blood Pressure: 123/70 Pulse: 91 Respirations: 16 Pulse Ox (%): 98 - Physical Exam General: Alert, In no apparent distress, Oriented x3 HEENT: Atraumatic Neck: Supple Respiratory: Clear to auscultation bilaterally, Normal air movement Cardiovascular: Normal pulses, Regular rate/rhythm Gastrointestinal: Normal bowel sounds, Soft and benign, Non-distended Integumentary: Other (Swelling to the right upper extremity improved. Still warm to touch. Patient trying to elevate arm.) Neurological: Normal speech, Normal strength at 5/5 x4 extr, Normal tone - Studies Microbiology Data (last 24 hrs): 08/15/19 19:33 Blood - Blood Aerobic Blood Culture - Final No growth in 5 days. 08/15/19 19:33 Blood - Blood Anaerobic Blood Culture - Final No growth in 5 days. 08/15/19 19:11 Blood - Blood Aerobic Blood Culture - Final No growth in 5 days. 08/15/19 19:11 Blood - Blood Anaerobic Blood Culture - Final No growth in 5 days. Medications List Reviewed: Yes Assessment & Plan Discharge Plan: Home Plan to discharge in: 24 Hours Physician Review Additional Text: Impression: Right upper extremity cellulitis with history of IV drug use. UTI, urine culture positive for E coli Vaginal yeast infection Tobacco abuse Plan: Right upper extremity cellulitis with history of IV drug use: MRI reviewed. Continue IV antibiotic therapy. Patient has slowly improved. Orthopedics recommended no intervention. Continue to elevate arm as best possible. Will apply ice packs to help with swelling. Anticipate 1-2 more days of IV antibiotic therapy. Likely discharge once clinically improved. Patient will require dual antibiotic therapy-Levaquin/doxycycline to cover UTI and cellulitis. I will turn the service over to the hospitalist team tomorrow. I will go over the plan of care with him. UTI, urine culture positive for E coli: Will continue with antibiotic therapy. Will transition Levaquin to oral medication once cellulitis improved. Patient also given antifungal for yeast infection Vaginal yeast infection: Continue with antifungal Tobacco abuse: Will provide nicotine patch. Encourage cessation education. Time Spent Managing Pts Care (In Minutes): 55
--- NOTE | 2019-08-21 10:55 | PN ---
The swelling is going down, seems to be more localizing to the right lateral elbow, actually below th e elbow. The MRI scan showed fluid collection near the brachioradialis. She is still having pain, n ot fully straightening secondary to pain. Plan: Continue elevation. This may need to be explored. SANTIAGO/JERI Voice ID: [id number] Report ID: [id number]
[2019-08-21] MEDS: FLUCONAZOLE 200mg IVPB 100 MG/50 ML BAG IV SCH (21:00)
[2019-08-21] MEDS: MICONAZOLE 7 APPL/48 GM TUBE VAG SCH (21:00)
[2019-08-22] MEDS: MORPHINE 2 MG/ML SYR IV PRN ×4 (01:23→21:02)
[2019-08-22] MEDS: HYDROCODONE/APAP 7.5/325 MG TAB PO PRN ×3 (06:45→20:04)
[2019-08-22 07:52] VITALS: O2SAT 99
[2019-08-22] MEDS: levoFLOXacin 500 MG TAB PO SCH (08:11)
[2019-08-22] MEDS: LACTOBACILLUS/ACIDOPHILUS TAB PO SCH ×2 (08:11→20:05)
[2019-08-22] MEDS: NICOTINE 21 MG/PAT TD SCH (08:11)
--- NOTE | 2019-08-22 08:15 | PN ---
The patient is still complaining of pain in the right upper arm, that is in the forearm. She is able to fully extend and flex the fingers. She states she has numbness in the thumb, index, middle, pres sure on the forearm and she has some pain. She has improved from yesterday. I still want to get an MRI scan of her right upper extremity to make sure there is no fluid collection on inspection. SANTIAGO/JERI Voice ID: [id number] Report ID: [id number]
[2019-08-22] MEDS: VANCOMYCIN/NS 1 gm 1 GM/250 ML BAG IVPB SCH ×2 (09:29→21:55)
--- NOTE | 2019-08-22 13:34 | P.PN ---
Subjective Date of Service: 08/22/19 Primary Care Provider: None Chief Complaint: Right upper extremity cellulitis Subjective: No new changes (For acute events Overnite. Patient is afebrile. She still has right upper extremity swelling from the elbow down to the hand.) Physical Examination - Vital Signs Temperature: 97.0 F Blood Pressure: 105/60 Pulse: 74 Respirations: 16 Pulse Ox (%): 100 - Physical Exam General: Alert (Alert and awake. Comfortable.) HEENT: Atraumatic (Head atraumatic, normocephalic. EOM intact.) Respiratory: Clear to auscultation bilaterally (Lungs are clear to auscultation bilaterally without wheezing or crackles.) Cardiovascular: No edema (Right upper extremity edema and erythema from elbow down to right hand) Gastrointestinal: Normal bowel sounds (Abdomen soft, nontender, nondistended. Bowel sounds are present.) Musculoskeletal: No clubbing (Limited range of motion. The right upper extremity.) Neurological: Normal gait (Grossly intact) - Studies Medications List Reviewed: Yes Assessment & Plan Physician Review Additional Text: Impression: Right upper extremity cellulitis with history of IV drug use. UTI, urine culture positive for E coli Vaginal yeast infection Tobacco abuse Plan: Right upper extremity cellulitis with history of IV drug use: Patient on IV antibiotics for the past week. No significant improvement reported by patient. Surgery to review MRI of forearm and decide on possible I and D if indicated. Antibiotic duration to be determined based on surgical plan. Patient is currently on vancomycin and levofloxacin. UTI, urine culture positive for E coli: Continue levofloxacin. Vaginal yeast infection: Patient is currently on fluconazole and miconazole Tobacco abuse: Nicotine patch ordered
[2019-08-22] MEDS: MICONAZOLE 7 APPL/48 GM TUBE VAG SCH (20:06)
[2019-08-22] MEDS: FLUCONAZOLE 200mg IVPB 100 MG/50 ML BAG IV SCH ×2 (20:11→20:19)
[2019-08-23] MEDS: HYDROCODONE/APAP 7.5/325 MG TAB PO PRN ×3 (03:38→18:32)
[2019-08-23 04:36] LABS: Absolute Lymphocytes (CBC) 3.4 K/uL (0.7-4.9); Basophils % 0.7 % (0-1.3); Hematocrit 28.7 % (36.0-45.0); Lymphocytes % 28.1 % (15.3-44.8); MPV 6.8 fL (7.6-11.3); RBC Red Blood Cell Count 3.07 M/uL (3.86-4.86)
[2019-08-23 04:56] LABS: Magnesium 2.1 mg/dL (1.8-2.4); Potassium 4.3 mmol/L (3.5-5.1)
[2019-08-23 05:20] LABS: Blood Morphology Comment NOT SEEN (NOT SEEN); Platelet Estimate ADEQ
[2019-08-23] MEDS: MORPHINE 2 MG/ML SYR IV PRN (06:18)
--- NOTE | 2019-08-23 08:22 | PN ---
Subjective: Patient is lying in bed. Denies any headache, nausea, vomiting, chest pain, abdominal p ain, constipation, or diarrhea. Objective: Vital Signs: Temperature 97, pulse 94, respirations 14, blood pressure 105/60. Lungs: Basal crackles. Heart: S1, S2. Regular. Abdomen: Soft, nontender. Bowel sounds present. Extremities: Right arm with erythematous changes, improving. Medications: Currently, on Levaquin and vancomycin. Laboratory Data: WBC is still elevated, yesterday at 13.7; hemoglobin 9.8; platelets are 525. Chemi stry shows sodium 140, potassium 3.6, chloride 102, bicarb 18, BUN 11, creatinine 0.69, glucose 92. Microbiology Data: Urine cultures positive for E coli. Blood cultures are negative over 5 days. Assessment And Plan: Right upper extremity cellulitis, urinary tract infection secondary to Escheric hia coli, currently being treated with Levaquin and vancomycin. Continue Levaquin, total of 2 weeks. We will follow patient as needed. NF/MODL Voice ID: [id number] Report ID: [id number]
[2019-08-23] MEDS: NICOTINE 21 MG/PAT TD SCH (09:00)
[2019-08-23] MEDS: LACTOBACILLUS/ACIDOPHILUS TAB PO SCH ×2 (09:14→21:36)
[2019-08-23] MEDS: levoFLOXacin 500 MG TAB PO SCH (09:15)
[2019-08-23] MEDS: VANCOMYCIN/NS 1 gm 1 GM/250 ML BAG IVPB SCH (09:17)
--- NOTE | 2019-08-23 11:42 | P.PN ---
Subjective Date of Service: 08/23/19 Primary Care Provider: None Chief Complaint: Right upper extremity cellulitis Subjective: No new changes, Ambulating Physical Examination - Vital Signs Temperature: 97.3 F Blood Pressure: 107/51 Pulse: 78 Respirations: 16 Pulse Ox (%): 100 - Physical Exam General: Alert, In no apparent distress, Cooperative HEENT: Atraumatic, Normocephalic, EOMI Neck: Supple Respiratory: Clear to auscultation bilaterally, Normal air movement Cardiovascular: No edema, Normal pulses, Regular rate/rhythm, Normal S1 S2 Gastrointestinal: Normal bowel sounds, Soft and benign, Non-distended Musculoskeletal: Swelling, Erythema, Tenderness Neurological: Normal gait, Normal strength at 5/5 x4 extr (Right upper extremity with edema and erythema. Restricted range of motion.), Normal tone, Normal affect - Studies Medications List Reviewed: Yes Assessment & Plan Physician Review Additional Text: Impression: Right upper extremity cellulitis with history of IV drug use. UTI, urine culture positive for E coli Vaginal yeast infection Tobacco abuse Plan: Right upper extremity cellulitis with history of IV drug use: Patient on IV antibiotics for the past week. No significant improvement reported by patient. Surgery to review MRI of forearm and decide on possible I and D if indicated. Surgery yet to physically re-evaluate the patient since patient was not in her home earlier today when surgery came at bedside. Antibiotic duration to be determined based on surgical plan and intraoperative findings. Patient is currently on vancomycin and levofloxacin. Infectious is also on board. UTI, urine culture positive for E coli: Continue levofloxacin. Vaginal yeast infection: Patient was previously on fluconazole and miconazole. Fluconazole discontinued on 08/23/2019 Tobacco abuse: Nicotine patch on board
[2019-08-23] MEDS: TRAMADOL HCL 50 MG TAB PO PRN ×2 (13:42→21:37)
--- NOTE | 2019-08-23 16:31 | PN ---
Her swelling has gone down remarkably for the first time. The upper arm looks normal. The forearm is still swollen, but now the skin is loose . Plan discharge plan. SANTIAGO/JERI Voice ID: [id number] Report ID: [id number] MTDD
[2019-08-23] MEDS: TEMAZEPAM 15 MG CAP PO PRN (21:36)
[2019-08-23] MEDS: MICONAZOLE 7 APPL/48 GM TUBE VAG SCH (21:37)
[2019-08-24] MEDS: HYDROCODONE/APAP 7.5/325 MG TAB PO PRN ×2 (03:11→08:11)
[2019-08-24 04:15] LABS: Absolute Lymphocytes (CBC) 3.6 K/uL (0.7-4.9); Basophils % 0.7 % (0-1.3); Hematocrit 30.9 % (36.0-45.0); Lymphocytes % 29.7 % (15.3-44.8); MPV 6.7 fL (7.6-11.3); RBC Red Blood Cell Count 3.27 M/uL (3.86-4.86)
--- NOTE | 2019-08-24 07:55 | PN ---
Subjective: Patient lying in bed. No new acute event. Chart reviewed. Objective: Vital Signs: Temperature 97, pulse 83, respirations 14, blood pressure 133/58. No new c hanges in examination. Laboratory Data: Shows WBC , hemoglobin 9.8, platelets 604. Currently being treated with Levaquin and vancomycin. The patient's cultures are growing E coli in the urine. Plan: Patient can be discharged on Levaquin for a total course of 2 weeks. We will follow the patie nt as needed. NF/MODL Voice ID: [id number] Report ID: [id number]
[2019-08-24] MEDS: LACTOBACILLUS/ACIDOPHILUS TAB PO SCH (07:59)
[2019-08-24] MEDS: NICOTINE 21 MG/PAT TD SCH (07:59)
[2019-08-24 08:55] VITALS: BP 103/61; TEMP 96.8
[2019-08-24] MEDS ORDERED: levoFLOXacin 500 MG TAB PO SCH (09:00)
--- NOTE | 2019-08-24 09:44 | P.DS ---
Admission Date: 08/15/19 Discharge Date: 08/24/19 Primary Care Provider: None Disposition: ROUTINE DISCHARGE Discharge Condition: GOOD Reason for Admission: Right upper extremity cellulitis - Problems (1) Cellulitis of right upper extremity Current Visit: Yes Status: Acute (2) History of drug abuse Current Visit: Yes Status: Acute Brief History of Present Illness: Patient is a 39-year-old female with a history of IV drug abuse who presented to the hospital with right upper extremity cellulitis. Patient has redness and swelling extending from her elbow down to the right hand. She was treated with levofloxacin. Ortho Hand initially contemplated surgical intervention. However, after review of MRI of right extremity. This plan was abandoned has patient's swelling and inflammation has significantly gone down. Patient's hospital course has been unremarkable. She will be discharged with a 10 day course of levofloxacin as per ID recommendation. Hospital Course: Patient is a 39-year-old female with a history of IV drug abuse who presented to the hospital with right upper extremity cellulitis. Patient has redness and swelling extending from her elbow down to the right hand. She was treated with levofloxacin. Ortho Hand initially contemplated surgical intervention. However, after review of MRI of right extremity. This plan was abandoned has patient's swelling and inflammation has significantly gone down. Patient's hospital course has been unremarkable. She will be discharged with a 10 day course of levofloxacin as per ID recommendation. Vital Signs/Physical Exam: Temp Pulse Resp BP Pulse Ox 96.8 F 86 16 103/61 98 08/24/19 08:00 08/24/19 08:00 08/24/19 08:11 08/24/19 08:00 08/24/19 08:11 General: Alert, In no apparent distress HEENT: Atraumatic, Normocephalic, EOMI Neck: Supple Respiratory: Clear to auscultation bilaterally, Normal air movement Cardiovascular: No edema, Normal pulses, Regular rate/rhythm, Normal S1 S2 Gastrointestinal: Normal bowel sounds, Soft and benign, Non-distended Musculoskeletal: Swelling, Erythema, Tenderness, Warmth Neurological: Normal gait, Normal speech, Normal affect Laboratory Data at Discharge: WBC 12.1 K/uL (4.3-10.9) H 08/24/19 03:48 Hgb 10.5 g/dL (12.0-15.0) L 08/24/19 03:48 Hct 30.9 % (36.0-45.0) L 08/24/19 03:48 Plt Count 728 K/uL (152-406) H D 08/24/19 03:48 PT 14.3 SECONDS (9.5-12.5) H 08/18/19 07:00 INR 1.22 08/18/19 07:00 APTT 32.9 SECONDS (24.3-36.9) 08/18/19 07:00 Sodium 139 mmol/L (136-145) 08/23/19 04:11 Potassium 4.3 mmol/L (3.5-5.1) 08/23/19 04:11 BUN 21 mg/dL (7-18) H 08/23/19 04:11 Creatinine 0.83 mg/dL (0.55-1.3) 08/23/19 04:11 Glucose 92 mg/dL (74-106) 08/23/19 04:11 Magnesium 2.3 mg/dL (1.8-2.4) 08/24/19 03:48 Total Bilirubin 0.5 mg/dL (0.2-1.0) 08/18/19 07:00 AST 30 U/L (15-37) 08/18/19 07:00 ALT 117 U/L (12-78) H 08/18/19 07:00 Alkaline Phosphatase 157 U/L (45-117) H 08/18/19 07:00 Home Medications: NK [No Home Meds] 08/16/19 Patient Discharge Instructions: Follow up with Ortho Hand in 1 week Diet: Regular Activity: Fall precautions Time spent managing pt's care (in minutes): 25
== END 2019-08-24 11:02 | disposition home or self-care (01) | DRG 603 ==
LOC: ER 17:44 → ERHOLD 21:55 → 4TH 08-16 01:54
PROVIDERS: ADMIT Hospitalist; ATTEND Hospitalist
DX: L03.113 Cellulitis of right upper limb (principal); N39.0 Urinary tract infection, site not specified; F19.11 Other psychoactive substance abuse, in remission; B96.20 Unspecified Escherichia coli [E. coli] as the cause of diseases classified elsewhere; B37.3 Candidiasis of vulva and vagina; F17.201 Nicotine dependence, unspecified, in remission; Z23 Encounter for immunization
CPT/HCPCS: 36415; 73201; 73218; 80048; 80053; 80202; 80307; 81003; 81015; 81025; 82550; 83605; 83735; 84145; 85025; 85610; 85730; 87040; 87077; 87086; 87088; 87186; 90471; 96361; 96365; 96375; 99285; J1170; J1200; J1450; J1720; J1940; J2270; J2405; J3010; J3370; J3475; J7030; J7040; P9047; Q2035; Q9967

== ENCOUNTER 2021-05-30 20:09 | Emergency (ER) | payer SELFPAY ==
--- NOTE | 2021-05-30 20:58 | RAD REPORT ---
EXAM DESCRIPTION: CT - Stone Protocol - 05/30/2021 8:38 pm CLINICAL HISTORY: Flank pain. right flank pain COMPARISON: Abdomen Pelvis W Contrast dated 12/11/2017 TECHNIQUE: Axial images were obtained without oral or IV contrast. Lack of contrast limits solid org an and vascular assessment. The [id number] spans the entirety of the system partially obscuring uppermost abdomen and lung bases. Coronal reformatted images were obtained and reviewed. All CT scans are performed using dose optimization technique as appropriate and may include automated exposure control or mA/KV adjustment according to patient size. FINDINGS: Small subpleural nodules are present in the posterior left lung base. Cholecystectomy clip s Imaged portions of the liver and spleen show no suspicious findings on non-contrast imaging. The panc reas and adrenal glands are normal. No pathologic lymphadenopathy in the abdomen or pelvis. A subtle punctate calculus is suspected in the distal right ureter. This results in mild right hydron ephrosis and hydroureter No bowel obstruction, free air, free fluid or abscess. Normal appendix noted. No significant bony abnormality. IMPRESSION: Tiny punctate stone is suspected in the distal right ureter resulting in mild right hydr onephrosis and hydroureter.
[2021-05-30 21:25] LABS: Urine Bacteria >50 /HPF (<20); Urine RBC <5 /HPF (NONE SEEN)
[2021-05-30 21:26] LABS: Urine Mucus LIGHT /HPF (NONE SEEN)
[2021-05-30] MEDS ORDERED: NA CHLORIDE 0.9% 1,000 ML ONE (21:27)
[2021-05-30 21:35] LABS: Absolute Lymphocytes (CBC) 1.8 K/uL (0.7-4.9); Basophils % 0.6 % (0-1.3); Hematocrit 31.8 % (36.0-45.0); Lymphocytes % 17.3 % (15.3-44.8); MPV 7.7 fL (7.6-11.3); RBC Red Blood Cell Count 3.43 M/uL (3.86-4.86)
[2021-05-30] MEDS ORDERED: KETOROLAC 30 MG/ML INJ ONE ×2 (21:39→23:18)
[2021-05-30] MEDS ORDERED: TAMSULOSIN 0.4 MG SR CAP ONE (21:39)
[2021-05-30] MEDS ORDERED: MORPHINE 4 MG/ML SYR ONE (21:39)
[2021-05-30] MEDS ORDERED: ONDANSETRON 4 MG/2 ML VIAL ONE (21:39)
[2021-05-30] MEDS ORDERED: MAGNESIUM SULFATE 1 gm IVPB 1 GM/100 ML BAG IV ONE (21:39)
[2021-05-30 21:40] LABS: Albumin 3.7 g/dL (3.4-5.0); Bilirubin Direct 0.1 mg/dL (0-0.2); Bilirubin Total 0.5 mg/dL (0.2-1.0); Potassium 3.3 mmol/L (3.5-5.1); Protein, Total 7.1 g/dL (6.4-8.2)
[2021-05-30] MEDS ORDERED: CIPROFLOXACIN 400mg IV 400 MG/200 ML BAG IV ONE (23:11)
--- NOTE | 2021-05-30 23:31 | ER ---
Nurse's Notes [facility] Name: Iliana Tolentino Age: 41 yrs Sex: Female : 1980 Arrival Date: 05/30/2021 Time: 20:17 Bed 24 Private MD: Diagnosis: Calculus of ureter;UTI/ Urinary tract infection, site not specified Presentation: 05/30 20:15 Chief complaint: Patient states: " I'm hurting so bad, guarding stomach, co lower back dc2 pain that wraps around, co dysuria and frequecy since yesterday. " Denies NV. 20:15 Coronavirus screen: Vaccine status: Patient reports being unvaccinated. Client denies dc2 travel out of the [place] in the last 14 days. At this time, the client does not indicate any symptoms associated with coronavirus-19. Ebola Screen: Patient negative for fever greater than or equal to 101.5 degrees Fahrenheit, and additional compatible Ebola Virus Disease symptoms Patient denies exposure to infectious person. Patient denies travel to an Ebola-affected area in the 21 days before illness onset. Initial Sepsis Screen: Does the patient meet any 2 criteria? No. Patient's initial sepsis screen is negative. Does the patient have a suspected source of infection? No. Patient's initial sepsis screen is negative. Risk Assessment: Do you want to hurt yourself or someone else? Patient reports no desire to harm self or others. Onset of symptoms was May 29, 2021. 20:15 Method Of Arrival: EMS: [facility] dc2 20:15 Acuity: KAROL 3 dc2 Historical: - Allergies: 20:15 ACETAMINOPHEN; dc2 20:15 Propoxyphene N-Acetaminophen; dc2 20:15 Naproxen; dc2 - Home Meds: 20:15 Risperdal Oral once daily for mixed bipolar I disorder [Active]; dc2 - PMHx: 20:15 Anxiety; Bipolar disorder; Ovarian cyst; dc2 - Immunization history:: Adult Immunizations up to date, Client reports having NOT received the Covid vaccine. Last tetanus immunization: not indicated for visit today. Pneumococcal vaccine status is unknown, Flu vaccine is not up to date. Patient has never been vaccinated. - Family history:: not pertinent. - Hospitalizations: : No recent hospitalization is reported. Assessment: 20:15 General: Appears uncomfortable, slender, unkempt, Behavior is cooperative, anxious, dc2 States she is in so much pain , having trouble sitting still. . Pain: Complains of pain in Lower back that radiates to both sides, more the right than left, has pain when using the bathroom. Neuro: No deficits noted. Cardiovascular: No deficits noted. Denies chest pain, shortness of breath. Respiratory: Airway is patent Respiratory effort is even, unlabored, Breath sounds are clear bilaterally. : Reports burning with urination, cramping, urgency, urinary frequency, since yesterday. EENT: Pt with no teeth. . Derm: No deficits noted. Musculoskeletal: No deficits noted. 23:37 Reassessment: Discharge delay due to Antibiotics haven't completed yet. dc2 05/31 00:06 Reassessment: Antibiotic completed ( pt continued to bend arm ) . Will get ready for dc2 discharge. Vital Signs: 05/30 20:15 BP 115 / 70; Pulse 81; Resp 17; Temp 99.2(O); Pulse Ox 100% ; Weight 54.43 kg; Height 5 dc2 ft. 5 in. (165.10 cm); Pain 10/10; 20:15 BP 115 / 70; Pulse 81; Resp 17; Temp 99.2; Pulse Ox 100% ; Pain 10/10; dc2 21:15 BP 103 / 55; Pulse 88; Resp 18; Pulse Ox 100% ; Pain 10/10; dc2 22:15 BP 106 / 64; Pulse 79; Resp 17; Temp 99.7; Pulse Ox 100% ; Pain 7/10; dc2 23:00 BP 108 / 57; Pulse 80; Resp 17; Pulse Ox 100% ; Pain 8/10; dc2 05/31 00:00 BP 105 / 66; Pulse 81; Resp 15; Temp 99.0; Pulse Ox 100% ; Pain 3/10; dc2 05/30 20:15 Body Mass Index 19.97 (54.43 kg, 165.10 cm) dc2 ED Course: 05/30 20:17 Patient arrived in ED. rn 20:17 Adalberto Slater MD is Attending Physician. rn 20:18 Whit Medley RN is Primary Nurse. dc2 20:[address] via wheelchair. dc2 20:38 CT Stone Protocol In Process Unspecified. EDMS 20:45 Urine Culture Sent. dc2 20:45 Urine Microscopic Only Sent. dc2 20:58 Urine --Ancillary (enter results) Sent. dc2 21:10 Urine --Ancillary Sent. dc2 21:10 Basic Metabolic Panel Sent. dc2 21:43 Triage completed. dc2 05/31 00:08 IV discontinued, intact, bleeding controlled, No redness/swelling at site. Pressure dc2 dressing applied. Administered Medications: 05/30 21:19 Drug: Zofran (Ondansetron) 4 mg Route: IVP; Site: right antecubital; dc2 22:15 Follow up: Response: No adverse reaction dc2 21:20 Drug: Flomax (tamsulosin) 0.4 mg Route: PO; dc2 22:43 Follow up: Response: No adverse reaction dc2 21:20 Drug: NS 0.9% 500 ml Route: IV; Rate: bolus; Infused Over: 30 mins; Site: right dc2 antecubital; Delivery: Primary tubing; 22:43 Follow up: IV Status: Completed infusion; IV Intake: 500ml dc2 21:21 Drug: Ketorolac 15 mg Route: IVP; Site: right antecubital; dc2 22:15 Follow up: Response: Pain is decreased dc2 21:27 Drug: morphine 4 mg Route: IVP; Site: right antecubital; dc2 22:25 Follow up: Response: Pain is decreased dc2 21:30 Drug: Magnesium Sulfate 1 grams Route: IVPB; Rate: 100 calculated rate; Infused Over: 1 dc2 hrs; Site: right antecubital; Delivery: Primary tubing; 22:30 Follow up: IV Intake: 100ml dc2 22:43 Follow up: IV Status: Completed infusion; IV Intake: 100ml dc2 22:46 Drug: Cipro (ciprofloxacin) 400 mg Volume: 200 ml; Route: IVPB; Rate: 1 ml/hr; Infused dc2 Over: 60 mins; Site: right antecubital; Delivery: Primary tubing; 05/31 00:05 Follow up: IV Status: Completed infusion; IV Intake: 200ml dc2 05/30 23:11 Drug: Ketorolac 15 mg Route: IVP; Site: right antecubital; dc2 23:36 Follow up: Response: Pain is decreased dc2 05/31 00:05 Follow up: Response: Pain is decreased dc2 Intake: 05/30 22:30 IV: 100ml; Total: 100ml. dc2 22:43 IV: 500ml; Total: 600ml. dc2 22:43 IV: 100ml; Total: 700ml. dc2 05/31 00:05 IV: 200ml; Total: 900ml. dc2 Outcome: 05/30 23:30 Discharge ordered by . rn 05/31 00:07 Discharged to home ambulatory. dc2 Condition: stable Discharge instructions given to patient, Instructed on discharge instructions, Demonstrated understanding of instructions, Prescriptions given X 1. 00:08 Patient left the ED. dc2 Signatures: Dispatcher [employer] EDMS Adalberto Slater MD MD rn Whit Medley RN RN dc2
--- NOTE | 2021-05-30 23:31 | EDPHYS ---
Physician Documentation [facility] Name: Iliana Tolentino Age: 41 yrs Sex: Female : 1980 Arrival Date: 05/30/2021 Time: 20:17 Bed 24 Private MD: ED Physician Adalberto Slater HPI: 05/30 22:30 This 41 yrs old Female presents to ER via EMS with complaints of Right flank rn pain and dysuria. 22:30 The patient complains of pain in the right mid back. The pain does not radiate. Onset: rn The symptoms/episode began/occurred today. Modifying factors: The symptoms are alleviated by nothing. the symptoms are aggravated by nothing. Associated signs and symptoms: Pertinent positives: dysuria, urinary frequency, Pertinent negatives: hematuria, vomiting. Severity of pain: At its worst the pain was moderate in the emergency department the pain has improved. The patient has not experienced similar symptoms in the past. The patient has not recently seen a physician. Patient reports right flank pain that began earlier today. Associated with dysuria and increased frequency. Positive subjective fever. Denies any trauma. Denies cough or congestion.. Historical: - Allergies: 20:15 ACETAMINOPHEN; dc2 20:15 Propoxyphene N-Acetaminophen; dc2 20:15 Naproxen; dc2 - Home Meds: 20:15 Risperdal Oral once daily for mixed bipolar I disorder [Active]; dc2 - PMHx: 20:15 Anxiety; Bipolar disorder; Ovarian cyst; dc2 - Immunization history:: Adult Immunizations up to date, Client reports having NOT received the Covid vaccine. Last tetanus immunization: not indicated for visit today. Pneumococcal vaccine status is unknown, Flu vaccine is not up to date. Patient has never been vaccinated. - Family history:: not pertinent. - Hospitalizations: : No recent hospitalization is reported. ROS: 22:30 Constitutional: Negative for fever, chills, and weight loss, Eyes: Negative for injury, rn pain, redness, and discharge, Neck: Negative for injury, pain, and swelling, Cardiovascular: Negative for chest pain, palpitations, and edema, Respiratory: Negative for shortness of breath, cough, wheezing, and pleuritic chest pain, Abdomen/GI: Negative for diarrhea, and constipation, Back: Negative for injury : Positive for dysuria MS/Extremity: Negative for injury and deformity, Skin: Negative for injury, rash, and discoloration, Neuro: Negative for headache, weakness, numbness, tingling, and seizure. Exam: 22:30 Constitutional: This is a well developed, well nourished patient who is awake, alert, rn appears uncomfortable, laying on left side Head/Face: Normocephalic, atraumatic. Eyes: Pupils equal round and reactive to light, extra-ocular motions intact. Lids and lashes normal. Conjunctiva and sclera are non-icteric and not injected. Cornea within normal limits. Periorbital areas with no swelling, redness, or edema. Cardiovascular: Regular rate and rhythm . No pulse deficits. Respiratory: No increased work of breathing, no retractions or nasal flaring. Abdomen/GI: Soft, mild right lower quadrant tenderness, no rebound Back: No spinal tenderness. No costovertebral tenderness. Full range of motion. Skin: Warm, dry with normal turgor. Normal color with no rashes, no lesions, and no evidence of cellulitis. MS/ Extremity: Pulses equal, no cyanosis. Neurovascular intact. Full, normal range of motion. Equal circumference. Neuro: Awake and alert, GCS 15 Vital Signs: 20:15 BP 115 / 70; Pulse 81; Resp 17; Temp 99.2(O); Pulse Ox 100% ; Weight 54.43 kg; Height 5 dc2 ft. 5 in. (165.10 cm); Pain 10/10; 20:15 BP 115 / 70; Pulse 81; Resp 17; Temp 99.2; Pulse Ox 100% ; Pain 10/10; dc2 21:15 BP 103 / 55; Pulse 88; Resp 18; Pulse Ox 100% ; Pain 10/10; dc2 22:15 BP 106 / 64; Pulse 79; Resp 17; Temp 99.7; Pulse Ox 100% ; Pain 7/10; dc2 23:00 BP 108 / 57; Pulse 80; Resp 17; Pulse Ox 100% ; Pain 8/10; dc2 1015 00:00 BP 105 / 66; Pulse 81; Resp 15; Temp 99.0; Pulse Ox 100% ; Pain 3/10; dc2 05/30 20:15 Body Mass Index 19.97 (54.43 kg, 165.10 cm) dc2 MDM: 05/30 20:17 Patient medically screened. rn 23:28 Differential diagnosis: nephrolithiasis, pyelonephritis, UTI. Differential diagnosis: rn Appendicitis. Data reviewed: vital signs, nurses notes, lab test result(s), radiologic studies. Counseling: I had a detailed discussion with the patient and/or guardian regarding: the historical points, exam findings, and any diagnostic results supporting the discharge/admit diagnosis, lab results, radiology results, the need for outpatient follow up, to return to the emergency department if symptoms worsen or persist or if there are any questions or concerns that arise at home. Response to treatment: the patient's symptoms have markedly improved after treatment, and as a result, I will discharge patient. Special discussion: Based on the patient's Hx, exam, and Dx evaluation, there is no indication for emergent surgery or inpatient Tx. It is understood by the patient/guardian that if the Sx's persist or worsen they need to return immediately for re-evaluation. I discussed with the patient/guardian in detail that at this point there is no indication for admission to the hospital. It is understood, however, that if the symptoms persist or worsen the patient needs to return immediately for re-evaluation. ED course: CT shows punctate stone that has likely now passed. Pain significantly decreased. Urine shows UTI. Given Cipro IV here and will discharge home with Cipro p.o. Return precautions given and understood will follow up with PCP. 05/30 20:18 Order name: Basic Metabolic Panel 05/30 20:18 Order name: CBC with Diff; Complete Time: 22:20 05/30 20:18 Order name: Hepatic Function; Complete Time: 22:20 05/30 20:18 Order name: Lipase; Complete Time: 22:20 05/30 20:18 Order name: Urine Culture 05/30 20:18 Order name: Urine Microscopic Only; Complete Time: 22:20 05/30 20:18 Order name: CT Stone Protocol; Complete Time: 21:02 05/30 20:19 Order name: Basic Metabolic Panel; Complete Time: 22:20 EDWI 05/30 20:49 Order name: Urine --Ancillary (enter results) tt3 05/30 20:50 Order name: Urine --Ancillary; Complete Time: 22:20 [facility] 05/30 20:18 Order name: IV Saline Lock; Complete Time: 21:10 rn 05/30 20:18 Order name: Labs collected and sent; Complete Time: 21:10 rn 05/30 20:18 Order name: Urine Dipstick-Ancillary (obtain specimen); Complete Time: 20:45 rn 05/30 20:18 Order name: Urine Test (obtain specimen); Complete Time: 21:10 rn Administered Medications: 21:19 Drug: Zofran (Ondansetron) 4 mg Route: IVP; Site: right antecubital; dc2 22:15 Follow up: Response: No adverse reaction dc2 21:20 Drug: Flomax (tamsulosin) 0.4 mg Route: PO; dc2 22:43 Follow up: Response: No adverse reaction dc2 21:20 Drug: NS 0.9% 500 ml Route: IV; Rate: bolus; Infused Over: 30 mins; Site: right dc2 antecubital; Delivery: Primary tubing; 22:43 Follow up: IV Status: Completed infusion; IV Intake: 500ml dc2 21:21 Drug: Ketorolac 15 mg Route: IVP; Site: right antecubital; dc2 22:15 Follow up: Response: Pain is decreased dc2 21:27 Drug: morphine 4 mg Route: IVP; Site: right antecubital; dc2 22:25 Follow up: Response: Pain is decreased dc2 21:30 Drug: Magnesium Sulfate 1 grams Route: IVPB; Rate: 100 calculated rate; Infused Over: 1 dc2 hrs; Site: right antecubital; Delivery: Primary tubing; 22:30 Follow up: IV Intake: 100ml dc2 22:43 Follow up: IV Status: Completed infusion; IV Intake: 100ml dc2 22:46 Drug: Cipro (ciprofloxacin) 400 mg Volume: 200 ml; Route: IVPB; Rate: 1 ml/hr; Infused dc2 Over: 60 mins; Site: right antecubital; Delivery: Primary tubing; 05/31 00:05 Follow up: IV Status: Completed infusion; IV Intake: 200ml dc2 05/30 23:11 Drug: Ketorolac 15 mg Route: IVP; Site: right antecubital; dc2 23:36 Follow up: Response: Pain is decreased dc2 05/31 00:05 Follow up: Response: Pain is decreased dc2 Disposition Summary: 10/14/21 23:30 Discharge Ordered Location: Home rn Problem: new rn Symptoms: have improved rn Condition: Stable rn Diagnosis - Calculus of ureter rn - UTI/ Urinary tract infection, site not specified rn Followup: rn - With: Private Physician - When: As needed - Reason: Recheck today's complaints, Re-evaluation by your physician Discharge Instructions: - Discharge Summary Sheet rn - Dysuria rn - Kidney Stones rn - Renal Colic rn - Urinary Tract Infection, Adult rn - Dietary Guidelines to Help Prevent Kidney Stones rn Forms: - Medication Reconciliation Form rn - Thank You Letter rn - Antibiotic sport internship - Prescription Opioid Use rn Prescriptions: - Cipro 500 mg Oral Tablet - take 1 tablet by ORAL route every 12 hours for 7 days; 14 tablet; Refills: 0, rn Product Selection Permitted Signatures: Dispatcher [employer] Adalberto Tovar MD MD rn GalindoWhit RN RN dc2
[2021-05-31 00:38] VITALS: O2SAT 100
[2021-05-31 00:45] VITALS: BP 105/66; TEMP 99
[2021-05-31 15:17] LABS: Urine Blood 2+ (Negative); Urine Glucose Negative (Negative); Urine Protein 1+ (Negative); Urine pH 5.5 (5.0-7.0)
== END 2021-05-31 00:08 | disposition home or self-care (01) ==
LOC: ER 20:09
DX: N20.1 Calculus of ureter (principal); N39.0 Urinary tract infection, site not specified; Z88.5 Allergy status to narcotic agent; Z88.6 Allergy status to analgesic agent
CPT/HCPCS: 36415; 74176; 76377; 80048; 80076; 81003; 81015; 81025; 83690; 85025; 87077; 87086; 87088; 87186; 96365; 96366; 96367; 96375; 99284; J0744; J2405; J3475; J7030

== ENCOUNTER 2021-07-18 06:40 | Emergency (ER) | payer SELFPAY ==
--- OUTSIDE RECORDS SUMMARY | 2021-07-18 06:44 | XMS REPORT | Continuity of Care Document ---
:[address] [facility] t Address [address] [place] [id number] Care Team Providers Name Role Phone UNKNOWN Primary Care Physician Unavailable JUN LOWERY M.D. Attending Clinician Unavailable JUN LOWERY M.D. Admitting Clinician Unavailable Problems This patient has no known problems. Allergies, Adverse Reactions, Alerts This patient has no known allergies or adverse reactions. Medications This patient has no known medications. Procedures This patient has no known procedures. Results Test Description Test Time Test Comments Results Result Comments Source Chlamydia/GC Amplification 2017-08-26 12:49:00 Test Item Value Reference Range Interpretation Comme nts Chlamydia trachomatis, CECILIA (test code = 460269) Negative Negati ve N Neisseria gonorrhoeae, CECILIA (test code = 924390) Negative Negati ve N Smear, Wet [id number] 10:19:00 Test Item Value Reference Range Interpretation Comments WBC (test code = JWBC) NONE EPITHELIAL CELLS (test code = MODERATE JEPITH) BACTERIA (test code = JBACTERIA) MODERATE CLUE CELLS (test code = JCLUE) NONE YEAST (test code = JYEAST) NONE TRICHOMONAS (test code = JTRICH) NONE RPR, [id number] 02:13:00 Test Item Value Reference Range Interpretation Comments RPR (test code = RPR) Non-Reactive Non-Reactive N Thyroid Stimulating Hormone (TSH)2017-08-21 08:25:00 Test Item Value Reference Range Interpretation Comments TSH (test code = TSH) 1.67 mIU/mL 0.270-4.200 N Lipid [id number] 08:25:00 Test Item Value Reference Range Interpretation Comments Cholesterol (test 172 mg/dL 0-200 N code = CHOL) Triglycerides (test 106 mg/dL 9-200 N code = TRIG) HDL (test code = 43 mg/dL 50-60 L HDL) Chol/HDL (test code 4.0 Ratio 0.0-4.4 N = CHOLPHDL) LDL, Calculated 108 0-130 N (NOTE)RISK O F HEART (test code = LDLC) DISEASEPu blished by [place] Heart AssociationAnal yte Optim al Boderline Increased RiskC HOL <200 200-239 >240TRI G <150 150-199 >200HDL Male: >60 <40HDL Female: >60 <50 LDL < 100 130-15 9 >160 LDL NEAR OPTIMAL IS 100- 129 VLDL (test code = 21 mg/dL 5-40 N VLDL) LDL/HDL (test code = 3 LDLPHDL) BHCG, Serum, [id number] 07:53:00 Test Item Value Reference Range Interpretation Comments Preg Qual [Se] (test code = BSHCG) Negative Negative N Alcohol/Ethanol, [id number] 20:38:00 Test Item Value Reference Range Interpretation Comments Alcohol, Ethyl <0.01 g/dL 0.00-0.01 N Intoxicated 0.080 (test code = ETOH) g/dL or m ore Comprehensive Metabolic [id number] 20:38:00 Test Item Value Reference Range Interpretation Comments Sodium (test code = 137 mmol/L 135-145 N NA) Potassium (test 4.2 mmol/L 3.5-5.1 N code = K) Chloride (test code 99 mmol/L 98-105 N = CL) Carbon Dioxide 23 mmol/L 22-29 N (test code = CO2) Glucose (test code 83 mg/dL 70-115 N = GLU) Blood Urea Nitrogen 18 mg/dL 6-20 N (test code = BUN) Creatinine (test 0.8 mg/dL 0.5-0.9 N code = CREAT) Calcium (test code 10.2 mg/dL 8.3-10.5 N = CA) Prot Total (test 9.1 g/dL 6.4-8.3 H code = TP) Albumin (test code 5.5 g/dL 3.5-5.2 H = ALB) A/G Ratio (test 1.5 Ratio code = AGRATIO) Globulin (test code 3.6 2.9-3.1 H = GLOB) Bili Total (test 0.7 mg/dL 0.1-0.9 N code = TBIL) Alk Phos (test code 48 U/L 35-104 N = APHOS) AST (test code = 16 U/L 1-32 N AST) ALT (test code = 11 U/L 1-33 N ALT) BUN/Creatinine 22.5 Ratio (test code = BCRATIO) Anion Gap (test 15 mmol/L 7-16 N code = AGAP) Estimated GFR (test >60 eGFR (es timated code = GFR) mL/min/1.73m2 Glomerular Reece tration Rate) is an est imated value,calculate d from the patient's s kyree creatinine usin g the MDRD equation.I t is NOT the patient 's actual GFR. The eGFR provides a more clinicallyusefu l measure of kidn ey disease than se rum creatinine alone.This calculation michael es sex and race into account, if the informationis provided. If th e race is not provided , and the patient isAfrican-Ameri can, multiply by 1.2 12. If sex is not prov ided, and thepatient is female, multipl y by 0.742. Results for patients <18 ye ars ofage have not been validated by th e MDRD study and shoul d be interpretedwith caution.eGFR Re sult Interpretation: eGFR > or = 60 is in t he Normal RangeeGF R < 60 may mean kidney diseaseeGFR < 1 5 may mean kidney failureRange s recommended by the National Kidney Foundation,http ://nkd ep.nih.gov [id number] 20:31:00 Test Item Value Reference Range Interpretation Comments Amphetamine (test code POSITIVE Negative A For d iagnostic purposes = AMPH) only, positive results should always b e assessedin conjunctionwith the patient's medic al history,clinica l examination and otherfindings.T o fulfill legal requirements, a more specific altern ate chemical method must be used inorder to obtain a Confirmed francheska lytical result. GC/MS i s the preferred confi rmatory method. Barbiturates (test Negative Negative N code = KYRIE) Benzodiazepine (test Negative Negative N code = CHARLIE) Cocaine (test code = Negative Negative N COCA) Opiates (test code = Negative Negative N OPIA) PCP (test code = PCP) Negative Negative N THC (test code = THC) POSITIVE Negative A CBC with [id number] 20:30:00 Test Item Value Reference Range Interpretation Comments WBC (test code = WBC) 14.6 K/cumm 4.4-10.5 H RBC (test code = RBC) 4.89 M/cumm 3.75-5.20 N Hemoglobin (test code = HGB) 14.6 gm/dL 12.2-14.8 N Hematocrit (test code = HCT) 41.7 % 36.5-44.4 N MCV (test code = MCV) 85.2 fL 80-100 N MCH (test code = MCH) 29.9 pg 27.0-32.5 N MCHC (test code = MCHC) 35.1 g/dL 32.0-37.5 N RDW (test code = RDW) 14.2 % 11.5-14.5 N Platelet Count (test code = 351 K/cumm 140-440 N PLTCT) MPV (test code = MPV) 9.5 fL Diff Method (test code = DIFFM) Auto Neutrophil (test code = NEUT) 51.6 % 36-70 N Lymphocyte (test code = LYMPH) 39.7 % 12-44 N Monocyte (test code = MONO) 5.1 % 0-11 N Eosinophil (test code = EOS) 3.0 % 0-7 N Basophil (test code = BASO) 0.7 % 0-2 N Neutro Abs (test code = ANEUT) 7.5 K/cumm 1.6-7.4 H Lymph Abs (test code = ALYMPH) 5.8 K/cumm 0.5-4.6 H Dorado Abs (test code = AMONO) 0.8 K/cumm 0.0-1.2 N Eos Abs (test code = AEOS) 0.43 K/cumm 0.00-0.74 N Baso Abs (test code = ABASO) 0.1 K/cumm 0.00-0.21 N BHCG, Serum, [id number] 20:29:00 Test Item Value Reference Range Interpretation Comments Preg Qual [Se] (test code = BSHCG) Negative Negative N
[2021-07-18] MEDS ORDERED: MORPHINE 4 MG/ML SYR ONE ×2 (07:05→08:57)
[2021-07-18] MEDS ORDERED: ONDANSETRON 4 MG/2 ML VIAL ONE ×2 (07:06→08:57)
[2021-07-18 07:18] LABS: Absolute Lymphocytes (CBC) 1.3 K/uL (0.7-4.9); Basophils % 0.6 % (0-1.3); Hematocrit 34.7 % (36.0-45.0); MPV 7.4 fL (7.6-11.3); RBC Red Blood Cell Count 3.83 M/uL (3.86-4.86)
[2021-07-18 07:22] LABS: Urine Blood Trace-lysed (Negative); Urine Glucose Negative (Negative); Urine Protein Trace (Negative)
[2021-07-18 07:31] LABS: Albumin 3.8 g/dL (3.4-5.0); Bilirubin Direct 0.2 mg/dL (0-0.2); Bilirubin Total 0.8 mg/dL (0.2-1.0); Potassium 3.6 mmol/L (3.5-5.1); Protein, Total 7.5 g/dL (6.4-8.2)
--- NOTE | 2021-07-18 08:36 | RAD REPORT ---
EXAM DESCRIPTION: CT - Abdomen Pelvis W Contrast - 07/18/2021 8:20 am CLINICAL HISTORY: bilateral flank pain COMPARISON: Abdomen Pelvis W Contrast dated 12/11/2017 TECHNIQUE: Biphasic, helical CT imaging of the abdomen and pelvis was performed following 100 ml non -ionic IV contrast. No oral contrast was given. All CT scans are performed using dose optimization technique as appropriate and may include automated exposure control or mA/KV adjustment according to patient size. FINDINGS: No suspicious findings in the lung bases. The liver, spleen, and pancreas show no suspicious findings. Cholecystectomy clips are present. No bi liary tree dilatation. Patchy areas of diminished attenuation and enhancement are seen in both kidneys, left greater than ri ght. Mild amount of stranding and edema seen in the left perinephric fat. No abscess seen. No hydrone phrosis or obstructing calculi. No solid mass lesion. No bladder abnormalities. No adrenal abnormalit ies. No dilated bowel loops or bowel wall thickening. Appendix is normal. No free air, free fluid or infla mmatory stranding. No hernia, mass or bulky lymphadenopathy. No suspicious bony findings. IMPRESSION: Mild bilateral pyelonephritis, worse on the left. No abscess, obstruction or other emergent finding.
[2021-07-18] MEDS ORDERED: NA CHLORIDE 0.9% 100 ML ONE (08:58)
[2021-07-18] MEDS ORDERED: CEFTRIAXONE 1000 MG/VIAL ONE (08:58)
[2021-07-18] MEDS ORDERED: KETOROLAC 30 MG/ML INJ ONE (10:41)
--- NOTE | 2021-07-18 10:45 | ER ---
Nurse's Notes [facility] Name: Iliana Tolentino Age: 41 yrs Sex: Female : 1980 Arrival Date: 07/18/2021 Time: 06:43 Bed 16 Private MD: Diagnosis: Pyelonephritis Presentation: 07/18 06:43 Chief complaint: EMS states: pt seen here 3 weeks ago for kidney infection and uti, pt sm5 states meds prescribed here did not work with her psych meds she takes and pt is still having bilateral flank pain and abd pain. Coronavirus screen: Vaccine status: Patient reports being unvaccinated. Ebola Screen: Patient negative for fever greater than or equal to 101.5 degrees Fahrenheit, and additional compatible Ebola Virus Disease symptoms Patient denies exposure to infectious person. Patient denies travel to an Ebola-affected area in the 21 days before illness onset. Initial Sepsis Screen: Does the patient meet any 2 criteria? HR > 90 bpm. Yes Does the patient have a suspected source of infection? No. Patient's initial sepsis screen is negative. Risk Assessment: Do you want to hurt yourself or someone else? Patient reports no desire to harm self or others. Onset of symptoms was June 27, 2021. 06:43 Method Of Arrival: EMS: [facility] 06:43 Acuity: KAROL 3 sm5 Triage Assessment: 06:46 General: Appears in no apparent distress. Behavior is calm, cooperative. Pain: sm5 Complains of pain in back and abdomen. Neuro: Level of Consciousness is awake, alert, Oriented to person, place, time, situation. Cardiovascular: No deficits noted. Respiratory: No deficits noted. Airway is patent Trachea midline Respiratory effort is even, unlabored. : Reports flank pain. ENCODING CLERK: 07:43 LMP N/A - Depo-provera 6 Historical: - Allergies: 06:46 ACETAMINOPHEN; sm5 06:46 Naproxen; sm5 06:46 Propoxyphene N-Acetaminophen; sm5 - Home Meds: 06:46 Celexa Oral [Active]; Risperdal Oral once daily for Mixed Bipolar I Disorder [Active]; sm5 - PMHx: 06:46 Anxiety; Bipolar disorder; Ovarian cyst; sm5 - Immunization history:: Client reports having NOT received the Covid vaccine. - Social history:: Smoking status: unknown. Screenin:45 Abuse screen: Denies threats or abuse. Denies injuries from another. Nutritional [facility] screening: No deficits noted. Tuberculosis screening: No symptoms or risk factors identified. Fall Risk None identified. Assessment: 07:20 General: Appears uncomfortable, Behavior is cooperative. [facility] 07:20 Pain: Complains of pain in left mid back and right mid back Pain currently is 10 out of jh6 10 on a pain scale. Quality of pain is described as aching, Pain began suddenly, 1 day ago. Is continuous, Aggravated by increased activity, Noted to be restless. : Reports burning with urination, pain in bilateral. 08:39 General: Appears in no apparent distress. Behavior is cooperative. Pain: Complains of 6 pain in back Pain currently is 6 out of 10 on a pain scale. Quality of pain is described as aching, shooting, Noted to be quiet/stoic. 09:00 Pain: Complains of pain in back Pain currently is 8 out of 10 on a pain scale. [facility] 09:39 Reassessment: Patient states feeling better. pain still present but pain meds did help jh6 slightly. call light in reach.. 11:10 Reassessment: Patient and/or family updated on plan of care and expected duration. Pain jh6 level reassessed. Patient states feeling better. Patient states symptoms have improved. Vital Signs: 06:43 BP 130 / 79; Pulse 100; Resp 18; Temp 99.1(O); Pulse Ox 99% ; Weight 61.23 kg; Height 5 [facility] ft. 2 in. (157.48 cm); Pain 10/10; 07:20 BP 122 / 76; Pulse 70; Resp 18; Pulse Ox 100% on R/A; Pain 10/10; jh6 08:38 BP 114 / 73; Pulse 70; Resp 16; Temp 99.0; jh6 09:39 BP 118 / 77; Pulse 68; Resp 18; Temp 98.6(O); Pain 5/10; jh6 11:10 BP 108 / 63; Pulse 85; Resp 17; Temp 97.8(O); Pulse Ox 100% on R/A; Pain 3/10; jh6 06:43 Body Mass Index 24.69 (61.23 kg, 157.48 cm) [facility] ED Course: 06:43 Patient arrived in ED. [facility] 06:45 Triage completed. [facility] 06:45 Arm band placed on right wrist. [facility] 06:47 Patient has correct armband on for positive identification. Bed in low position. Call [facility] light in reach. Side rails up X2. 06:49 [facility] Gabriel [facility] 06:49 Logan Owens MD is Attending Physician. [facility] 07:02 Radha Gonzalez RN is Primary Nurse. [facility] 07:22 Inserted saline lock: 22 gauge in right forearm, using aseptic technique. Blood tp1 collected. 07:46 Urine --Ancillary (enter results) Sent. [facility] 07:46 Urine Dipstick-Ancillary Sent. [facility] 08:19 CT Abd/Pelvis - IV Contrast Only In Process Unspecified. EDIN 08:[address] Scan. [facility] 11:25 No provider procedures requiring assistance completed. [facility] 11:25 IV discontinued, intact, bleeding controlled, No redness/swelling at site. [facility] Administered Medications: 07:28 Drug: morphine 4 mg Route: IVP; Site: left antecubital; [facility] 07:47 Follow up: Response: Pain is decreased [facility] 07:28 Drug: Zofran (Ondansetron) 4 mg Route: IVP; Site: left antecubital; [facility] 07:46 Follow up: Response: No adverse reaction [facility] 09:06 Drug: Rocephin (cefTRIAXone) 2 grams Route: IV; Rate: calculated rate; Site: left [facility] forearm; 09:06 Drug: morphine 4 mg Route: IVP; Site: left forearm; [facility] 09:06 Drug: Zofran (Ondansetron) 4 mg Route: IVP; Site: left forearm; [facility] 10:42 Drug: Ketorolac 30 mg Route: IVP; Site: left forearm; [facility] 11:26 Follow up: Response: Pain is decreased [facility] Outcome: 10:44 Discharge ordered by . [facility] 11:25 Discharged to home ambulatory. [facility] 11:25 Condition: good 11:25 Discharge instructions given to patient, Instructed on discharge instructions, follow up and referral plans. medication usage, Demonstrated understanding of instructions, follow-up care, medications. 11:26 Patient left the ED. [facility] Addendum: 07/23/2021 09:43 Addendum: Culture Results: Positive urine culture. Bacteria is resistant to, has i w intermediate sensitivity, or is not tested against prescribed antibiotics. Report given to CHARLIE for further evaluation and then to force adjustment supervisor for follow up with patient. Phone call Attempt #1 no answer, left VM. Signatures: Dispatcher [employer] EDMS Emre Gabriel PA PA jmm Williams, Irene, RN RN iw Radha Gonzalez RN RN 6 Joanna Mauricio 1 Catarina Greene RN RN sm5
--- NOTE | 2021-07-18 10:45 | EDPHYS ---
Physician Documentation [facility] Name: Iliana Tolentino Age: 41 yrs Sex: Female : 1980 Arrival Date: 07/18/2021 Time: 06:43 Bed 16 Private MD: ED Physician Logan Owens HPI: 07/18 06:49 This 41 yrs old Female presents to ER via EMS with complaints of bilateral flank pain. jmm 06:49 The patient complains of pain in the left flank and right flank. The pain does not jmm radiate. Onset: The symptoms/episode began/occurred gradually. Modifying factors: The symptoms are alleviated by nothing. the symptoms are aggravated by nothing. Associated signs and symptoms: Pertinent positives: nausea, vomiting, Pertinent negatives: fever. The patient has experienced a previous episode, 05/31. MEDICAID BILLER: 07:43 LMP N/A - Depo-provera jh6 Historical: - Allergies: 06:46 ACETAMINOPHEN; sm5 06:46 Naproxen; sm5 06:46 Propoxyphene N-Acetaminophen; sm5 - Home Meds: 06:46 Celexa Oral [Active]; Risperdal Oral once daily for Mixed Bipolar I Disorder [Active]; sm5 - PMHx: 06:46 Anxiety; Bipolar disorder; Ovarian cyst; sm5 - Immunization history:: Client reports having NOT received the Covid vaccine. - Social history:: Smoking status: unknown. ROS: 06:49 Constitutional: Negative for fever, chills, and weight loss, Cardiovascular: Negative jmm for chest pain, palpitations, and edema, Respiratory: Negative for shortness of breath, cough, wheezing, and pleuritic chest pain. 06:49 Abdomen/GI: Positive for abdominal pain, nausea and vomiting. 06:49 Back: Positive for flank pain. 06:49 All other systems are negative. Exam: 06:49 Constitutional: This is a well developed, well nourished patient who is awake, alert, jmm and in no acute distress. Head/Face: atraumatic. Eyes: EOMI, no conjunctival erythema appreciated ENT: Moist Mucus Membranes Neck: Trachea midline, Supple Chest/axilla: Normal chest wall appearance and motion. Cardiovascular: Regular rate and rhythm. No edema appreciated Respiratory: Normal respirations, no respiratory distress appreciated 06:49 Skin: General appearance color normal MS/ Extremity: Moves all extremities, no obvious deformities appreciated, no edema noted to the lower extremities Neuro: Awake and alert, normal gait Psych: Behavior is normal, Mood is normal, Patient is cooperative and pleasant 06:49 Abdomen/GI: Inspection: abdomen appears normal, Bowel sounds: normal, Palpation: soft, mild abdominal tenderness, in the right upper quadrant, left upper quadrant, right lower quadrant and left lower quadrant. 06:49 Back: CVA tenderness, that is mild, is noted bilaterally. Vital Signs: 06:43 BP 130 / 79; Pulse 100; Resp 18; Temp 99.1(O); Pulse Ox 99% ; Weight 61.23 kg; Height 5 5 ft. 2 in. (157.48 cm); Pain 10/10; 07:20 BP 122 / 76; Pulse 70; Resp 18; Pulse Ox 100% on R/A; Pain 10/10; jh6 08:38 BP 114 / 73; Pulse 70; Resp 16; Temp 99.0; 6 09:39 BP 118 / 77; Pulse 68; Resp 18; Temp 98.6(O); Pain 5/10; jh6 11:10 BP 108 / 63; Pulse 85; Resp 17; Temp 97.8(O); Pulse Ox 100% on R/A; Pain 3/10; jh6 06:43 Body Mass Index 24.69 (61.23 kg, 157.48 cm) [facility] MDM: 06:49 Patient medically screened. [facility] 10:43 Data reviewed: vital signs, nurses notes. Counseling: I had a detailed discussion with [facility] the patient and/or guardian regarding: the historical points, exam findings, and any diagnostic results supporting the discharge/admit diagnosis, lab results, radiology results, the need for outpatient follow up, to return to the emergency department if symptoms worsen or persist or if there are any questions or concerns that arise at home. ED course: Patient is alert and non toxic in appearance in the ED. Able to tolerate PO in the ED. Advised to return to the ED if she is unable to tolerate fluids or if pain increases. Patient understood and agrees with the plan of care. . 07/18 06:50 Order name: Basic Metabolic Panel; Complete Time: 07:34 [facility] 07/18 06:50 Order name: CBC with Diff; Complete Time: 07:19 [facility] 07/18 06:50 Order name: Hepatic Function; Complete Time: 07:34 [facility] 07/18 06:50 Order name: Lipase; Complete Time: 07:34 [facility] 07/18 07:22 Order name: Urine Dipstick-Ancillary [facility] 07/18 07:38 Order name: CREATININE WHOLE BLOOD; Complete Time: 07:42 [facility] 07/18 06:50 Order name: CT Abd/Pelvis - IV Contrast Only; Complete Time: 08:38 [facility] 07/18 07:41 Order name: Urine --Ancillary (enter results); Complete Time: 17:53 em1 07/18 09:18 Order name: Urine Culture [facility] 07/18 06:50 Order name: IV Saline Lock; Complete Time: 07:22 [facility] 07/18 06:50 Order name: Labs collected and sent; Complete Time: 07:22 [facility] 07/18 06:50 Order name: Urine Dipstick-Ancillary (obtain specimen); Complete Time: 07:28 [facility] 07/18 06:50 Order name: Urine Test (obtain specimen) [facility] 07/18 09:19 Order name: PO challenge; Complete Time: 10:37 [facility] Administered Medications: 07:28 Drug: morphine 4 mg Route: IVP; Site: left antecubital; jh6 07:47 Follow up: Response: Pain is decreased [facility] 07:28 Drug: Zofran (Ondansetron) 4 mg Route: IVP; Site: left antecubital; jh6 07:46 Follow up: Response: No adverse reaction [facility] 09:06 Drug: Rocephin (cefTRIAXone) 2 grams Route: IV; Rate: calculated rate; Site: left [facility] forearm; 09:06 Drug: morphine 4 mg Route: IVP; Site: left forearm; jh6 09:06 Drug: Zofran (Ondansetron) 4 mg Route: IVP; Site: left forearm; 6 10:42 Drug: Ketorolac 30 mg Route: IVP; Site: left forearm; 6 11:26 Follow up: Response: Pain is decreased [facility] Disposition Summary: 07/18/21 10:44 Discharge Ordered Location: Home [facility] Condition: Stable [facility] Diagnosis - Pyelonephritis [facility] Followup: [facility] - With: Private Physician - When: 2 - 3 days - Reason: Recheck today's complaints, Continuance of care, Re-evaluation by your physician Discharge Instructions: - Discharge Summary Sheet [facility] - Pyelonephritis, Adult [facility] Forms: - Medication Reconciliation Form [facility] - Thank You Letter dhruv - Antibiotic Education [facility] - Prescription Opioid Use [facility] Prescriptions: - ondansetron 4 mg Oral tablet,disintegrating - take 1 tablet by ORAL route every 6 hours; 20 tablet; Refills: 0, Product [facility] Selection Permitted - cefpodoxime 200 mg Oral Tablet - take 1 tablet by ORAL route every 12 hours for 10 days with food; 20 tablet; m Refills: 0, Product Selection Permitted - Tramadol 50 mg Oral Tablet - take 1 tablet by ORAL route every 8 hours as needed; 12 tablet; Refills: 0, [facility] Product Selection Permitted Addendum: 07/22/2021 19:03 Co-signature as Attending Physician, Logan james Signatures: Dispatcher [employer] Logan Reese MD MD pkl Mickail, Joel, PA PA jmm Hastedt, Jennifer, RN RN jh6 Catarina Greene RN RN sm5
[2021-07-18 11:50] VITALS: O2SAT 100
[2021-07-18 11:54] VITALS: BP 108/63; TEMP 97.8
== END 2021-07-18 11:26 | disposition home or self-care (01) ==
LOC: ER 06:40
DX: N12 Tubulo-interstitial nephritis, not specified as acute or chronic (principal)
CPT/HCPCS: 36415; 74177; 80048; 80076; 81003; 81025; 82565; 83690; 85025; 87077; 87086; 87088; 87186; 99284; J2405; Q9967

== ENCOUNTER 2022-03-25 08:01 | Emergency (ER) | payer SELFPAY ==
--- OUTSIDE RECORDS SUMMARY | 2022-03-25 08:05 | XMS REPORT | Continuity of Care Document ---
:1980 Author Organization [facility] t Address [address] [place] [address] [place] [id number] Care Team Providers Name Role Phone UNKNOWN, REFFERING Primary Care Physician Unavailable JUN LOWERY M.D., Amanda BARAHONA Attending Clinician Unavailable JUN LOWERY M.D., JUN Admitting Clinician Unavail able Problems This patient has no known problems. Allergies, Adverse Reactions, Alerts This patient has no known allergies or adverse reactions. Medications This patient has no known medications. Procedures This patient has no known procedures. Results Test Description Test Time Test Comments Results Result Comments Source COMPREHENSIVE METABOLIC PANEL 2021-11-05 04:06:18 Test Item Value Reference Range Interpretation Comme nts GLUCOSE (test code = 2217) 111 MG/DL 70-99 H BUN (test code = 2208) 23 MG/DL 6-20 H CREATININE (test code = 0.70 MG/DL 0.60-1.30 2213) eGFR (2020 CKD-EPI) (test 110 ML/MIN/1.73 >60 code = 70448) CALC BUN/CREAT (test code = 33 RATIO 6-28 H 2234) SODIUM (test code = 2231) 144 MEQ/L 133-146 POTASSIUM (test code = 2228) 5.0 MEQ/L 3.5-5.4 CHLORIDE (test code = 2215) 102 MEQ/L 95-107 CARBON DIOXIDE (test code = 22 MEQ/L 19-31 2205) CALCIUM (test code = 2209) 9.8 MG/DL 8.5-10.5 PROTEIN, TOTAL (test code = 7.7 G/DL 6.1-8.3 2228) ALBUMIN (test code = 2201) 5.0 G/DL 3.5-5.2 CALC GLOBULIN (test code = 2.7 G/DL 1.9-3.7 2239) CALC A/G RATIO (test code = 1.9 RATIO 1.0-2.6 2233) BILIRUBIN, TOTAL (test code <0.2 MG/DL See_Comment [Automated message] The = 2206) system which ge nerated this result transmit selina reference range : <=1.2. The reference range was not used to interpr et this result as anju l/abnormal. ALKALINE PHOSPHATASE (test 73 U/L 40-113 code = 2204) AST (test code = 2218) 31 U/L 9-40 ALT (test code = 2219) 25 U/L 5-40 CBC W/AUTO DIFF WITH [id number] 03:51:13 Test Item Value Reference Range Interpretation Comments WBC (test code = 9.3 K/UL 3.5-11.0 1001) RBC (test code = 3.99 M/UL 3.80-5.40 1002) HEMOGLOBIN (test code 12.2 G/DL 11.5-15.5 = 1003) HEMATOCRIT (test code 35.9 % 34.0-45.0 = 1004) MCV (test code = 90.0 fL 80.0-99.0 1005) MCH (test code = 30.6 PG 25.0-33.0 1006) MCHC (test code = 34.0 G/DL 31.0-36.0 1007) RDW (test code = 12.2 % 11.5-15.0 1038) NEUTROPHILS (test 44.5 % code = 1008) LYMPHOCYTES (test 47.1 % code = 1010) MONOCYTES (test code 4.3 % = 1011) EOSINOPHILS (test 3.2 % code = 1012) BASOPHILS (test code 0.8 % = 1013) IMMATURE GRANULOCYTES 0.1 % (test code = 1036) NUCLEATED RBCS (test 0.0 /100 WBC'S See_Comment [Aut omated code = 1065) message] The sy stem which generated this result transmitted reference range : 0.0. The refere nce range was not u sed to interpret th is result as normal/abnormal . PLATELET COUNT (test 324 K/UL 130-400 code = 1015) ABSOLUTE NEUTROPHILS 4.11 K/UL 1.50-7.50 (test code = 1066) ABSOLUTE LYMPHOCYTES 4.36 K/UL 1.00-4.00 H (test code = 1067) ABSOLUTE MONOCYTES 0.40 K/UL 0.20-1.00 (test code = 1068) ABSOLUTE EOSINOPHILS 0.30 K/UL 0.00-0.50 (test code = 1040) ABSOLUTE BASOPHILS 0.07 K/UL 0.00-0.20 (test code = 1069) ABS IMMATURE 0.01 K/UL 0.00-0.10 GRANULOCYTES (test code = 1020) ABS NUCLEATED RBCS 0.00 K/UL 0.00-0.11 (test code = 85071) HEPATITIS PANEL, [id number] 03:25:28 Test Item Value Reference Range Interpretation Comments HEPATITIS A IgM (test NON-REACTIVE NON-REACTIVE code = 50226) HEPATITIS B CORE IgM NON-REACTIVE NON-REACTIVE (test code = 4644) HEPATITIS B SURF AG NON-REACTIVE NON-REACTIVE (test code = 2739) HEPATITIS C ANTIBODY NON-REACTIVE NON-REACTIVE (test code = 4675) INTERPRETATION (NOTE) Hepatitis A HEPATITIS A: (test code sero logy shows no = 2552) evidence of acu te hepatitis A. INTERPRETATION (NOTE) Hepatitis B HEPATITIS B: (test code sero logy shows no = 51811) evidence of acu te hepatitis B and no indication of exposure to hepatitis B vir us in the previous bettina eight months. INTERPRETATION (NOTE) Hepatitis C HEPATITIS C: (test code sero logy shows no = 62196) evidence of exposure to hepatitisC viru s at this time. I t can take up to 12 months after exposure tothe hepatitis C vir us for antibodies to become detectab le in the blood in certain patient s. HIV 1/2 4TH GEN, RFLX [id number] 03:25:28 Test Item Value Reference Range Interpretation Comments HIV 1/2 4TH GEN, NON-REACTIVE NON-REACTIVE UNLESS OTH ERWISE RFLX CONF (test INDICATED, A LL TESTING code = 3514) PERFORMED [facility] NICAL PATH[facility] [employer] [address] [place] [address] [facility] DIRECTOR: LUKASZ DUTTON M.D. CLIA NUMBER [id number] CAP ACCREDITATION N O. [id number] Chlamydia/GC [id number] 12:49:00 Test Item Value Reference Range Interpretation Comments Chlamydia trachomatis, CECILIA (test Negative Negative N code = 724525) Neisseria gonorrhoeae, CECILIA (test Negative Negative N code = 964639) Smear, Wet [id number] 10:19:00 Test Item Value Reference Range Interpretation Comments WBC (test code = JWBC) NONE EPITHELIAL CELLS (test code = MODERATE JEPITH) BACTERIA (test code = JBACTERIA) MODERATE CLUE CELLS (test code = JCLUE) NONE YEAST (test code = JYEAST) NONE TRICHOMONAS (test code = JTRICH) NONE RPR, [id number] 02:13:00 Test Item Value Reference Range Interpretation Comments RPR (test code = RPR) Non-Reactive Non-Reactive N Thyroid Stimulating Hormone (TSH)2017-08-21 08:25:00 Test Item Value Reference Range Interpretation Comments TSH (test code = TSH) 1.67 mIU/mL 0.270-4.200 N Lipid [id number] 08:25:00 Test Item Value Reference Range Interpretation Comments Cholesterol (test 172 mg/dL 0-200 N code = CHOL) Triglycerides (test 106 mg/dL 9-200 N code = TRIG) HDL (test code = 43 mg/dL 50-60 L HDL) Chol/HDL (test code 4.0 Ratio 0.0-4.4 N = CHOLPHDL) LDL, Calculated 108 0-130 N (NOTE)RISK O F HEART (test code = LDLC) DISEASEPu blished by [place] Heart AssociationAnal yte Optimal Boderli ne Increased RiskC HOL <200 200-239 >240TRI G <150 150-199 >200HDL Male: >60 <40HDL Fema le: >60 <50LDL <100 130 -159 >160LDL NEAR OP TIMAL IS 100-129 VLDL (test code = 21 mg/dL 5-40 N VLDL) LDL/HDL (test code = 3 LDLPHDL) BHCG, Serum, [id number] 07:53:00 Test Item Value Reference Range Interpretation Comments Preg Qual [Se] (test code = BSHCG) Negative Negative N Alcohol/Ethanol, [id number] 20:38:00 Test Item Value Reference Range Interpretation Comments Alcohol, Ethyl <0.01 g/dL 0.00-0.01 N Intoxicated 0 .080 g/dL (test code = ETOH) or more Comprehensive Metabolic [id number] 20:38:00 Test Item Value Reference Range Interpretation [...] validated by th e MDRD study and marta li be interpretedwith caution.eGFR Re sult Interpretation: eGFR > or = 60 is in t he Normal RangeeGF R < 60 may mean kidney diseaseeGFR < 1 5 may mean kidney failureRange s recommended by the National Kidney Foundation,http ://nkd ep.nih.gov [id number] 20:31:00 Test Item Value Reference Range Interpretation [...] = THC) POSITIVE Negative A CBC with [id number] 20:30:00 Test Item Value Reference Range Interpretation [...] code = ALYMPH) 5.8 K/cumm 0.5-4.6 H [place] Abs (test code = AMONO) 0.8 K/cumm 0.0-1.2 N Eos Abs (test code = AEOS) 0.43 K/cumm 0.00-0.74 N Baso Abs (test code = ABASO) 0.1 K/cumm 0.00-0.21 [facility], [id number] 20:29:00 Test Item Value Reference Range Interpretation Comments Preg Qual [Se] (test code = BSHCG) Negative Negative N
[2022-03-25] MEDS ORDERED: ONDANSETRON 4 MG/2 ML VIAL ONE (08:47)
[2022-03-25] MEDS ORDERED: PANTOPRAZOLE 40 MG INJ ONE (08:47)
[2022-03-25 08:50] LABS: Urine Blood Negative (Negative); Urine Glucose Negative (Negative); Urine Protein Negative (Negative); Urine Specific Gravity >=1.030 (1.005-1.030); Urine pH 5.5 (5.0-7.0)
[2022-03-25 09:01] LABS: Absolute Lymphocytes (CBC) 4.4 K/uL (0.7-4.9); Hematocrit 32.4 % (36.0-45.0); Lymphocytes % 43.3 % (15.3-44.8); MCV 89.4 fL (80-100); MPV 7.7 fL (7.6-11.3); RBC Red Blood Cell Count 3.63 M/uL (3.86-4.86)
[2022-03-25 09:05] LABS: Urine Bacteria <20 /HPF (<20); Urine RBC None Seen /HPF (None Seen)
[2022-03-25 09:29] LABS: Albumin 3.8 g/dL (3.4-5.0); Bilirubin Total 0.3 mg/dL (0.2-1.0)
[2022-03-25 09:31] LABS: Potassium 3.3 mmol/L (3.5-5.1)
--- NOTE | 2022-03-25 10:07 | ER ---
Nurse's Notes [facility] Name: Iliana Tolentino Age: 41 yrs Sex: Female : 1980 Arrival Date: 03/25/2022 Time: 08:04 Bed 19 Private MD: Diagnosis: Upper abdominal pain, unspecified Presentation: 03/25 08:08 Chief complaint: Patient states: I've been having stomach pains, I've been on depo shot iw , I had my period in January, I spotted in February for one day and that's it, I've been having heart burn and I've been having cramping , symptoms started about a week ago. Coronavirus screen: At this time, the client does not indicate any symptoms associated with coronavirus-19. Ebola Screen: Patient negative for fever greater than or equal to 101.5 degrees Fahrenheit, and additional compatible Ebola Virus Disease symptoms Patient denies exposure to infectious person. Patient denies travel to an Ebola-affected area in the 21 days before illness onset. No symptoms or risks identified at this time. Initial Sepsis Screen: Does the patient meet any 2 criteria? No. Patient's initial sepsis screen is negative. Does the patient have a suspected source of infection? No. Patient's initial sepsis screen is negative. Risk Assessment: Do you want to hurt yourself or someone else? Patient reports no desire to harm self or others. Onset of symptoms was March 17, 2022. 08:08 Method Of Arrival: Ambulatory iw 08:08 Acuity: KAROL 3 iw Historical: - Allergies: 08:11 No Known Allergies; iw - PMHx: 08:11 Anxiety; Ovarian cyst; iw 08:11 Bipolar disorder; iw - Immunization history:: Client reports having NOT received the Covid vaccine. - Social history:: Smoking status: Patient reports the use of cigarette tobacco products. Screenin:33 Abuse screen: Denies threats or abuse. Denies injuries from another. Nutritional chavez screening: No deficits noted. Tuberculosis screening: No symptoms or risk factors identified. Fall Risk None identified. Assessment: 08:33 General: Appears in no apparent distress. Behavior is agitated. Pain: Complains of pain chavez in abdomen. GI: Bowel sounds present X 4 quads. Abd is soft and non tender. 10:17 Reassessment: pt came back from CT upset that UPT is negative and requested blood chavez test. pt continues to be upset disbelief the UPT is negative ripped out IV and yelled out to cancel serum test and left ED. Vital Signs: 08:08 BP 132 / 100; Pulse 82; Resp 16; Temp 98.2; Pulse Ox 100% ; Weight 61.23 kg; Height 5 iw ft. 2 in. (157.48 cm); 08:08 Body Mass Index 24.69 (61.23 kg, 157.48 cm) iw ED Course: 08:04 Patient arrived in ED. rg4 08:10 Triage completed. iw 08:12 Arm band placed on. iw 08:13 Wilbert Shea PA is PHCP. cp 08:13 Wilbert Selby MD is Attending Physician. cp 08:30 Heather Brewer, PUMA is Primary Nurse. chavez 08:33 Patient has correct armband on for positive identification. Bed in low position. chavez 08:33 No provider procedures requiring assistance completed. chavez 08:53 Inserted saline lock: 20 gauge in right antecubital area, using aseptic technique. chavez 09:57 CT Abd/Pelvis - IV Contrast Only In Process Unspecified. EDMS Administered Medications: 08:53 Drug: Zofran (Ondansetron) 4 mg Route: IVP; Site: right antecubital; chavez 09:55 Follow up: Response: No adverse reaction chavez 08:53 Drug: ProTONIX (pantoprazole) 40 mg Route: IVP; Site: right antecubital; chavez 09:55 Follow up: Response: No adverse reaction chavez Medication: 08:33 VIS not applicable for this client. chavez Outcome: 10:06 Discharge ordered by . cp 10:06 Patient left the ED. iw Signatures: Dispatcher [employer] EDMS Nafisa Nava RN RN iw Wilbert Shea PA PA cp Garcia, Rubi rg4 Heather Brewer RN RN chavez Corrections: (The following items were deleted from the chart) 08:12 08:11 Allergies: ACETAMINOPHEN; iw iw 08:12 08:11 Allergies: Naproxen; iw iw 08:12 08:11 Allergies: Propoxyphene N-Acetaminophen; iw iw
--- NOTE | 2022-03-25 10:07 | EDPHYS ---
Physician Documentation [facility] Name: Iliana Tolentino Age: 41 yrs Sex: Female : 1980 Arrival Date: 03/25/2022 Time: 08:04 Bed 19 Private MD: Wilbert Kirk HPI: 03/25 08:30 This 41 yrs old Female presents to ER via Ambulatory with complaints of Abdominal Pain. cp 08:30 The patient presents with abdominal pain in the upper abdomen. The symptoms do not cp radiate. Associated signs and symptoms: Pertinent negatives: anorexia, constipation, diarrhea, fever, headache, shortness of breath, vaginal discharge, vomiting. The symptoms are described as intermittent. Historical: - Allergies: 08:11 No Known Allergies; iw - PMHx: 08:11 Anxiety; Ovarian cyst; iw 08:11 Bipolar disorder; iw - Immunization history:: Client reports having NOT received the Covid vaccine. - Social history:: Smoking status: Patient reports the use of cigarette tobacco products. ROS: 08:33 Constitutional: Negative for body aches, chills, fever, poor PO intake. cp 08:33 Eyes: Negative for injury, pain, redness, and discharge. cp 08:33 ENT: Negative for drainage from ear(s), ear pain, sore throat, difficulty swallowing, difficulty handling secretions. 08:33 Cardiovascular: Negative for chest pain, palpitations. 08:33 Respiratory: Negative for cough, shortness of breath, wheezing. 08:33 Abdomen/GI: Positive for abdominal pain, Negative for vomiting, diarrhea, constipation. 08:33 : Negative for urinary symptoms. 08:33 Neuro: Negative for altered mental status, headache, weakness. Exam: 08:35 Constitutional: The patient appears in no acute distress, alert, awake, non-toxic, well cp developed, well nourished. 08:35 Head/Face: Normocephalic, atraumatic. cp 08:35 Eyes: Periorbital structures: appear normal, Conjunctiva: normal, no exudate, no injection, Sclera: no appreciated abnormality, Lids and lashes: appear normal, bilaterally. 08:35 ENT: External ear(s): are unremarkable, Nose: is normal, Mouth: Lips: moist, Oral mucosa: moist, Posterior pharynx: Airway: no evidence of obstruction, patent. 08:35 Chest/axilla: Inspection: normal. 08:35 Cardiovascular: Rate: normal, Rhythm: regular. 08:35 Respiratory: the patient does not display signs of respiratory distress, Respirations: normal, no use of accessory muscles, no retractions, labored breathing, is not present, Breath sounds: are clear throughout, no decreased breath sounds, no stridor, no wheezing. 08:35 Abdomen/GI: Inspection: abdomen appears normal, Bowel sounds: active, all quadrants, Palpation: soft, in all quadrants, mild abdominal tenderness, in the right upper quadrant and right lower quadrant, rebound tenderness, is not appreciated, involuntary guarding, is not appreciated. 08:35 Back: CVA tenderness, is absent. 08:35 Skin: no rash present. Vital Signs: 08:08 BP 132 / 100; Pulse 82; Resp 16; Temp 98.2; Pulse Ox 100% ; Weight 61.23 kg; Height 5 iw ft. 2 in. (157.48 cm); 08:08 Body Mass Index 24.69 (61.23 kg, 157.48 cm) iw MDM: 08:15 Patient medically screened. jay 10:05 ED course: Patient requesting to leave prior to results of CT abdomen/pelvis. cp 10:05 Data reviewed: vital signs, nurses notes, lab test result(s). cp 10:05 Differential diagnosis: appendicitis, cholecystitis, Cholelithiasis, non-specific abd cp pain, pancreatitis, Pyelonephritis, Ureterolithiasis, urinary tract infection. Counseling: I had a detailed discussion with the patient and/or guardian regarding: the historical points, exam findings, and any diagnostic results supporting the discharge/admit diagnosis, lab results, to return to the emergency department if symptoms worsen or persist or if there are any questions or concerns that arise at home. 03/25 08:26 Order name: CBC with Diff; Complete Time: 09:41 cp 03/25 09:41 Interpretation: Normal except: RBC 3.63; HGB 11.6; HCT 32.4; VERITO% 37.9; EOSINOPHIL % cp 10.4; EOSA 1.1. 03/25 08:26 Order name: CMP; Complete Time: 09:41 cp 03/25 09:41 Interpretation: Normal except: K 3.3; GFR 86; CA 8.4. cp 03/25 08:26 Order name: Lipase; Complete Time: 09:41 cp 03/25 08:26 Order name: Urine Microscopic Only; Complete Time: 09:41 cp 08 09:41 Interpretation: Reviewed. cp 03/25 08:51 Order name: Urine Dipstick-Ancillary; Complete Time: 09:41 EDMS 03/25 09:41 Interpretation: Reviewed. cp 03/25 08:26 Order name: IV Saline Lock; Complete Time: 08:53 cp 03/25 08:26 Order name: Labs collected and sent; Complete Time: 08:53 cp 03/25 08:26 Order name: Urine Dipstick-Ancillary (obtain specimen); Complete Time: 08:53 cp 03/25 08:59 Order name: CT Abd/Pelvis - IV Contrast Only; Complete Time: 11:29 cp 03/25 11:30 Interpretation: Report reviewed. cp 03/25 09:51 Order name: Urine --Ancillary; Complete Time: 11:29 EDMS 03/25 11:29 Interpretation: Reviewed. cp 03/25 08:26 Order name: Urine Test (obtain specimen); Complete Time: 08:53 cp Administered Medications: 08:53 Drug: Zofran (Ondansetron) 4 mg Route: IVP; Site: right antecubital; chavez 09:55 Follow up: Response: No adverse reaction chavez 08:53 Drug: ProTONIX (pantoprazole) 40 mg Route: IVP; Site: right antecubital; chavez 09:55 Follow up: Response: No adverse reaction chavez Disposition Summary: 03/25/22 10:06 Discharge Ordered Location: Home cp Problem: new cp Symptoms: are unchanged cp Condition: Stable cp Diagnosis - Upper abdominal pain, unspecified cp Followup: cp - With: Private Physician - When: 1 - 2 days - Reason: Recheck today's complaints Discharge Instructions: - Discharge Summary Sheet cp - Abdominal Pain, Adult cp Forms: - Medication Reconciliation Form cp - Thank You Letter cp - Antibiotic Education cp - Prescription Opioid Use cp Prescriptions: - Protonix 40 mg Oral Tablet - take 1 tablet by ORAL route once daily; 30 tablet; Refills: 0, Product cp Selection Permitted Signatures: Dispatcher [facility] CenterWilbert Crews MD MD cha Williams, Irene, RN RN iw Page, Corey, PA PA cp Au-Stager, Heather, RN RN ha Corrections: (The following items were deleted from the chart) : Allergies: ACETAMINOPHEN; 08: Allergies: Naproxen; Allergies: Propoxyphene N-Acetaminophen;
--- NOTE | 2022-03-25 10:12 | RAD REPORT ---
EXAM DESCRIPTION: CTAbdomen Pelvis W Contrast - 03/25/2022 9:55 am CLINICAL HISTORY: abdominal pain COMPARISON: Abdomen Pelvis W Contrast dated 07/18/2021; Abdomen Pelvis W Contrast dated 12/11/2017 TECHNIQUE: CT of the abdomen and pelvis was performed. All CT scans are performed using dose optimization technique as appropriate and may include automated exposure control or mA/KV adjustment according to patient size. FINDINGS: Lower chest: No acute abnormality. Liver: No acute abnormality or suspicious lesions. Biliary: Cholecystectomy Stomach: No significant focal abnormality. Duodenum: No significant focal abnormality. Pancreas: No significant abnormality. Spleen: No significant abnormality. Adrenal: No suspicious lesions. Kidney/ureter: No hydronephrosis. No renal calculi. Too small to characterize and/or benign appearing renal lesions are noted. Retroperitoneum: No retroperitoneal adenopathy. Vascular: No aneurysm. Bowel: No significant focal abnormality. Appendix not identified. Patient may have had a prior append ectomy. Peritoneum: No ascites or free air. Bladder: Grossly unremarkable. Reproductive: No adnexal masses. Bones: No acute fracture. Other: n/a IMPRESSION: No acute intra-abdominal or pelvic finding.
[2022-03-25 10:21] VITALS: BP 132/100; TEMP 98.2; O2SAT 100
[2022-03-25 10:24] LABS: Urine Specific Gravity/Preg >1.030 (1.005-1.030)
== END 2022-03-25 10:06 | disposition home or self-care (01) ==
LOC: ER 08:01
DX: R10.10 Upper abdominal pain, unspecified (principal); Z72.0 Tobacco use
CPT/HCPCS: 36415; 74177; 80053; 81003; 81015; 81025; 83690; 85025; C9113; J2405; Q9967

== ENCOUNTER 2023-06-30 11:10 | Emergency (ER) | payer SELFPAY ==
--- OUTSIDE RECORDS SUMMARY | 2023-06-30 11:14 | XMS REPORT | Continuity of Care Document ---
:[address] [facility] t Address [address] [place] [address] [place] [id number] Care Team Providers Name Role Phone UNKNOWN, REFFERING Primary Care Physician Unavailable JUN LOWERY M.D., Amanda BARAHONA Attending Clinician Unavailable JUN LOWERY M.D., JUN Admitting Clinician Unavail able Problems This patient has no known problems. Allergies, Adverse Reactions, Alerts This patient has no known allergies or adverse reactions. Medications This patient has no known medications. Procedures This patient has no known procedures. Encounters Start End Encounter Admission Attending Care Care Encounter Source Date/Time Date/Time Type Type Clinicians Facility Department ID 2023-06-18 2023-06-18 Outpatient SFA SFA [id number] [place] 10:01:53 10:01:53 1102 F Cristo 2023-06-16 2023-06-16 Outpatient SFA SFA [id number] Alexander 13:35:34 13:35:34 1031 F Stout 2023-05-20 2023-05-20 Outpatient SFA SFA [id number] Alexander 08:40:51 08:40:51 1004 F Stout 2023-04-22 2023-04-22 Outpatient SFA SFA [id number] Alexander 09:41:13 09:41:13 0906 F Stout 2023-03-25 2023-03-25 Outpatient SFA SFA [id number] [place] 10:23:25 10:23:25 0809 F Cristo 2023-02-25 2023-02-25 Outpatient SFA SFA [id number] Alexander 13:55:18 13:55:18 0712 F Stout 2023-01-28 2023-01-28 Outpatient SFA SFA [id number] [place] 10:07:04 10:07:04 0614 F Stout 2022-12-31 2022-12-31 Outpatient SFA SFA [id number] Alexander 10:56:47 10:56:47 0517 F Stout 2022-12-02 2022-12-02 Outpatient SFA SFA [id number] Alexander 11:14:01 11:14:01 0418 F Stout 2022-10-27 2022-10-27 Outpatient SFA SFA [id number] Alexander 13:07:01 13:07:01 0313 F Stout 2022-09-22 2022-09-22 Outpatient SFA SFA [id number] Alexander 10:28:06 10:28:06 0206 F Stout 2022-09-04 2022-09-04 Outpatient SFA SFA [id number] Alexander 15:35:49 15:35:49 0119 F Stout 2022-08-22 2022-08-22 Outpatient SFA SFA [id number] Alexander 09:34:00 09:34:00 0106 F Stout 2022-07-23 2022-07-23 Outpatient SFA SFA [id number] Alexander 08:47:00 08:47:00 1207 F Stout 2022-07-22 2022-07-22 Outpatient SFA SFA [id number] Alexander 13:52:26 13:52:26 1206 F Stout 2022-07-21 2022-07-21 Outpatient SFA SFA [id number] Alexander 18:01:54 18:01:54 1205 F Stout 2022-07-11 2022-07-11 Outpatient SFA SFA [id number] Alexander 13:59:52 13:59:52 1125 F Stout 2022-06-27 2022-06-27 Outpatient SFA SFA [id number] Alexander 16:10:32 16:10:32 1111 F Stout 2022-05-29 2022-05-29 Outpatient SFA SFA [id number] Alexander 13:29:04 13:29:04 1013 F Stout Results Test Description Test Time Test Comments Results Result Comments Source AMPHETAMINES, QUANT, URINE 2023-05-23 14:10:56 Test Item Value Reference Range Interpretation Comme nts AMPHETAMINE INTERP (test code Positive A = 40397) AMPHETAMINE QNT (test code = >5000 ng/mL <100 H 00631) METHAMPHETAMINE INTERP (test Positive A code = 35752) METHAMPHETAMINE QNT (test code >5000 ng/mL <100 H = 10986) MDA INTERP (test code = 37842) Negative MDA QNT (test code = 93363) <50 ng/mL <100 MDMA INTERP (test code = Negative 899727) MDMA QNT (test code = 869155) <50 ng/mL <100 Reference range indicates cutoff for positive re sult determination.L imit of detection and quantitation (L OD/Q) thresholds may be lowerthan po sitive cutoff. Results detecte d above LOD/Q but below cutoffare interpreted as Below Cutoff. Specime n Type: Urine Urine drug and metabo lite concentrations are dependent o n manyfactors, including patie nt compliance, drug dosing, dosing interval,individual variation in dr ug absorption and metabolism, uri neconcentration, and limitations of testing. Assay is intended formed ical purposes only, not for forensi c use. This test was developed and i ts performance characteristics determined by [facility] ([facility]). It has not beencleared or approved by the U.S. Food and D rug Administration (FDA).The FDA h as determined that such clearance or approval is notnecessary. T his test is used for clinical purpos es and should not beregarded as i nvestigational or for research. SRL i s qualified toperform high complexity testing under the Clinical Labora toryImprovement Amendments (CLI A). TESTING PERFORMED AT [facility] [address] [place] [address], [address], [address] [address] CLIA NO: [id number] BUPRENORPHINE, QUANT, [id number] 14:10:56 Test Item Value Reference Interpretation Comments Range BUPRENORPHINE Positive A INTERP (test code = 47971) BUPRENORPHINE QNT 265 ng/mL <5 H Reference range indicates (test code = cutoff for posi tive result 65031) determination. Specimen Type: Urine Urine pedro g and metabolite conc entrations are dependent on ma nyfactors, including patie nt compliance, drug dosing, do sing interval,indivi dual variation in drug absorpt ion and metabolism, urineconcentrat ion, and limitations of testing. Assay is intended for medical purposes only, not for forensic use. T his test was developed and i ts performance characteristics determined by [facility] ([facility]). It has n ot beencleared or approved by the U.S. Food and Drug Admini stration (FDA).The FDA h as determined that such clear ance or approval is not necessary. This test is us ed for clinical purpos es and should not beregarded as investigational or for research. [facility] i s qualified toperform high complexity testing under t he Clinical LaboratoryImpro vement Amendments (CLI A). TESTING PERFORMED AT [facility] [address], [address], [address] [place], [place] [address] CLIA NO: [id number] UNL ESS OTHERWISE INDICATED, ALL TESTING PERFORMED AT [facility] [address] [place] [address] LABORATORY DIRE CTOR: JJ ANDRE M.D. CLIA NUMBER [id number] CAP ACCREDITATION N O. [id number] DRUG ABUSE SCREEN 10 REFLEX [id number] 08:18:20 Test Item Value Reference Interpretation Comments Range AMPHETAMINES (test SEE REFLEX NEGATIVE A code = 3201) TESTING BARBITURATES (test NEGATIVE NEGATIVE code = 3202) BENZODIAZEPINES NEGATIVE NEGATIVE (test code = 3203) CANNABINOIDS (test NEGATIVE NEGATIVE code = 3204) COCAINE METABOLITE NEGATIVE NEGATIVE (test code = 3205) OPIATES (test code = NEGATIVE NEGATIVE 3209) OXYCODONE (test code NEGATIVE NEGATIVE = 30098) PHENCYCLIDINE (test NEGATIVE NEGATIVE code = 3210) METHADONE (test code NEGATIVE NEGATIVE = 3207) BUPRENORPHINE (test SEE REFLEX NEGATIVE A code = 26485) TESTING SOURCE (test code = URINE SEE BELOW FOR 305771) THRESHOLDS AND IMPORTANT METHOD NOTES * ANALYTE SCREENING CUTOF F CONFIRMATORY CUTOFF ___AMPHETAMINES 500 NG/ML 100 NG/MLBARBITURAT ES 200 NG/ML 100 NG/MLBENZODIAZE PINES 200 NG/ML 100 NG/MLCANNABINOI DS (THC) 20 NG/ML 15 NG/ MLCOCAINE METABOLITES 150 NG/ML 100 NG/MLOPIATE METABOLITES 300 NG/ML 100 NG/MLOXYCOD ONE 100 NG/ML 100 NG/MLPHENCYCLID INE (PCP) 25 NG/ML 25 NG/MLMETHADONE 300 NG/ML 100 NG/MLBUPRENORPH INE 5 NG/ML 5 NG/ML N OTE: Screening metho dology is qualitative Enz yme Immunoassay.The screening metho d may be less sensitive for certain medicationsincl uding clonazepam and lorazepam in the benzodia zepine assay andtramad ol or fentanyl in the opiate assay, amongst others. Patientcomplian ce, hydration statu s, timing and dose of med ications, drugabsorption and specimen qualit y may affect screenin g assay.For clini delilah discrepancies, consider directed testin g for specificcompoun ds or contact the lab oratory within specimen stability tofor sanchez for confirmatory te sting. This test is sp ecified for medicalpurp oses only. It is not valid for forensic us e. AMPHETAMINES, QUANT, [id number] 13:39:41 Test Item Value Reference Interpretation Comments Range AMPHETAMINE INTERP Positive A (test code = 08569) AMPHETAMINE QNT >5000 ng/mL <100 H (test code = 29110) METHAMPHETAMINE Positive A INTERP (test code = 87206) METHAMPHETAMINE QNT >5000 ng/mL <100 H (test code = 02811) MDA INTERP (test Negative code = 00894) MDA QNT (test code = <50 ng/mL <100 54294) MDMA INTERP (test Negative code = 683457) MDMA QNT (test code <50 ng/mL <100 Referen ce range = 998501) indicates cutof f for positive result determination.L imit of detection and quantitation (L OD/Q) thresholds may be lowerthan posit romel cutoff. Results detected above LOD/Q but below cutoffare inter preted as Below Cutoff. S pecimen Type: Urine Uri ne drug and metabolite concentrations are dependent on ma nyfactors, including patie nt compliance, pedro g dosing, dosing interval,indivi dual variation in dr ug absorption and metabolism, urineconcentrat ion, and limitations of testing. Assay is intend ed formedical purp oses only, not for forensi c use. This test was d eveloped and its perform ance characteristics determined by [facility] ([facility] ). It has not beencleared or approved by the U.S. Food and Drug Admini stration (FDA).The FDA h as determined that such clearance or ap proval is notnecessary. T his test is used for cli nical purposes and sh ould not beregarded as investigational or for research. [facility] i s qualified toper form high complexity test ing under the Clinical LaboratoryImpro vement Amendments (CLI A). TESTING PERFORM ED AT [facility] [address] [facility], [address], [address] [place] [address] CLIA NO: [id number] OPIATE, QUANT, [id number] 13:39:41 Test Item Value Reference Range Interpretation Comments MORPHINE INTERP Negative (test code = 65715) MORPHINE QNT (test <50 ng/mL <100 code = 26503) OXYMORPHONE INTERP Negative (test code = 29468) OXYMORPHONE QNT <50 ng/mL <100 (test code = 99740) HYDROMORPHONE Negative INTERP (test code = 905284) HYDROMORPHONE QNT <50 ng/mL <100 (test code = 749513) CODEINE INTERP Negative (test code = 21905) CODEINE QNT (test <50 ng/mL <100 code = 42609) OXYCODONE INTERP Negative (test code = 599543) OXYCODONE QNT (test <50 ng/mL <100 code = 073204) HYDROCODONE INTERP Negative (test code = 31785) HYDROCODONE QNT <50 ng/mL <100 (test code = 56795) 6-ACETYLMORPHINE Negative INTERP (test code = 677433) 6-ACETYLMORPHINE <10 ng/mL <10 Reference range indicates QNT (test code = cutoff for positive result 648835) determination.L imit of detection and q uantitation (LOD/Q) thresho lds may be lowerthan posit romel cutoff. Results detecte d above LOD/Q but below cutoffare interpreted as Below Cutoff. Specime n Type: Urine Urine pedro g and metabolite conc entrations are dependent o n manyfactors, in cluding patient complia nce, drug dosing, dosing interval,indivi dual variation in dr ug absorption and metabolism, urineconcentrat ion, and limitations of testing. Assay is intend ed formedical purp oses only, not for forensi c use. This test was develo ped and its performance characteristics determined by [facility] ([facility] ). It has not beencleared or approved by the U.S. Food and Drug Admini stration (FDA).The FDA h as determined that such clearance or ap proval is notnecessary. T his test is used for clinic al purposes and should not beregarded as investigatio nal or for research. [facility] i s qualified toperform high complexity testing under [facility] Clinical LaboratoryImpro vement Amendments (CLI A). TESTING PERFORMED AT [facility] [employer] [facility], [address], [place] [address] CLIA NO: [id number] BUPRENORPHINE, QUANT, [id number] 13:39:41 Test Item Value Reference Interpretation Comments Range BUPRENORPHINE Positive A INTERP (test code = 73649) BUPRENORPHINE QNT >500 ng/mL <5 H Reference range indicates (test code = cutoff for posi tive result 70094) determination. Specimen Type: Urine Urine pedro g and metabolite conc entrations are dependent on ma nyfactors, including patie nt compliance, drug dosing, do sing interval,indivi dual variation in drug absorpt ion and metabolism, urineconcentrat ion, and limitations of testing. Assay is intended for medical purposes only, not for forensic use. T his test was developed and i ts performance characteristics determined by [facility] ([facility]). It has n ot beencleared or approved by the U.S. Food and Drug Admini stration (FDA).The FDA h as determined that such clear ance or approval is not necessary. This test is us ed for clinical purpos es and should not beregarded as investigational or for research. [facility] i s qualified toperform high complexity testing under [facility] Clinical LaboratoryImpro vement Amendments (CLI A). TESTING PERFORMED AT [facility] [address], [address], [address] [place], [place] [address] CLIA NO: [id number] UNLE SS OTHERWISE INDICATED, ALL TESTING PERFORMED AT [facility] [address] [place] [address] LABORATORY DIRE CTOR: JJ ANDRE M.D. CLIA NUMBER [id number] CAP ACCREDITATION N O. [id number] DRUG ABUSE SCREEN 10 REFLEX [id number] 04:26:09 Test Item Value Reference Interpretation Comments Range AMPHETAMINES (test SEE REFLEX NEGATIVE A code = 3201) TESTING BARBITURATES (test NEGATIVE NEGATIVE code = 3202) BENZODIAZEPINES NEGATIVE NEGATIVE (test code = 3203) CANNABINOIDS (test NEGATIVE NEGATIVE code = 3204) COCAINE METABOLITE NEGATIVE NEGATIVE (test code = 3205) OPIATES (test code = NEGATIVE NEGATIVE 3209) OXYCODONE (test code SEE REFLEX NEGATIVE A = 29426) TESTING PHENCYCLIDINE (test NEGATIVE NEGATIVE code = 3210) METHADONE (test code NEGATIVE NEGATIVE = 3207) BUPRENORPHINE (test SEE REFLEX NEGATIVE A code = 28259) TESTING SOURCE (test code = URINE SEE BELOW FOR 380610) THRESHOLDS AND IMPORTANT METHOD NOTES * ANALYTE SCREENING CUTOF F CONFIRMATORY CUTOFF ___AMPHETAMINES 500 NG/ML 100 NG/MLBARBITURAT ES 200 NG/ML 100 NG/MLBENZODIAZE PINES 200 NG/ML 100 NG/MLCANNABINOI DS (THC) 20 NG/ML 15 NG/ MLCOCAINE METABOLITES 150 NG/ML 100 NG/MLOPIATE METABOLITES 300 NG/ML 100 NG/MLOXYCOD ONE 100 NG/ML 100 NG/MLPHENCYCLID INE (PCP) 25 NG/ML 25 NG/MLMETHADONE 300 NG/ML 100 NG/MLBUPREN ORPHINE 5 NG/ML 5 NG/ML NOTE: Screening metho dology is qualitative Enz yme Immunoassay.The screening metho d may be less sensitive for certain medicationsincl uding clonazepam and lorazepam in the benzodia zepine assay andtramad ol or fentanyl in the opiate assay, amongst others. Patientcomplian ce, hydration statu s, timing and dose of med ications, drugabsorption and specimen qualit y may affect screenin g assay.For clini delilah discrepancies, consider directed testin g for specificcompoun ds or contact the lab oratory within specimen stability tofor sanchez for confirmatory te sting. This test is sp ecified for medicalpurp oses only. It is not valid for forensic us e. AMPHETAMINES, QUANT, [id number] 14:04:39 Test Item Value Reference Interpretation Comments Range AMPHETAMINE INTERP Positive A (test code = 10848) AMPHETAMINE QNT 1691 ng/mL <100 H (test code = 70145) METHAMPHETAMINE Positive A INTERP (test code = 90210) METHAMPHETAMINE QNT 3867 ng/mL <100 H (test code = 00627) MDA INTERP (test Negative code = 97443) MDA QNT (test code = <50 ng/mL <100 46304) MDMA INTERP (test Negative code = 431603) MDMA QNT (test code <50 ng/mL <100 Referen ce range = 221173) indicates cutof f for positive result determination.L imit of detection and quantitation (L OD/Q) thresholds may be lowerthan posit romel cutoff. Results detected above LOD/Q but below cutoffare inter preted as Below Cutoff. S pecimen Type: Urine Uri ne drug and metabolite concentrations are dependent on ma nyfactors, including patie nt compliance, pedro g dosing, dosing interval,indivi dual variation in dr ug absorption and metabolism, urineconcentrat ion, and limitations of testing. Assay is intend ed formedical purp oses only, not for forensi c use. This test was d eveloped and its perform ance characteristics determined by [facility] ([facility] ). It has not beencleared or approved by the U.S. Food and Drug Admini stration (FDA).The FDA h as determined that such clearance or ap proval is notnecessary. T his test is used for cli nical purposes and sh ould not beregarded as investigational or for research. [facility] i s qualified toper form high complexity test ing under the Clinical LaboratoryImpro vement Amendments (CLI A). TESTING PERFORM ED AT [facility] [address] , [address], [address] [place] [address] CLIA NO: [id number] BUPRENORPHINE, QUANT, [id number] 14:04:39 Test Item Value Reference Interpretation Comments Range BUPRENORPHINE Positive A INTERP (test code = 52392) BUPRENORPHINE QNT 190 ng/mL <5 H Reference range indicates (test code = cutoff for posi tive result 21110) determination. Specimen Type: Urine Urine pedro g and metabolite conc entrations are dependent on ma nyfactors, including patie nt compliance, drug dosing, do sing interval,indivi dual variation in drug absorpt ion and metabolism, urineconcentrat ion, and limitations of testing. Assay is intended for medical purposes only, not for forensic use. T his test was developed and i ts performance characteristics determined by [facility] ([facility]). It has n ot beencleared or approved by the U.S. Food and Drug Admini stration (FDA).The FDA h as determined that such clear ance or approval is not necessary. This test is us ed for clinical purpos es and should not beregarded as investigational or for research. SRL i s qualified toperform high complexity testing under t he Clinical LaboratoryImpro vement Amendments (CLI A). TESTING PERFORMED AT [facility] [address], [address], [address] [place], [place] [address] CLIA NO: [id number] [facility] has important patho logy staff changes effecti ve 10/15/2022. New patholo gy staff will provide uninter rupted, excellent patie nt care and clinical consul tation. See URL: [email or web address]. UNLESS OTHER JIMENEZ INDICATED, ALL TESTING PERFORMED AT [facility] [address] [place] [address] LABORATORY DIRE CTOR: JJ ANDRE M.D. CLIA NUMBER [id number] CAP ACCREDITATION N O. [id number] DRUG ABUSE SCREEN 10 REFLEX [id number] 07:58:56 Test Item Value Reference Interpretation Comments Range AMPHETAMINES (test SEE REFLEX NEGATIVE A code = 3201) TESTING BARBITURATES (test NEGATIVE NEGATIVE code = 3202) BENZODIAZEPINES NEGATIVE NEGATIVE (test code = 3203) CANNABINOIDS (test NEGATIVE NEGATIVE code = 3204) COCAINE METABOLITE NEGATIVE NEGATIVE (test code = 3205) OPIATES (test code = NEGATIVE NEGATIVE 3209) OXYCODONE (test code NEGATIVE NEGATIVE = 31249) PHENCYCLIDINE (test NEGATIVE NEGATIVE code = 3210) METHADONE (test code NEGATIVE NEGATIVE = 3207) BUPRENORPHINE (test SEE REFLEX NEGATIVE A code = 77789) TESTING SOURCE (test code = URINE SEE BELOW FOR 530451) THRESHOLDS AND IMPORTANT METHOD NOTES * ANALYTE SCREENING CUTOF F CONFIRMATORY CUTOFF ___AMPHETAMINES 500 NG/ML 100 NG/MLBARBITURAT ES 200 NG/ML 100 NG/MLBENZODIAZE PINES 200 NG/ML 100 NG/MLCANNABINOI DS (THC) 20 NG/ML 15 NG/ MLCOCAINE METABOLITES 150 NG/ML 100 NG/MLOPIATE METABOLITES 300 NG/ML 100 NG/MLOXYCOD ONE 100 NG/ML 100 NG/MLPHENCYCLID INE (PCP) 25 NG/ML 25 NG/MLMETHADONE 300 NG/ML 100 NG/MLBUPREN ORPHINE 5 NG/ML 5 NG/ML NOTE: Screening metho dology is qualitative Enz yme Immunoassay.The screening metho d may be less sensitive for certain medicationsincl uding clonazepam and lorazepam in the benzodia zepine assay andtramad ol or fentanyl in the opiate assay, amongst others. Patientcomplian ce, hydration statu s, timing and dose of med ications, drugabsorption and specimen qualit y may affect screenin g assay.For clini delilah discrepancies, consider directed testin g for specificcompoun ds or contact the lab oratory within specimen stability tofor sanchez for confirmatory te sting. This test is sp ecified for medicalpurp oses only. It is not valid for forensic us e. COMPREHENSIVE METABOLIC [id number] 04:06:18 Test Item Value Reference Range Interpretation Comments GLUCOSE (test code = 111 MG/DL 70-99 H 2216) BUN (test code = 23 MG/DL 6-20 H 2207) CREATININE (test 0.70 MG/DL 0.60-1.30 code = 2213) eGFR (2020 CKD-EPI) 110 >60 (test code = 72994) ML/MIN/1.73 CALC BUN/CREAT (test 33 RATIO 6-28 H code = 2234) SODIUM (test code = 144 MEQ/L 780-675 0132) POTASSIUM (test code 5.0 MEQ/L 3.5-5.4 = 2227) CHLORIDE (test code 102 MEQ/L 95-107 = 2214) CARBON DIOXIDE (test 22 MEQ/L 19-31 code = 2205) CALCIUM (test code = 9.8 MG/DL 8.5-10.5 2208) PROTEIN, TOTAL (test 7.7 G/DL 6.1-8.3 code = 2228) ALBUMIN (test code = 5.0 G/DL 3.5-5.2 2200) CALC GLOBULIN (test 2.7 G/DL 1.9-3.7 code = 2239) CALC A/G RATIO (test 1.9 RATIO 1.0-2.6 code = 2233) BILIRUBIN, TOTAL <0.2 MG/DL See_Comment [Automated message] (test code = 2206) The syste m which generated this result transmit selina reference range : <=1.2. The refe rence range was not u sed to interpret th is result as normal/abnormal . ALKALINE PHOSPHATASE 73 U/L 40-113 (test code = 2203) AST (test code = 31 U/L 9-40 2217) ALT (test code = 25 U/L 5-40 2218) CBC W/AUTO DIFF WITH [id number] 03:51:13 Test Item Value Reference Range Interpretation [...] RBCS 0.00 K/UL 0.00-0.11 (test code = 58129) HEPATITIS PANEL, [id number] 03:25:28 Test Item Value Reference Range Interpretation Comments HEPATITIS A IgM (test NON-REACTIVE NON-REACTIVE code = 79451) HEPATITIS B CORE IgM NON-REACTIVE NON-REACTIVE (test code = 4644) HEPATITIS B SURF AG NON-REACTIVE NON-REACTIVE (test code = 2739) HEPATITIS C ANTIBODY NON-REACTIVE NON-REACTIVE (test code = 4675) INTERPRETATION (NOTE) Hepatitis A HEPATITIS A: (test code sero logy shows no = 2552) evidence of acu te hepatitis A. INTERPRETATION (NOTE) Hepatitis B HEPATITIS B: (test code sero logy shows no = 51005) evidence of acu te hepatitis B and no indication of exposure to hepatitis B vir us in the previous bettina eight months. INTERPRETATION (NOTE) Hepatitis C HEPATITIS C: (test code sero logy shows no = 18205) evidence of exposure to hepatitisC viru s at this time. I t can take up to 12 months after exposure tothe hepatitis C vir us for antibodies to become detectab le in the blood in certain patient s. HIV 1/2 4TH GEN, RFLX [id number] 03:25:28 Test Item Value Reference Range Interpretation Comments HIV 1/2 4TH GEN, NON-REACTIVE NON-REACTIVE UNLESS OTH ERWISE RFLX CONF (test INDICATED, A LL TESTING code = 3514) PERFORMED [facility]. [address] [place] [address] [employer] ATORY DIRECTOR: LUKASZ DUTTON M.D. CLIA NUMBER [id number] CAP ACCREDITATION N O. [id number] Chlamydia/GC [id number] 12:49:00 Test Item Value Reference Range Interpretation Comments Chlamydia trachomatis, CECILIA (test Negative Negative N code = 396643) Neisseria gonorrhoeae, CECILIA (test Negative Negative N code = 270190) Smear, Wet [id number] 10:19:00 Test Item Value Reference Range Interpretation Comments WBC (test code = JWBC) NONE EPITHELIAL CELLS (test code = MODERATE JEPITH) BACTERIA (test code = JBACTERIA) MODERATE CLUE CELLS (test code = JCLUE) NONE YEAST (test code = JYEAST) NONE TRICHOMONAS (test code = JTRICH) NONE RPR, [id number] 02:13:00 Test Item Value Reference Range Interpretation Comments RPR (test code = RPR) Non-Reactive Non-Reactive N Thyroid Stimulating Hormone (TSH)2017-08-21 08:25:00 Test Item Value Reference Range Interpretation Comments TSH (test code = TSH) 1.67 mIU/mL 0.270-4.200 N Lipid [id number] 08:25:00 Test Item Value Reference Range Interpretation Comments Cholesterol (test 172 mg/dL 0-200 N code = CHOL) Triglycerides (test 106 mg/dL 9-200 N code = TRIG) HDL (test code = 43 mg/dL 50-60 L HDL) Chol/HDL (test code 4.0 Ratio 0.0-4.4 N = CHOLPHDL) LDL, Calculated 108 0-130 N (NOTE)RISK O F HEART (test code = LDLC) DISEASEPu blished by [place] Heart AssociationAnal yte Optimal Boderli ne Increased RiskC HOL <200 200-239 >240TRI G <150 150-199 >200HDL Male: >60 <40HDL Fem saravanan: >60 <50LDL <100 130 -159 >160LDL NEAR O PTIMAL IS 100-129 VLDL (test code = 21 mg/dL 5-40 N VLDL) LDL/HDL (test code = 3 LDLPHDL) BHCG, Serum, [id number] 07:53:00 Test Item Value Reference Range Interpretation Comments Preg Qual [Se] (test code = BSHCG) Negative Negative N Alcohol/Ethanol, [id number] 20:38:00 Test Item Value Reference Range Interpretation Comments Alcohol, Ethyl <0.01 g/dL 0.00-0.01 N Intoxicated 0 .080 g/dL (test code = ETOH) or more Comprehensive Metabolic [id number] 20:38:00 Test Item Value Reference Range Interpretation [...] by the [employer] Kid[employer] Foundation,http ://nkd ep.nih.gov [id number] 20:31:00 Test Item Value Reference Range Interpretation [...] = THC) POSITIVE Negative A CBC with [id number] 20:30:00 Test Item Value Reference Range Interpretation [...] code = ALYMPH) 5.8 K/cumm 0.5-4.6 H Seward Abs (test code = AMONO) 0.8 K/cumm 0.0-1.2 N Eos Abs (test code = AEOS) 0.43 K/cumm 0.00-0.74 N Baso Abs (test code = ABASO) 0.1 K/cumm 0.00-0.21 N BHCG, Serum, [id number] 20:29:00 Test Item Value Reference Range Interpretation Comments Preg Qual [Se] (test code = BSHCG) Negative Negative N
--- NOTE | 2023-06-30 12:16 | RAD REPORT ---
EXAM DESCRIPTION: CT - Head Brain Wo Cont - 06/30/2023 12:10 pm CLINICAL HISTORY: HEADACHE COMPARISON: Head Brain Wo Cont dated 01/15/2017 TECHNIQUE: All CT scans are performed using dose optimization technique as appropriate and may inclu de automated exposure control or mA/KV adjustment according to patient size. FINDINGS: No intracranial hemorrhage, hydrocephalus or extra-axial fluid collection.No areas of brai n edema or evidence of midline shift. The paranasal sinuses and mastoids are clear. The calvarium is intact. IMPRESSION: No acute intracranial abnormality.
--- NOTE | 2023-06-30 12:24 | RAD REPORT ---
EXAM DESCRIPTION: RAD - Shoulder Right 2 View - 06/30/2023 12:15 pm CLINICAL HISTORY: PAIN COMPARISON: No comparisons FINDINGS/IMPRESSION: No acute fracture. No malalignment. No significant focal degenerative changes.
--- NOTE | 2023-06-30 12:24 | RAD REPORT ---
EXAM DESCRIPTION: RAD - Chest Single View - 06/30/2023 12:15 pm CLINICAL HISTORY: BLUNT CHEST TRAUMA COMPARISON: Chest Single View dated 12/11/2017; CHEST PA AND LAT 2 VIEW dated 11/23/2014 FINDINGS: Lines: None. Lungs: No evidence of edema or pneumonia. Pleural: No significant pleural effusions or pneumothorax. Cardiac: The heart size is within normal limits. Mediastinum: Within normal limits. Bones: No acute fractures. Other: None IMPRESSION: No acute cardiopulmonary disease.
--- NOTE | 2023-06-30 12:39 | ER ---
Nurse's Notes [facility] Name: Iliana Tolentino Age: 43 yrs Sex: Female : 1980 Arrival Date: 06/30/2023 Time: 11:10 Bed 17 Private MD: Diagnosis: Fall on same level from slipping, tripping and stumbling without subsequent striking against object;Unspecified injury of head, initial encounter;Chest pain, unspecified-right upper chest wall pain;Pain in right shoulder Presentation: 06/30 11:34 Chief complaint: Patient states: she fell at the store while getting ice 2 days ago kc6 reports feeling like her legs came out from under her, hit her head and passed out. pt reports r chest and shoulder pain. Coronavirus screen: At this time, the client does not indicate any symptoms associated with coronavirus-19. Ebola Screen: No symptoms or risks identified at this time. Initial Sepsis Screen: Does the patient meet any 2 criteria? No. Patient's initial sepsis screen is negative. Does the patient have a suspected source of infection? No. Patient's initial sepsis screen is negative. Risk Assessment: Do you want to hurt yourself or someone else? Patient reports no desire to harm self or others. Onset of symptoms was June 30, 2023. 11:34 Method Of Arrival: Ambulatory [facility] 11:34 Acuity: KAROL 4 kc6 Triage Assessment: 11:37 General: Appears in no apparent distress. comfortable, Behavior is calm, cooperative, kc6 appropriate for age. Pain: Complains of pain in chest and right arm. EENT: No signs and/or symptoms were reported regarding the EENT system. Neuro: Level of Consciousness is awake, alert, obeys commands, Oriented to person, place, time, situation, Appropriate for age Reports headache Denies dizziness. Cardiovascular: Capillary refill < 3 seconds. Respiratory: Airway is patent Trachea midline Respiratory effort is even, unlabored, Respiratory pattern is regular, symmetrical. GI: No signs and/or symptoms were reported involving the gastrointestinal system. : No signs and/or symptoms were reported regarding the genitourinary system. Derm: No signs and/or symptoms reported regarding the dermatologic system. Skin is intact, is healthy with good turgor, Skin is pink, warm \T\ dry. Musculoskeletal: No signs and/or symptoms reported regarding the musculoskeletal system. Circulation, motion, and sensation intact. Capillary refill < 3 seconds, Range of motion: intact in all extremities. Historical: - Allergies: 11:37 No Known Allergies; kc6 - PMHx: 11:37 Anxiety; Bipolar disorder; Ovarian cyst; kc6 - PSHx: 11:37 Cholecystectomy; kc6 - Immunization history:: Client reports having NOT received the Covid vaccine. Flu vaccine is not up to date. - Social history:: Smoking status: Patient reports the use of cigarette tobacco products, smokes one-half pack cigarettes per day. Screenin:38 [facility] ED Fall Risk Assessment (Adult) History of falling in the last 3 months, kc6 including since admission Yes- single mechanical fall (1 pt) Confusion or Disorientation No (0 pts) Intoxicated or Sedated No (0 pts) Impaired Gait No (0 pts) Mobility Assist Device Used No (0 pt) Altered Elimination No (0 pt) Score/Fall Risk Level 0 - 2 = Low Risk. Abuse screen: Denies threats or abuse. Denies injuries from another. Nutritional screening: No deficits noted. Tuberculosis screening: No symptoms or risk factors identified. Assessment: 11:39 Reassessment: please see triage assessment. kc6 12:39 Reassessment: Patient appears in no apparent distress at this time. No changes from [facility] previously documented assessment. Patient and/or family updated on plan of care and expected duration. Pain level reassessed. Patient is alert, oriented x 3, equal unlabored respirations, skin warm/dry/pink. Vital Signs: 11:34 BP 128 / 82; Pulse 66; Resp 16 S; Pulse Ox 100% on R/A; Weight 58.97 kg (R); Height 5 kc6 ft. 3 in. (R); 11:34 Body Mass Index 23.03 (58.97 kg, 160.02 cm) [facility] ED Course: 11:12 Patient arrived in ED. mr 11:13 Asia Ramos FNP-C is [facility]. kb 11:13 Renny Stewart MD is Attending Physician. kb 11:23 Francisca Lyle, PUMA is Primary Nurse. kc6 11:37 Triage completed. kc6 11:37 Arm band placed on. kc6 11:38 Patient has correct armband on for positive identification. Bed in low position. Call kc6 light in reach. Side rails up X 1. Client placed on continuous cardiac and pulse oximetry monitoring. NIBP monitoring applied. 11:39 Patient maintains SpO2 saturation greater than 95% on room air. kc6 12:12 CT Head Brain wo Cont In Process Unspecified. EDMS 12:16 Chest Single View XRAY In Process Unspecified. EDMS 12:16 Shoulder Right (2 View) XRAY In Process Unspecified. EDMS 13:13 No provider procedures requiring assistance completed. Patient did not have IV access kc6 during this emergency room visit. Administered Medications: No medications were administered Medication: 13:13 VIS not applicable for this client. kc6 Outcome: 12:39 Discharge ordered by . seble 13:13 Discharged to home ambulatory, kc6 13:13 Condition: good 13:13 Discharge instructions given to patient, Instructed on discharge instructions, follow up and referral plans. medication usage, Demonstrated understanding of instructions, follow-up care, medications, Prescriptions given X 2, 13:13 Patient left the ED. kc6 Signatures: Dispatcher [employer] EDMS Asia Ramos, CASSIDY-C ACCOUNT DEVELOPER-Blaire Ma, Reg Reg mr Francisca Lyle, RN RN kc6
--- NOTE | 2023-06-30 12:39 | EDPHYS ---
Physician Documentation [facility] Name: Iliana Tolentino Age: 43 yrs Sex: Female : 1980 Arrival Date: 06/30/2023 Time: 11:10 Bed 17 Private MD: ED Physician Renny Stewart HPI: 06/30 12:05 This 43 yrs old Female presents to ER via Ambulatory with complaints of Fall Injury. kb 12:05 Patient is a 43-year-old female who presents for right upper chest and shoulder pain kb after a fall 2 to 3 days ago. States she was walking on the sidewalk and tripped causing her to fall. Reports she did hit her head and may have lost consciousness. Denies nausea, vomiting, confusion.. Historical: - Allergies: 11:37 No Known Allergies; kc6 - PMHx: 11:37 Anxiety; Bipolar disorder; Ovarian cyst; kc6 - PSHx: 11:37 Cholecystectomy; kc6 - Immunization history:: Client reports having NOT received the Covid vaccine. Flu vaccine is not up to date. - Social history:: Smoking status: Patient reports the use of cigarette tobacco products, smokes one-half pack cigarettes per day. ROS: 12:06 Constitutional: Negative for fever, chills, and weight loss, kb 12:06 Cardiovascular: Positive for chest pain, of the anterior aspect of right upper chest, 12:06 MS/extremity: Positive for pain, of the anterior aspect of right shoulder, 12:06 Neuro: Positive for loss of consciousness, 12:06 All other systems are negative, Exam: 12:06 Constitutional: This is a well developed, well nourished patient who is awake, alert, kb and in no acute distress. Head/Face: Normocephalic, atraumatic. ENT: Moist Mucous membranes Cardiovascular: Regular rate Respiratory: Respirations even and unlabored. No increased work of breathing. Talking in full sentences Abdomen/GI: Soft, non-tender. No distention Skin: Warm, dry with normal turgor. Normal color. MS/ Extremity: Pulses equal, no cyanosis. Neurovascular intact. Full, normal range of motion. Neuro: Awake and alert, GCS 15, oriented to person, place, time, and situation. Moves all extremities. Normal gait. 12:06 Chest/axilla: Inspection: normal, Palpation: tenderness, that is moderate, of the anterior aspect of right upper chest, that totally reproduces the patient's complaints, Vital Signs: 11:34 BP 128 / 82; Pulse 66; Resp 16 S; Pulse Ox 100% on R/A; Weight 58.97 kg (R); Height 5 kc6 ft. 3 in. (R); 11:34 Body Mass Index 23.03 (58.97 kg, 160.02 cm) kc6 MDM: 11:13 Patient medically screened. kb 12:07 Differential diagnosis: abrasion, closed head injury, contusion, fracture. Data kb reviewed: vital signs, nurses notes. 12:34 Counseling: I had a detailed discussion with the patient and/or guardian regarding the kb historical points, exam findings, and any diagnostic results supporting the discharge/admit diagnosis, radiology results, the need for outpatient follow up, a family practitioner, to return to the emergency department if symptoms worsen or persist or if there are any questions or concerns that arise at home. 06/30 11:25 Order name: Chest Single View XRAY; Complete Time: 12:29 kb 06/30 11:25 Order name: Shoulder Right (2 View) XRAY; Complete Time: 12:29 kb 06/30 11:58 Order name: CT Head Brain wo Cont; Complete Time: 12:19 kb Administered Medications: No medications were administered Disposition: 14:00 I reviewed the patient's care provided by the Advanced Practice Provider and agree with jr11 the diagnosis and treatment plan. Disposition Summary: 06/30/23 12:39 Discharge Ordered Notes: Location: Home kb Condition: Stable kb Diagnosis - Fall on same level from slipping, tripping and stumbling without subsequent kb striking against object - Unspecified injury of head, initial encounter kb - Chest pain, unspecified - right upper chest wall pain kb - Pain in right shoulder kb Followup: kb - With: Emergency Department - When: As needed - Reason: Worsening of condition Followup: kb - With: Private Physician - When: 2 - 3 days - Reason: Recheck today's complaints, Continuance of care, Re-evaluation by your physician Discharge Instructions: - Discharge Summary Sheet kb - Musculoskeletal Pain kb Forms: - Medication Reconciliation Form kb - Thank You Letter kb - Antibiotic Education kb - Prescription Opioid Use kb - Patient Portal Instructions kb - Leadership Thank You Letter kb Prescriptions: - Diclofenac Sodium 75 mg Oral tablet, delayed release (enteric coated) - take 1 tablet ORAL route 2 times per day As needed; 30 tablet; Refills: 0, kb Product Selection Permitted - orphenadrine citrate 100 mg Oral Tablet Sustained Release - take 1 tablet ORAL route 2 times per day As needed; 20 tablet; Refills: 0, kb Product Selection Permitted Signatures: Dispatcher [employer] Asia Belle FNP-C FNP-Ckb Rosillo, Jose, MD MD [id number] Francisca Lyle RN RN kc6
[2023-06-30 13:27] VITALS: BP 128/82; O2SAT 100
== END 2023-06-30 13:13 | disposition home or self-care (01) ==
LOC: ER 11:10
DX: S09.90XA Unspecified injury of head, initial encounter (principal); R07.89 Other chest pain; M25.511 Pain in right shoulder; W01.0XXA Fall on same level from slipping, tripping and stumbling without subsequent striking against object, initial encounter
CPT/HCPCS: 70450; 71045; 99284